=== PATIENT | female | born 1970 | race Caucasian/White ===

== ENCOUNTER 2016-08-04 07:29 | Inpatient (IN) | payer OTHER ==
[2016-08-04] MEDS ORDERED: IPRATROPIUM-ALBUTEROL 3 ML NEB INHALATION STA ×2 (08:02→10:04)
[2016-08-04] MEDS ORDERED: ONDANSETRON 4 MG/2 ML VIAL IVP STA (08:02)
--- NOTE | 2016-08-04 08:05 | ED ---
General Adult HPI - General Chief complaint: Upper Respiratory Infection Stated complaint: flu like symptoms, irregular heartrate Time Seen by Provider: 08/04/16 07:35 Source: patient, RN notes reviewed Mode of arrival: ambulatory Limitations: no limitations - History of Present Illness Initial comments: This is a 46-year-old female who presents emergency Department complaining of nausea vomiting and diarrhea for 6 days. Patient states her kids had the same thing but they have since gotten over it. Patient states she has no specific area of abdominal pain however it's just diffuse achiness because she still has a fever. Patient also states she's been wheezing and having some shortness of breath per patient states she is a smoker. Patient states she has a mild headache and somewhat lightheaded. Patient denies any dysuria hematuria urinary frequency. Patient denies any back pain. Patient denies any recent injury or trauma. Patient states she has a little bit lightheaded and generally weak all over. - Related Data Allergies Allergy/AdvReac Type Severity Reaction Status Date / Time latex Allergy Rash/Hives Verified 03/25/15 19:36 nifedipine [From Procardia] Allergy Unknown Verified 03/25/15 19:36 ofloxacin [From Floxin] Allergy Unknown Verified 03/25/15 19:37 olmesartan medoxomil Allergy Unknown Verified 03/25/15 19:36 [From Benicar] Review of Systems ROS Statement: Those systems with pertinent positive or pertinent negative responses have been documented in the HPI. ROS Other: All systems not noted in ROS Statement are negative. Past Medical History Past Medical History: Asthma, Hypertension Additional Past Medical History / Comment(s): migraines History of Any Multi-Drug Resistant Organisms: None Reported Past Surgical History: Cholecystectomy, Ear Surgery, Hysterectomy, Tubal Ligation Additional Past Surgical History / Comment(s): carpal tunnel, cone biopsy, core biopsy Past Psychological History: Anxiety Smoking Status: Current every day smoker Past Alcohol Use History: None Reported Past Drug Use History: None Reported General Exam - General Exam Comments Initial Comments: GENERAL: Patient is well-developed and well-nourished. Patient is nontoxic and well- hydrated and is in moderate distress. ENT: Neck is soft and supple. No significant lymphadenopathy is noted. Oropharynx is clear. Dry mucous membranes. Neck has full range of motion without eliciting any pain. EYES: The sclera were anicteric and conjunctiva were pink and moist. Extraocular movements were intact and pupils were equal round and reactive to light. Eyelids were unremarkable. PULMONARY: Unlabored respirations. Good breath sounds bilaterally. No audible rales rhonchi or wheezing was noted. CARDIOVASCULAR: There is a regular rate and rhythm without any murmurs gallops or rubs. ABDOMEN: Soft and nontender with normal bowel sounds. No palpable organomegaly was noted. There is no palpable pulsatile mass. SKIN: The upper chest just anything neck patient has erythematous rash is nontender and blanching. NEUROLOGIC: Patient is alert and oriented x3. Cranial nerves II through XII are grossly intact. Motor and sensory are also intact. Normal speech, volume and content. Symmetrical smile. MUSCULOSKELETAL: Normal extremities with adequate strength and full range of motion. No lower extremity swelling or edema. No calf tenderness. LYMPHATICS: No significant lymphadenopathy is noted PSYCHIATRIC: Normal psychiatric evaluation. Normal interpersonal interactions appears functionally intact in deals appropriately with others. No signs of depression. No signs of anxiety. Limitations: no limitations Course Vital Signs 08/04/16 08/04/16 08/04/16 07:31 09:02 09:20 Temperature 100.9 F H Pulse Rate 113 H 89 90 Respiratory 24 Rate Blood Pressure 188/96 O2 Sat by Pulse 95 Oximetry 08/04/16 08/04/16 08/04/16 09:37 09:46 10:25 Temperature 100.0 F H Pulse Rate 103 H 92 Respiratory 20 Rate Blood Pressure 136/77 O2 Sat by Pulse 95 Oximetry 08/04/16 10:54 Temperature Pulse Rate 117 H Respiratory 18 Rate Blood Pressure 145/61 O2 Sat by Pulse 92 L Oximetry Medical Decision Making - Medical Decision Making EKG shows sinus tachycardia at 107 bpm AL interval is on a 42 QRS 36 QT interval 374 QTC is 499. Patient's EKG shows a left bundle branch block. I went back into reevaluate the patient patient stated both of her ears hurt. I looked in both ears she had bulging tympanic membranes bilaterally with some erythema. I started the patient on some Rocephin. Chest x-ray shows no acute abnormality. I gave the patient 2 breathing treatments while in the emergency department continued to evaluate her throughout she continued to wheeze. He started patient on steroids. I spoke with sixto admitted I spoke with Dr. Ross she agreed to admit the patient admitted the patient I wrote orders I continued to appear on the floor antibiotics floor. Continued so from AL interval - Lab Data Result diagrams: 08/04/16 08:43 08/04/16 08:43 Lab Results 08/04/16 08/04/16 08/04/16 Range/Units 08:43 08:43 08:43 WBC 5.9 (3.8-10.6) k/uL RBC 5.23 (3.80-5.40) m/uL Hgb 16.3 H (11.4-16.0) gm/dL Hct 48.9 H (34.0-46.0) % MCV 93.5 (80.0-100.0) fL MCH 31.1 (25.0-35.0) pg MCHC 33.3 (31.0-37.0) g/dL RDW 13.2 (11.5-15.5) % Plt Count 106 L (150-450) k/uL Neutrophils % 79 % Lymphocytes % 12 % Monocytes % 5 % Eosinophils % 1 % Basophils % 1 % Neutrophils # 4.7 (1.3-7.7) k/uL Lymphocytes # 0.7 L (1.0-4.8) k/uL Monocytes # 0.3 (0-1.0) k/uL Eosinophils # 0.1 (0-0.7) k/uL Basophils # 0.1 (0-0.2) k/uL PT (9.0-12.0) sec INR (<1.1) APTT (22.0-30.0) sec Sodium 138 (137-145) mmol/L Potassium 3.6 (3.5-5.1) mmol/L Chloride 101 (98-107) mmol/L Carbon Dioxide 25 (22-30) mmol/L Anion Gap 12 mmol/L BUN 12 (7-17) mg/dL Creatinine 0.89 (0.52-1.04) mg/dL Est GFR (MDRD) Af Amer >60 (>60 ml/min/1.73 sqM) Est GFR (MDRD) Non-Af >60 (>60 ml/min/1.73 sqM) Glucose 97 (74-99) mg/dL Plasma Lactic Acid Larry (0.7-2.0) mmol/L Calcium 8.9 (8.4-10.2) mg/dL Total Bilirubin 0.6 (0.2-1.3) mg/dL AST 23 (14-36) U/L ALT 26 (9-52) U/L Alkaline Phosphatase 61 (38-126) U/L Total Creatine Kinase (30-135) U/L CK-MB (CK-2) (0.0-2.4) ng/mL CK-MB (CK-2) Rel Index Troponin I (0.000-0.034) ng/mL NT-Pro-B Natriuret Pep pg/mL Total Protein 7.2 (6.3-8.2) g/dL Albumin 4.0 (3.5-5.0) g/dL Urine Color Urine Appearance (Clear) Urine pH (5.0-8.0) Ur Specific [place] (1.001-1.035) Urine Protein (Negative) Urine Glucose (UA) (Negative) Urine Ketones (Negative) Urine Blood (Negative) Urine Nitrite (Negative) Urine Bilirubin (Negative) Urine Urobilinogen (<2.0) mg/dL Ur Leukocyte Esterase (Negative) Urine RBC (0-5) /hpf Urine WBC (0-5) /hpf Calcium Oxalate Crystal (None) /hpf Urine Bacteria (None) /hpf Urine Mucus (None) /hpf Influenza Type A RNA Not Detected (Not Detectd) Influenza Type B (PCR) Not Detected (Not Detectd) 08/04/16 08/04/16 08/04/16 Range/Units 08:43 08:43 08:43 WBC (3.8-10.6) k/uL RBC (3.80-5.40) m/uL Hgb (11.4-16.0) gm/dL Hct (34.0-46.0) % MCV (80.0-100.0) fL MCH (25.0-35.0) pg MCHC (31.0-37.0) g/dL RDW (11.5-15.5) % Plt Count (150-450) k/uL Neutrophils % % Lymphocytes % % Monocytes % % Eosinophils % % Basophils % % Neutrophils # (1.3-7.7) k/uL Lymphocytes # (1.0-4.8) k/uL Monocytes # (0-1.0) k/uL Eosinophils # (0-0.7) k/uL Basophils # (0-0.2) k/uL PT 10.9 (9.0-12.0) sec INR 1.1 (<1.1) APTT 35.2 H (22.0-30.0) sec Sodium (137-145) mmol/L Potassium (3.5-5.1) mmol/L Chloride (98-107) mmol/L Carbon Dioxide (22-30) mmol/L Anion Gap mmol/L BUN (7-17) mg/dL Creatinine (0.52-1.04) mg/dL Est GFR (MDRD) Af Amer (>60 ml/min/1.73 sqM) Est GFR (MDRD) Non-Af (>60 ml/min/1.73 sqM) Glucose (74-99) mg/dL Plasma Lactic Acid Larry 1.2 (0.7-2.0) mmol/L Calcium (8.4-10.2) mg/dL Total Bilirubin (0.2-1.3) mg/dL AST (14-36) U/L ALT (9-52) U/L Alkaline Phosphatase (38-126) U/L Total Creatine Kinase 107 (30-135) U/L CK-MB (CK-2) 0.3 (0.0-2.4) ng/mL CK-MB (CK-2) Rel Index 0.3 Troponin I <0.012 (0.000-0.034) ng/mL NT-Pro-B Natriuret Pep pg/mL Total Protein (6.3-8.2) g/dL Albumin (3.5-5.0) g/dL Urine Color Urine Appearance (Clear) Urine pH (5.0-8.0) Ur Specific [place] (1.001-1.035) Urine Protein (Negative) Urine Glucose (UA) (Negative) Urine Ketones (Negative) Urine Blood (Negative) Urine Nitrite (Negative) Urine Bilirubin (Negative) Urine Urobilinogen (<2.0) mg/dL Ur Leukocyte Esterase (Negative) Urine RBC (0-5) /hpf Urine WBC (0-5) /hpf Calcium Oxalate Crystal (None) /hpf Urine Bacteria (None) /hpf Urine Mucus (None) /hpf Influenza Type A RNA (Not Detectd) Influenza Type B (PCR) (Not Detectd) 08/04/16 08/04/16 Range/Units 08:53 10:54 WBC (3.8-10.6) k/uL RBC (3.80-5.40) m/uL Hgb (11.4-16.0) gm/dL Hct (34.0-46.0) % MCV (80.0-100.0) fL MCH (25.0-35.0) pg MCHC (31.0-37.0) g/dL RDW (11.5-15.5) % Plt Count (150-450) k/uL Neutrophils % % Lymphocytes % % Monocytes % % Eosinophils % % Basophils % % Neutrophils # (1.3-7.7) k/uL Lymphocytes # (1.0-4.8) k/uL Monocytes # (0-1.0) k/uL Eosinophils # (0-0.7) k/uL Basophils # (0-0.2) k/uL PT (9.0-12.0) sec INR (<1.1) APTT (22.0-30.0) sec Sodium (137-145) mmol/L Potassium (3.5-5.1) mmol/L Chloride (98-107) mmol/L Carbon Dioxide (22-30) mmol/L Anion Gap mmol/L BUN (7-17) mg/dL Creatinine (0.52-1.04) mg/dL Est GFR (MDRD) Af Amer (>60 ml/min/1.73 sqM) Est GFR (MDRD) Non-Af (>60 ml/min/1.73 sqM) Glucose (74-99) mg/dL Plasma Lactic Acid Larry (0.7-2.0) mmol/L Calcium (8.4-10.2) mg/dL Total Bilirubin (0.2-1.3) mg/dL AST (14-36) U/L ALT (9-52) U/L Alkaline Phosphatase (38-126) U/L Total Creatine Kinase (30-135) U/L CK-MB (CK-2) (0.0-2.4) ng/mL CK-MB (CK-2) Rel Index Troponin I (0.000-0.034) ng/mL NT-Pro-B Natriuret Pep 79 pg/mL Total Protein (6.3-8.2) g/dL Albumin (3.5-5.0) g/dL Urine Color Yellow Urine Appearance Clear (Clear) Urine pH 6.0 (5.0-8.0) Ur Specific [place] 1.024 (1.001-1.035) Urine Protein 1+ H (Negative) Urine Glucose (UA) Negative (Negative) Urine Ketones 4+ H (Negative) Urine Blood Negative (Negative) Urine Nitrite Negative (Negative) Urine Bilirubin Negative (Negative) Urine Urobilinogen <2.0 (<2.0) mg/dL Ur Leukocyte Esterase Negative (Negative) Urine RBC 9 H (0-5) /hpf Urine WBC 4 (0-5) /hpf Calcium Oxalate Crystal Rare H (None) /hpf Urine Bacteria Rare H (None) /hpf Urine Mucus Rare H (None) /hpf Influenza Type A RNA (Not Detectd) Influenza Type B (PCR) (Not Detectd) Critical Care Time Critical Care Time: Yes Total Critical Care Time: 35 Disposition Clinical Impression: Otitis media, Bronchitis with bronchospasm, Gastroenteritis Disposition: ADMITTED IP TO THIS HOSP Referrals: Anival Gann DO [Primary Care Provider] - 1-2 days Time of Disposition: 11:35
[2016-08-04] MEDS ORDERED: ACETAMINOPHEN IV (For NPO) 1,000 MG in EMPTY BAG 1 BAG IVPB STA (08:06)
[2016-08-04] MEDS ORDERED: IBUPROFEN IV 600 MG in SODIUM CHLORIDE 0.9% 250 ML IV STA (08:06)
[2016-08-04] MEDS: SODIUM CHLORIDE 0.9% 500 ML IV SCH ×2 (08:27→08:28)
[2016-08-04 08:58] LABS: Basophils # (A) 0.1 k/uL (0-0.2); Basophils % (A) 1 %; CH 31.8; CHCM 34.1; Eosinophils # (A) 0.1 k/uL (0-0.7); Eosinophils % (A) 1 %; HCT 48.9 % (34.0-46.0); HDW 2.26; HGB 16.3 gm/dL (11.4-16.0); Luc # (Auto) 0.15; Luc % (Auto) 3; Lymphocytes # (A) 0.7 k/uL (1.0-4.8); Lymphocytes % (A) 12 %; MCH 31.1 pg (25.0-35.0); MCHC 33.3 g/dL (31.0-37.0); MCV 93.5 fL (80.0-100.0); Mean Platelet Volume 8.8; Monocytes # (A) 0.3 k/uL (0-1.0); Monocytes % (A) 5 %; Neutrophils # (A) 4.7 k/uL (1.3-7.7); Neutrophils % (A) 79 %; RBC 5.23 m/uL (3.80-5.40); RDW 13.2 % (11.5-15.5); WBC 5.9 k/uL (3.8-10.6); WBC (Perox) 5.83
[2016-08-04 09:09] LABS: ALT 26 U/L (9-52); AST 23 U/L (14-36); Alkaline Phosphatase 61 U/L (38-126); Anion Gap 12 mmol/L; Blood Urea Nitrogen 12 mg/dL (7-17); Calcium 8.9 mg/dL (8.4-10.2); Carbon Dioxide 25 mmol/L (22-30); Chloride 101 mmol/L (98-107); Glucose 97 mg/dL (74-99); Non-African American GFR(MDRD) >60 (>60 ml/min/1.73 sqM); Potassium 3.6 mmol/L (3.5-5.1); Sodium 138 mmol/L (137-145); Total Bilirubin 0.6 mg/dL (0.2-1.3); Total Protein 7.2 g/dL (6.3-8.2)
[2016-08-04 09:10] LABS: INR 1.1 (<1.1); Partial Thromboplastin Time 35.2 sec (22.0-30.0); Prothrombin Time 10.9 sec (9.0-12.0)
[2016-08-04 09:21] LABS: Creatine Kinase 107 U/L (30-135)
[2016-08-04 09:33] LABS: Creatine Kinase MB 0.3 ng/mL (0.0-2.4); Troponin I <0.012 ng/mL (0.000-0.034)
--- NOTE | 2016-08-04 09:50 | XR ---
EXAMINATION TYPE: XR chest 2V DATE OF EXAM: 08/04/2016 8:56 AM COMPARISON: Prior chest x-ray January 29, 2012 HISTORY: Fever, cough, and congestion. TECHNIQUE: Frontal and lateral views of the chest are obtained. FINDINGS: Some mild central vascular congestion is felt present. There are tiny bilateral pleural eff usions with blunting of posterior costophrenic angles. There is no suspicious focal airspace opacity or pneumothorax The cardiac silhouette size is within normal limits. The osseous structures are int act. IMPRESSION: Suspect fluid overload state as there are new tiny bilateral pleural effusions and mild central vascular congestion present.
[2016-08-04] MEDS ORDERED: methylPREDNISolone SOD SUCCI 125 MG/2 ML VIAL IV STA (10:04)
[2016-08-04 11:14] LABS: Appearance,Urine Clear (Clear); Bacteria,Urine Rare /hpf; Bilirubin,Urine Negative (Negative); Calcium Oxalate Crystals,Urine Rare /hpf; Glucose,Urine (UA) Negative (Negative); Ketones,Urine 4+ (Negative); Leukocyte Esterase,Urine Negative (Negative); Mucus,Urine Rare /hpf; Nitrite,Urine Negative (Negative); Particle Count 8339; Protein,Urine 1+ (Negative); RBC,Urine 9 /hpf (0-5); Specific Gravity,Urine 1.024 (1.001-1.035); UA Billing (MACRO vs. MICRO) MICRO; Urobilinogen,Urine <2.0 mg/dL (<2.0); WBC,Urine 4 /hpf (0-5)
[2016-08-04] MEDS ORDERED: ONDANSETRON ODT 4 MG TAB PO PRN (11:40)
[2016-08-04] MEDS: SODIUM CHLORIDE 0.9% 1,000 ML IV SCH ×2 (11:55→20:57)
[2016-08-04] MEDS: AZITHROMYCIN 500 MG TAB PO SCH (14:29)
[2016-08-04] MEDS ORDERED: FUROSEMIDE 20 MG TAB PO PRN (14:55)
[2016-08-04] MEDS: IPRATROPIUM-ALBUTEROL 3 ML NEB INHALATION SCH ×3 (15:00→20:25)
[2016-08-04] MEDS ORDERED: BENZONATATE 100 MG CAP PO STA (16:35)
--- NOTE | 2016-08-04 16:41 | P.HPIM ---
History of Present Illness H&P Date: 08/04/16 Chief Complaint: wheezing diarrhea ThIs a pleasant 46-year-old lady patient of Dr. Gann. She has underlying history of asthma, hypertension migraines who presented to emergency room secondary to nausea vomiting and diarrhea for the past 6 days. It looks likefamily members also have the same problem, patient has diffuse muscle aches abdominal pain low-grade fever. She also has been wheezing with shortness of breath and is currently a smoker. Patient denies any urinary frequency no dysuria no hematuria, no recent falls no lightheadedness, patient has mild headache, she also has a generalized rash and weakness. she also uses her ventolin on a daily basis. she hasn,t seen her pcp in 1 year. no previous pulmonary doctor in past Emergency roomC was 5.9 creatinine 0.89 the rest of the liver function tests is normal platelet count is low at 106, urinalysis shows 4 WBC and 9 RBC castro tones 4+ gravity 1.024 and ntBNP of 81 ma influenza a and B PCR negative She was admitted secondary to dehydration and asthma COPD exacerbation has x- ray shows no suspicious focal airspace disease or pneumothorax, however there is tiny bilateral pleural effusion and mild central vascular congestion her nt BNP is normal Review of Systems Constitutional: Reports anorexia, Reports chills, Reports fatigue, Reports fever , Reports weakness, Denies as per HPI, Denies chronic headaches, Denies chronic pain, Denies daytime sleepiness, Denies lethargy, Denies malaise, Denies night sweats, Denies poor appetite, Denies sweats, Denies weight gain, Denies weight loss Ears, nose, mouth and throat: Reports as per HPI, Denies ant. neck pain, Denies bleeding gums, Denies dental pain, Denies dysphagia, Denies epistaxis, Denies headache, Denies hoarseness, Denies mouth pain, Denies nasal congestion, Denies nasal discharge, Denies neck fullness/pressure, Denies neck lump, Denies nose pain, Denies odynophagia, Denies post-nasal drip, Denies sinus pain, Denies sinus pressure, Denies swelling in mouth, Denies swelling in throat, Denies sore throat, Denies vertigo, Denies voice changes Cardiovascular: Reports as per HPI, Denies chest pain, Denies claudication, Denies decreased exercise tolerance, Denies dyspnea on exertion, Denies edema, Denies high blood pressure, Denies irregular heart beat, Denies leg edema, Denies lightheadedness, Denies orthopnea, Denies palpitations, Denies paroxysmal nocturnal dyspnea, Denies phlebitis, Denies rapid heart beat, Denies shortness of breath, Denies syncope Respiratory: Reports as per HPI, Reports cough, Reports cough with sputum, Reports wheezing, Denies congestion, Denies dyspnea, Denies excessive sputum, Denies hemoptysis, Denies home oxygen, Denies pain, Denies pain on inspiration, Denies pleurisy, Denies respiratory infections, Denies sleep apnea, Denies snoring Gastrointestinal: Reports as per HPI, Denies abdominal pain, Denies belching, Denies bloating, Denies BRBPR, Denies change in bowel habits, Denies coffee ground emesis, Denies constipation, Denies diarrhea, Denies dyspepsia, Denies early satiety, Denies excessive gas, Denies heartburn, Denies hematemesis, Denies hematochezia, Denies indigestion, Denies jaundice, Denies lactose intolerance, Denies loss of appetite, Denies melena, Denies nausea, Denies vomiting Genitourinary: Reports as per HPI Menstruation: Reports as per HPI, Denies amenorrhea, Denies amenorrhea on BC, Denies currently menstrual, Denies cycle < 21 days, Denies cycle > 35 days, Denies cycle variable, Denies menses 1-7 days, Denies menses 8 or > days, Denies menses variable, Denies period heavy, Denies period light, Denies period normal, Denies period spotting, Denies post hysterectomy, Denies postmenopausal , Denies premenarcheal Musculoskeletal: Reports as per HPI, Denies arm numbness/tingling, Denies atrophy, Denies fractures, Denies frequent falls, Denies gait dysfunction, Denies hot joints, Denies leg numbness/tingling, Denies limitation of motion, Denies loss of height, Denies low back pain, Denies morning stiffness, Denies muscle cramps, Denies muscle weakness, Denies myalgias, Denies neck pain, Denies neck stiffness, Denies prior amputations, Denies redness of joints, Denies shooting arm pain, Denies shooting leg pain Integumentary: Reports rash Neurological: Reports as per HPI, Denies aphasia, Denies ataxia, Denies balance difficulties, Denies burning pain, Denies change in mentation, Denies change in smell/taste, Denies change in speech, Denies confusion, Denies convulsions, Denies double vision, Denies gait dysfunction, Denies head injury, Denies headaches, Denies hearing difficulties, Denies lack of coordination, Denies loss of vision, Denies memory loss, Denies migraines, Denies motor disturbance, Denies numbness, Denies paralysis, Denies paresthesias, Denies seizures, Denies sensory deficit, Denies spasticity, Denies syncope, Denies tic, Denies tingling , Denies transient paralysis, Denies tremors, Denies vertigo, Denies weakness, Denies visual changes Psychiatric: Reports as per HPI Endocrine: Reports as per HPI, Denies cold intolerance, Denies deepening of the voice, Denies excessive sweating, Denies excessive thirst, Denies fatigue, Denies flushing, Denies heat intolerance, Denies high blood sugars, Denies increase in ring/shoe/hat size, Denies low blood sugars, Denies nocturia, Denies palpitations, Denies polydipsia, Denies polyphagia, Denies polyuria, Denies proptosis, Denies recent glucocorticoid use, Denies thyroid mass, Denies weight change Hematologic/Lymphatic: Reports as per HPI, Denies easy bleeding, Denies easy bruising, Denies lymphadenopathy, Denies lymphedema, Denies thrombophilia Allergic/Immunologic: Reports as per HPI, Denies allergic rhinitis, Denies anaphylaxis, Denies angioedema, Denies gluten intolerance, Denies persistent infections, Denies seasonal allergies, Denies urticaria, Denies wheezing Past Medical History Past Medical History: Asthma, Hypertension Additional Past Medical History / Comment(s): migraines History of Any Multi-Drug Resistant Organisms: None Reported Past Surgical History: Cholecystectomy, Ear Surgery, Hysterectomy, Tubal Ligation Additional Past Surgical History / Comment(s): carpal tunnel, cone biopsy, core biopsy Past Psychological History: Anxiety Smoking Status: Current some day smoker Past Alcohol Use History: None Reported Past Drug Use History: None Reported Medications and Allergies Home Medications Medication Instructions Recorded Confirmed Type Albuterol Inhaler [Ventolin Hfa 2 puff INHALATION RT-QID PRN 08/04/16 08/04/16 History Inhaler] Furosemide [Lasix] 20 mg PO DAILY PRN 08/04/16 08/04/16 History Losartan/Hydrochlorothiazide 1 tab PO DAILY 08/04/16 08/04/16 History [Losartan-Hctz 50-12.5 mg Tab] cloNIDine HCL [Catapres] 0.1 mg PO HS 08/04/16 08/04/16 History Allergies Allergy/AdvReac Type Severity Reaction Status Date / Time latex Allergy Dyspnea/Bret Verified 08/04/16 11:49 h/Hives ofloxacin [From Floxin] Allergy Swelling Verified 08/04/16 11:49 of Ear Drums nifedipine [From Procardia] AdvReac Increased Verified 08/04/16 11:49 Blood Pressure olmesartan medoxomil AdvReac Decreased Verified 08/04/16 11:49 [From Benicar] Heart Rate Physical Exam Vitals: Vital Signs Temp Pulse Pulse Resp BP BP Pulse Ox 08/04/16 15:45 97.8 F 106 H 16 178/84 93 L 08/04/16 15:13 92 08/04/16 15:03 88 93 L 08/04/16 14:42 97.9 F 106 H 16 156/79 93 L 08/04/16 12:07 98.8 F 109 H 18 131/64 94 L Intake and Output 08/04/16 08/04/16 08/04/16 06:59 14:59 22:59 Other: Voiding Method Toilet # Voids 1 - Constitutional General appearance: cooperative, no acute distress, obese - EENT Eyes: anicteric sclerae, EOMI, PERRLA, dentition normal, normal appearance ENT: hearing grossly normal, NA/AT, normal oropharynx - Neck Neck: no lymphadenopathy, normal ROM, no other, no rigidity, no stridor, no thyromegaly - Respiratory Respiratory: bilateral: CTA, negative: diminished, dullness, rales - Cardiovascular Rhythm: regular Heart sounds: normal: S1, S2 Abnormal Heart Sounds: no systolic murmur, no diastolic murmur, no rub, no S3 Gallop, no S4 Gallop, no click, no other - Gastrointestinal General gastrointestinal: soft - Integumentary Integumentary: normal - Neurologic Neurologic: CNII-XII intact - Musculoskeletal Musculoskeletal: gait normal, strength equal bilaterally - Psychiatric Psychiatric: A&O x's 3, intact judgment & insight Results CBC & Chem 7: 08/04/16 08:43 08/04/16 08:43 Labs: Laboratory Results WBC 5.9 k/uL (3.8-10.6) 08/04/16 08:43 RBC 5.23 m/uL (3.80-5.40) 08/04/16 08:43 Hgb 16.3 gm/dL (11.4-16.0) H 08/04/16 08:43 Hct 48.9 % (34.0-46.0) H 08/04/16 08:43 MCV 93.5 fL (80.0-100.0) 08/04/16 08:43 MCH 31.1 pg (25.0-35.0) 08/04/16 08:43 MCHC 33.3 g/dL (31.0-37.0) 08/04/16 08:43 RDW 13.2 % (11.5-15.5) 08/04/16 08:43 Plt Count 106 k/uL (150-450) L 08/04/16 08:43 Neutrophils % 79 % 08/04/16 08:43 Lymphocytes % 12 % 08/04/16 08:43 Monocytes % 5 % 08/04/16 08:43 Eosinophils % 1 % 08/04/16 08:43 Basophils % 1 % 08/04/16 08:43 Neutrophils # 4.7 k/uL (1.3-7.7) 08/04/16 08:43 Lymphocytes # 0.7 k/uL (1.0-4.8) L 08/04/16 08:43 Monocytes # 0.3 k/uL (0-1.0) 08/04/16 08:43 Eosinophils # 0.1 k/uL (0-0.7) 08/04/16 08:43 Basophils # 0.1 k/uL (0-0.2) 08/04/16 08:43 PT 10.9 sec (9.0-12.0) 08/04/16 08:43 INR 1.1 (<1.1) 08/04/16 08:43 APTT 35.2 sec (22.0-30.0) H 08/04/16 08:43 Sodium 138 mmol/L (137-145) 08/04/16 08:43 Potassium 3.6 mmol/L (3.5-5.1) 08/04/16 08:43 Chloride 101 mmol/L (98-107) 08/04/16 08:43 Carbon Dioxide 25 mmol/L (22-30) 08/04/16 08:43 Anion Gap 12 mmol/L 08/04/16 08:43 BUN 12 mg/dL (7-17) 08/04/16 08:43 Creatinine 0.89 mg/dL (0.52-1.04) 08/04/16 08:43 Est GFR (MDRD) Af Amer >60 (>60 ml/min/1.73 sqM) 08/04/16 08:43 Est GFR (MDRD) Non-Af >60 (>60 ml/min/1.73 sqM) 08/04/16 08:43 Glucose 97 mg/dL (74-99) 08/04/16 08:43 Plasma Lactic Acid Larry 1.2 mmol/L (0.7-2.0) 08/04/16 08:43 Calcium 8.9 mg/dL (8.4-10.2) 08/04/16 08:43 Total Bilirubin 0.6 mg/dL (0.2-1.3) 08/04/16 08:43 AST 23 U/L (14-36) 08/04/16 08:43 ALT 26 U/L (9-52) 08/04/16 08:43 Alkaline Phosphatase 61 U/L (38-126) 08/04/16 08:43 Total Creatine Kinase 107 U/L (30-135) 08/04/16 08:43 CK-MB (CK-2) 0.3 ng/mL (0.0-2.4) 08/04/16 08:43 CK-MB (CK-2) Rel Index 0.3 08/04/16 08:43 Troponin I <0.012 ng/mL (0.000-0.034) 08/04/16 08:43 NT-Pro-B Natriuret Pep 79 pg/mL 08/04/16 08:53 Total Protein 7.2 g/dL (6.3-8.2) 08/04/16 08:43 Albumin 4.0 g/dL (3.5-5.0) 08/04/16 08:43 Urine Color Yellow 08/04/16 10:54 Urine Appearance Clear (Clear) 08/04/16 10:54 Urine pH 6.0 (5.0-8.0) 08/04/16 10:54 Ur Specific [place] 1.024 (1.001-1.035) 08/04/16 10:54 Urine Protein 1+ (Negative) H 08/04/16 10:54 Urine Glucose (UA) Negative (Negative) 08/04/16 10:54 Urine Ketones 4+ (Negative) H 08/04/16 10:54 Urine Blood Negative (Negative) 08/04/16 10:54 Urine Nitrite Negative (Negative) 08/04/16 10:54 Urine Bilirubin Negative (Negative) 08/04/16 10:54 Urine Urobilinogen <2.0 mg/dL (<2.0) 08/04/16 10:54 Ur Leukocyte Esterase Negative (Negative) 08/04/16 10:54 Urine RBC 9 /hpf (0-5) H 08/04/16 10:54 Urine WBC 4 /hpf (0-5) 08/04/16 10:54 Calcium Oxalate Crystal Rare /hpf (None) H 08/04/16 10:54 Urine Bacteria Rare /hpf (None) H 08/04/16 10:54 Urine Mucus Rare /hpf (None) H 08/04/16 10:54 Influenza Type A RNA Not Detected (Not Detectd) 08/04/16 08:43 Influenza Type B (PCR) Not Detected (Not Detectd) 08/04/16 08:43 Thrombosis Risk Factor Assmnt - DVT/VTE Prophylaxis DVT/VTE Prophylaxis: Low risk, early ambulation encouraged - Choose All That Apply Any of the Below Risk Factors Present?: Yes Each Factor Represents 1 point: Age 41-60 years, Obesity (BMI >25) Other Risk Factors: No Thrombosis Risk Factor Assessment Total Risk Factor Score: 2 Thrombosis Risk Factor Assessment Level: Low Risk Assessment and Plan Plan: 1. Acute moderate persistent asthma/COPD exacerbation currently a smoker, patient will be given Solu-Medrol X milligrams every 6 hours with nebulized albuterol and Atrovent, Zithromax for bronchitis patient was recommended to quit smoking altogether, monitor x-rays and pulmonary compensation. tessalon and vistartil. patient needs steorid inhalers on discharge along with tapering prednisone 2. Hypertension on Hyzaar 50/12.5 at the press and Lasix when necessary 3. Ketonuria with acute dehydration secondary to viral syndrome presenting with diarrhea, stool studies will be obtained as symptoms are still persistentent, lasix on hold, IV hydrations provided 4. viral exanthem, doubt measles, or fifth disease or scarlatina. Cannot rule out rubeola or [place] measles. contact precautions. 5. mild thrombocytopenia. monitor cbc 4. Tobacco dependency patient will be offered nicotine patches, which cant take secondary to adhesive irritation, declined chantix. X 5. GI prophylaxis and DVT prophylaxis 6. lack of insurance coverage, delinquency prevention social worker on consult
[2016-08-04] MEDS: hydrOXYzine PAMOATE 25 MG CAP PO PRN (17:45)
[2016-08-04] MEDS: methylPREDNISolone SOD SUCCI 125 MG/2 ML VIAL IV SCH ×2 (17:45→23:50)
[2016-08-04] MEDS: cloNIDine HCL 0.1 MG TAB PO SCH (17:46)
[2016-08-04] MEDS ORDERED: ONDANSETRON 4 MG/2 ML VIAL IVP PRN (17:52)
[2016-08-04] MEDS: MELOXICAM 7.5 MG TAB PO PRN (18:47)
[2016-08-04] MEDS: FAMOTIDINE 20 MG TAB PO SCH (20:57)
[2016-08-04] MEDS: BENZONATATE 100 MG CAP PO SCH (20:57)
[2016-08-05] MEDS: IPRATROPIUM-ALBUTEROL 3 ML NEB INHALATION PRN (02:11)
[2016-08-05] MEDS: methylPREDNISolone SOD SUCCI 125 MG/2 ML VIAL IV SCH ×2 (05:53→12:22)
[2016-08-05] MEDS: SODIUM CHLORIDE 0.9% 1,000 ML IV SCH ×4 (05:53→20:50)
[2016-08-05] MEDS: hydrOXYzine PAMOATE 25 MG CAP PO PRN (06:05)
[2016-08-05] MEDS: MELOXICAM 7.5 MG TAB PO PRN (06:55)
[2016-08-05] MEDS: IPRATROPIUM-ALBUTEROL 3 ML NEB INHALATION SCH ×4 (07:49→20:29)
[2016-08-05 07:55] LABS: Basophils % (A) 0 %; CHCM 34.6; Eosinophils % (A) 0 %; HCT 45.8 % (34.0-46.0); HDW 2.42; HGB 15.5 gm/dL (11.4-16.0); Luc # (Auto) 0.11; Luc % (Auto) 1; Lymphocytes # (A) 0.9 k/uL (1.0-4.8); Lymphocytes % (A) 10 %; MCH 31.4 pg (25.0-35.0); MCHC 33.8 g/dL (31.0-37.0); MCV 92.9 fL (80.0-100.0); Mean Platelet Volume 9.4; Monocytes # (A) 0.2 k/uL (0-1.0); Monocytes % (A) 3 %; Neutrophils # (A) 7.7 k/uL (1.3-7.7); Neutrophils % (A) 86 %; RBC 4.93 m/uL (3.80-5.40); WBC 8.9 k/uL (3.8-10.6); WBC (Perox) 8.82
[2016-08-05 08:14] LABS: ALT 23 U/L (9-52); AST 36 U/L (14-36); Alkaline Phosphatase 41 U/L (38-126); Anion Gap 10 mmol/L; Blood Urea Nitrogen 8 mg/dL (7-17); Carbon Dioxide 24 mmol/L (22-30); Chloride 108 mmol/L (98-107); Glucose 144 mg/dL (74-99); Non-African American GFR(MDRD) >60 (>60 ml/min/1.73 sqM); Sodium 142 mmol/L (137-145); Total Bilirubin 0.6 mg/dL (0.2-1.3); Total Protein 6.9 g/dL (6.3-8.2)
[2016-08-05 08:27] LABS: Potassium 4.4 mmol/L (3.5-5.1)
[2016-08-05] MEDS: LOSARTAN-HCTZ 50-12.5 MG 1 EACH TAB PO SCH (08:45)
[2016-08-05] MEDS: FAMOTIDINE 20 MG TAB PO SCH ×2 (08:45→20:25)
[2016-08-05] MEDS: BENZONATATE 100 MG CAP PO SCH ×4 (08:46→20:27)
[2016-08-05] MEDS: CHLORPHEN-HYDROcod 8-10mg/5ml 5 ML ORAL.SYRG PO PRN (11:30)
[2016-08-05] MEDS: AZITHROMYCIN 500 MG TAB PO SCH (16:01)
[2016-08-05] MEDS ORDERED: hydrOXYzine PAMOATE 25 MG CAP PO PRN (17:27)
--- NOTE | 2016-08-05 18:29 | P.PN ---
Subjective ThIs a pleasant 46-year-old lady patient of Dr. Gann. She has underlying history of asthma, hypertension migraines who presented to emergency room secondary to nausea vomiting and diarrhea for the past 6 days. It looks likefamily members also have the same problem, patient has diffuse muscle aches abdominal pain low-grade fever. She also has been wheezing with shortness of breath and is currently a smoker. Patient denies any urinary frequency no dysuria no hematuria, no recent falls no lightheadedness, patient has mild headache, she also has a generalized rash and weakness Emergency roomC was 5.9 creatinine 0.89 the rest of the liver function tests is normal platelet count is low at 106, urinalysis shows 4 WBC and 9 RBC castro tones 4+ gravity 1.024 and ntBNP of 81 ma influenza a and B PCR negative She was admitted secondary to dehydration and asthma COPD exacerbation 08/05: Patient is extremely anxious currently she is mentally distress, hasn't slept since yesterday, she has incessant cough no hemoptysis, torso rash is getting better however more rash showed up in the neck and anterior chest. She tussionex started Vistaril increased decrease Solu-Medrol, maintained nebulized treatments and Tessalon Perles Objective - Vital Signs Vital signs: Vital Signs Temp 98 F 08/05/16 16:00 Pulse 100 08/05/16 16:12 Resp 16 08/05/16 16:00 BP 165/94 08/05/16 16:00 Pulse Ox 96 08/05/16 16:00 Intake & Output 08/04/16 08/05/16 08/05/16 18:59 06:59 18:59 Other: Voiding Method Toilet Toilet # Voids 1 - Constitutional General appearance: Present: cooperative, no acute distress. Absent: average body habitus, disheveled, mild distress, morbidly obese, obese, severe distress , thin - EENT Eyes: Present: anicteric sclerae, EOMI, PERRLA, dentition normal, normal appearance ENT: Present: hearing grossly normal, NA/AT, normal oropharynx - Neck Neck: Present: normal ROM. Absent: lymphadenopathy, other, rigidity, stridor, thyromegaly - Respiratory Respiratory: bilateral: diminished, wheezing, negative: rales, rhonchi, prolonged expiration, prolonged inspiration - Cardiovascular Rhythm: regular Heart sounds: normal: S1, S2 Abnormal Heart Sounds: Absent: systolic murmur, diastolic murmur, rub, S3 Gallop , S4 Gallop, click, other - Gastrointestinal General gastrointestinal: Present: normal bowel sounds, soft - Integumentary Integumentary: Present: normal, normal turgor, rash (Improving fine non- petechial rash) - Neurologic Neurologic: Present: CNII-XII intact - Musculoskeletal Musculoskeletal: Present: gait normal, strength equal bilaterally - Psychiatric Psychiatric: Present: A&O x's 3, appropriate affect, intact judgment & insight - Labs CBC & Chem 7: 08/05/16 06:36 08/05/16 06:36 Labs: Abnormal Lab Results - Last 24 Hours (Table) 08/05/16 08/05/16 Range/Units 06:36 06:36 Plt Count 104 L (150-450) k/uL Lymphocytes # 0.9 L (1.0-4.8) k/uL Chloride 108 H (98-107) mmol/L Glucose 144 H (74-99) mg/dL Assessment and Plan Plan: 1. Acute moderate persistent asthma/COPD exacerbation currently a smoker, patient will be given Solu-Medrol X milligrams every 6 hours with nebulized albuterol and Atrovent, Zithromax and Rocephin for bronchitis patient was recommended to quit smoking altogether, monitor x-rays and pulmonary compensation. tessalon and vistartil. patient needs steorid inhalers on discharge along with tapering prednisone 2. Hypertension on Hyzaar 50/12.5 at the press and Lasix when necessary 3. Ketonuria with acute dehydration secondary to viral syndrome presenting with diarrhea, stool studies will be obtained as symptoms are still persistentent, lasix on hold, IV hydrations provided 4. viral exanthem, doubt measles, or fifth disease or scarlatina. She also was exposed to moldy body of water prior to the rash breakout and the diarrhea Cannot rule out rubeola or [place] measles. Cannot rule out meningitis. Patient refuses any spinal tap, contact precautions. Patients rash is improving significantly with steroids 5. mild thrombocytopenia. monitor cbc 4. Tobacco dependency patient will be offered nicotine patches, which cant take secondary to adhesive irritation, declined chantix. 5. Chronic neck pain secondary to prior head concussion, no meningeal symptoms 5. GI prophylaxis and DVT prophylaxis 6. lack of insurance coverage, social media strategist on consult 10. Insomnia and anxiety, underlying history of anxiety depression possibly bipolar, sleep hygiene increase Vistaril to 50 mg when necessary, melatonin started Time with Patient: Greater than 30
[2016-08-05] MEDS: methylPREDNISolone SOD SUCCI 40 MG/ML 1 ML VIAL IV SCH (18:42)
[2016-08-05] MEDS ORDERED: LORazepam 2 MG/ML SYRINGE IV PRN (18:43)
[2016-08-05] MEDS ORDERED: LORazepam 2 MG/ML SYRINGE IV STA (18:45)
[2016-08-05 20:11] LABS: Glucose,Whole Blood 110 mg/dL (75-99)
[2016-08-05] MEDS: cloNIDine HCL 0.1 MG TAB PO SCH (20:25)
[2016-08-05] MEDS ORDERED: hydrOXYzine PAMOATE 25 MG CAP PO SCH (21:00)
[2016-08-06] MEDS: SODIUM CHLORIDE 0.9% 1,000 ML IV SCH (00:17)
[2016-08-06] MEDS: CHLORPHEN-HYDROcod 8-10mg/5ml 5 ML ORAL.SYRG PO PRN ×2 (00:17→12:21)
[2016-08-06] MEDS: methylPREDNISolone SOD SUCCI 40 MG/ML 1 ML VIAL IV SCH ×2 (00:19→08:37)
[2016-08-06] MEDS: IPRATROPIUM-ALBUTEROL 3 ML NEB INHALATION PRN (00:26)
[2016-08-06 07:30] LABS: Basophils # (A) 0.1 k/uL (0-0.2); Basophils % (A) 1 %; CH 31.2; Eosinophils % (A) 0 %; HCT 46.3 % (34.0-46.0); HDW 2.38; HGB 15.2 gm/dL (11.4-16.0); Luc # (Auto) 0.19; Luc % (Auto) 2; Lymphocytes # (A) 1.1 k/uL (1.0-4.8); Lymphocytes % (A) 9 %; MCH 31.2 pg (25.0-35.0); MCHC 32.7 g/dL (31.0-37.0); MCV 95.3 fL (80.0-100.0); Mean Platelet Volume 8.8; Monocytes # (A) 0.4 k/uL (0-1.0); Monocytes % (A) 3 %; Neutrophils # (A) 10.5 k/uL (1.3-7.7); Neutrophils % (A) 86 %; RBC 4.86 m/uL (3.80-5.40); RDW 13.2 % (11.5-15.5); WBC 12.3 k/uL (3.8-10.6); WBC (Perox) 12.31
[2016-08-06 07:53] LABS: ALT 22 U/L (9-52); AST 42 U/L (14-36); Alkaline Phosphatase 52 U/L (38-126); Anion Gap 12 mmol/L; Blood Urea Nitrogen 9 mg/dL (7-17); Calcium 9.6 mg/dL (8.4-10.2); Carbon Dioxide 28 mmol/L (22-30); Chloride 104 mmol/L (98-107); Glucose 97 mg/dL (74-99); Non-African American GFR(MDRD) >60 (>60 ml/min/1.73 sqM); Potassium 3.9 mmol/L (3.5-5.1); Sodium 144 mmol/L (137-145); Total Bilirubin 0.5 mg/dL (0.2-1.3); Total Protein 7.2 g/dL (6.3-8.2)
[2016-08-06] MEDS: FAMOTIDINE 20 MG TAB PO SCH (08:44)
[2016-08-06] MEDS: LOSARTAN-HCTZ 50-12.5 MG 1 EACH TAB PO SCH (08:44)
[2016-08-06] MEDS: BENZONATATE 100 MG CAP PO SCH ×2 (08:44→15:59)
[2016-08-06] MEDS: IPRATROPIUM-ALBUTEROL 3 ML NEB INHALATION SCH ×3 (09:21→16:35)
[2016-08-06] MEDS ORDERED: LORazepam 1 MG TAB PO PRN (11:35)
[2016-08-06] MEDS ORDERED: VENLAFAXINE HCL ER 75 MG CAP PO SCH (11:45)
[2016-08-06] MEDS: AZITHROMYCIN 500 MG TAB PO SCH (12:10)
--- NOTE | 2016-08-06 14:13 | P.DS ---
Providers Date of admission: 08/04/16 16:42 Expected date of discharge: 08/06/16 Attending physician: Yaritza Bronson Primary care physician: Anival Gann [facility] Course: ThIs a pleasant 46-year-old lady patient of Dr. Gann. She has underlying history of asthma, hypertension migraines who presented to emergency room secondary to nausea vomiting and diarrhea for the past 6 days. It looks likefamily members also have the same problem, patient has diffuse muscle aches abdominal pain low-grade fever. She also has been wheezing with shortness of breath and is currently a smoker. Patient denies any urinary frequency no dysuria no hematuria, no recent falls no lightheadedness, patient has mild headache, she also has a generalized rash and weakness Emergency roomC was 5.9 creatinine 0.89 the rest of the liver function tests is normal platelet count is low at 106, urinalysis shows 4 WBC and 9 RBC castro tones 4+ gravity 1.024 and ntBNP of 81 ma influenza a and B PCR negative She was admitted secondary to dehydration and asthma COPD exacerbation 08/05: Patient is extremely anxious currently she is mentally distress, hasn't slept since yesterday, she has incessant cough no hemoptysis, torso rash is getting better however more rash showed up in the neck and anterior chest. She tussionex started Vistaril increased decrease Solu-Medrol, maintained nebulized treatments and Tessalon Perles 08/06: Blood culture showing no growth at 24 hours. Urine culture is showing contamination. Sputum culture is in process. Plan was to decrease Solu-Medrol today and start prednisone in the morning the patient has a need to leave today. She has had no further diarrhea. Measles and [place] measles also ruled out. Rash is improved. Patient will be discharged home today in stable condition. Discharge diagnoses: 1. Acute moderate persistent asthma and COPD exacerbation 2. Hypertension 3. Ketonuria with acute dehydration secondary to viral syndrome presenting with diarrhea 4. viral exanthem 5. mild thrombocytopenia. 4. Tobacco dependency 5. Chronic neck pain secondary to prior head concussion, no meningeal symptoms 6. Insomnia and anxiety, underlying history of generalized anxiety disorder, bipolar depression Discharge plan: Return home Impression and plan of care have been directed as dictated by the signing physician. Mitra Shay nurse practitioner acting as scribe for signing physician. Cc: Dr. Anival Gann. Patient Condition at Discharge: Good Plan - Discharge Summary New Discharge Prescriptions: Benzonatate [Tessalon Perles] 200 mg PO TID #30 cap Cephalexin [Keflex] 500 mg PO Q8HR #21 cap Ipratropium-Albuterol Nebulize [Duoneb 0.5 mg-3 mg/3 ml Soln] 3 ml INHALATION RT -QID #120 ampul.neb LORazepam [Ativan] 0.5 mg PO Q8HR PRN #20 tab PRN Reason: Anxiety Melatonin 10 mg PO HS #30 tab.rapdis Mometasone Inhalr 220 Mcg/Puff [Asmanex] 2 puff INHALATION BID #1 inhaler Venlafaxine HCl ER [Effexor XR] 75 mg PO DAILY #30 cap.er.24h predniSONE 0 mg PO DIRECTED #30 tab Discharge Medication List Albuterol Inhaler [Ventolin Hfa Inhaler] 2 puff INHALATION RT-QID PRN 08/04/16 [ History] Furosemide [Lasix] 20 mg PO DAILY PRN 08/04/16 [History] Losartan/Hydrochlorothiazide [Losartan-Hctz 50-12.5 mg Tab] 1 tab PO DAILY 08/04 [History] cloNIDine HCL [Catapres] 0.1 mg PO HS 08/04/16 [History] Benzonatate [Tessalon Perles] 200 mg PO TID #30 cap 08/06/16 [Rx] Cephalexin [Keflex] 500 mg PO Q8HR #21 cap 08/06/16 [Rx] Ipratropium-Albuterol Nebulize [Duoneb 0.5 mg-3 mg/3 ml Soln] 3 ml INHALATION RT -QID #120 ampul.neb 08/06/16 [Rx] LORazepam [Ativan] 0.5 mg PO Q8HR PRN #20 tab 08/06/16 [Rx] Melatonin 10 mg PO HS #30 tab.rapdis 08/06/16 [Rx] Mometasone Inhalr 220 Mcg/Puff [Asmanex] 2 puff INHALATION BID #1 inhaler [Rx] Venlafaxine HCl ER [Effexor XR] 75 mg PO DAILY #30 cap.er.24h 08/06/16 [Rx] predniSONE 0 mg PO DIRECTED #30 tab 08/06/16 [Rx] Follow up Appointment(s)/Referral(s): Anival Gann DO [Primary Care Provider] - 3 Days
[2016-08-06 16:20] VITALS: BP 157/92; RESP 20; TEMP 98.3
[2016-08-06 16:50] VITALS: PULSE 96
[2016-08-06] MEDS ORDERED: MONTELUKAST 10 MG TAB PO SCH (21:00)
[2016-08-06] MEDS ORDERED: methylPREDNISolone SOD SUCCI 40 MG/ML 1 ML VIAL IV SCH (21:00)
[2016-08-07] MEDS ORDERED: predniSONE 20 MG TAB PO SCH (09:00)
== END 2016-08-06 17:22 | disposition home or self-care (01) | DRG 191 ==
LOC: EC 07:29 → 3SUR 11:37 → OBSVTOIN 16:42 → 6PED 08-05 21:08
PROVIDERS: ADMIT Family Medicine; ATTEND Family Medicine
DX: J44.1 Chronic obstructive pulmonary disease with (acute) exacerbation (principal); J45.41 Moderate persistent asthma with (acute) exacerbation; D69.6 Thrombocytopenia, unspecified; E86.0 Dehydration; F17.200 Nicotine dependence, unspecified, uncomplicated; F41.1 Generalized anxiety disorder; G47.00 Insomnia, unspecified; G89.29 Other chronic pain; F32.9 Major depressive disorder, single episode, unspecified; M54.2 Cervicalgia; I10 Essential (primary) hypertension; G43.909 Migraine, unspecified, not intractable, without status migrainosus; B09 Unspecified viral infection characterized by skin and mucous membrane lesions; B34.9 Viral infection, unspecified; Z88.8 Allergy status to other drugs, medicaments and biological substances; Z88.1 Allergy status to other antibiotic agents; Z91.040 Latex allergy status
CPT/HCPCS: 36415; 71020; 80053; 81001; 82550; 82553; 83605; 83880; 84484; 85025; 85610; 85730; 87040; 87070; 87086; 87205; 87502; 93005; 94640; 96361; 96365; 96367; 96375; 99285

== ENCOUNTER 2017-10-25 08:05 | Inpatient (IN) | payer OTHER ==
[2017-10-25] MEDS ORDERED: LORazepam 2 MG/ML INJ IV STA ×2 (08:27→12:19)
[2017-10-25] MEDS ORDERED: DILTIAZEM DRIP BOLUS FROM BAG 1 MG SOLN IV ONE ×2 (08:27→12:16)
--- NOTE | 2017-10-25 08:33 | ED ---
General Adult HPI - General Chief complaint: Chest Pain Stated complaint: Chest Pain Time Seen by Provider: 10/25/17 08:20 Source: patient, RN notes reviewed Mode of arrival: wheelchair Limitations: no limitations - History of Present Illness Initial comments: Patient is a pleasant 47-year-old female presenting to the emergency department with complaints of chest discomfort. Patient has a known history of atrial fibrillation and left bundle branch block. Patient states she chronically is in atrial fibrillation. Patient states she cannot be on anticoagulation secondary to having been blood normally. Patient states she has PVC spoken with her doctor regarding this. Patient states her heart rate was 144 when she left home today. Patient states chest discomfort has been intermittent and feels tight. Patient also has associated dyspnea. Patient does admit to feeling lightheaded and anxious. - Related Data Home Medications Medication Instructions Recorded Confirmed cloNIDine HCL [Catapres] 0.1 mg PO HS 08/04/16 10/25/17 Furosemide [Lasix] 40 mg PO DAILY 10/25/17 10/25/17 Allergies Allergy/AdvReac Type Severity Reaction Status Date / Time latex Allergy Dyspnea/Rbet Verified 10/25/17 08:48 h/Hives morphine Allergy Unknown Verified 10/25/17 08:48 ofloxacin [From Floxin] Allergy Swelling Verified 10/25/17 08:48 of Ear Drums Sulfa (Sulfonamide Allergy Swelling Verified 10/25/17 08:48 Antibiotics) sulfamethoxazole Allergy Swelling Verified 10/25/17 08:48 [From Bactrim] trimethoprim [From Bactrim] Allergy Swelling Verified 10/25/17 08:48 nifedipine [From Procardia] AdvReac Increased Verified 10/25/17 08:48 Blood Pressure olmesartan medoxomil AdvReac Decreased Verified 10/25/17 08:48 [From Benicar] Heart Rate berries Allergy Rash/Hives Uncoded 10/25/17 08:09 nuts Allergy Rash/Hives Uncoded 10/25/17 08:09 Review of Systems ROS Statement: Those systems with pertinent positive or pertinent negative responses have been documented in the HPI. ROS Other: All systems not noted in ROS Statement are negative. Constitutional: Denies: fever Eyes: Denies: eye pain ENT: Denies: ear pain Respiratory: Reports: dyspnea. Denies: cough Cardiovascular: Reports: chest pain, palpitations Endocrine: Denies: fatigue Gastrointestinal: Denies: vomiting Genitourinary: Denies: dysuria Musculoskeletal: Denies: back pain Skin: Denies: rash Neurological: Denies: headache Psychiatric: Reports: anxiety Past Medical History Past Medical History: Asthma, Hypertension Additional Past Medical History / Comment(s): migraines History of Any Multi-Drug Resistant Organisms: None Reported Past Surgical History: Cholecystectomy, Ear Surgery, Hysterectomy, Tubal Ligation Additional Past Surgical History / Comment(s): carpal tunnel, cone biopsy, core biopsy Past Psychological History: Anxiety Smoking Status: Current every day smoker Past Alcohol Use History: None Reported Past Drug Use History: None Reported - Past Family History Father Family Medical History: No Reported History General Exam Limitations: no limitations General appearance: alert, in no apparent distress, anxious Head exam: Present: atraumatic Eye exam: Present: normal appearance, PERRL ENT exam: Present: normal oropharynx Neck exam: Present: normal inspection Respiratory exam: Present: normal lung sounds bilaterally Cardiovascular Exam: Present: irregular rhythm Expanded Peripheral pulses: 2+: Radial (R), Radial (L), Dorsalis Pedis (R), Dorsalis Pedis (L) GI/Abdominal exam: Present: soft. Absent: tenderness Extremities exam: Present: normal inspection. Absent: pedal edema, calf tenderness Neurological exam: Present: alert Psychiatric exam: Present: anxious Skin exam: Present: normal color Course Vital Signs 10/25/17 10/25/17 10/25/17 08:07 09:29 10:00 Temperature 97.7 F Pulse Rate 79 148 H 138 H Respiratory 20 18 16 Rate Blood Pressure 133/103 131/67 132/74 O2 Sat by Pulse 99 94 L 97 Oximetry EKG Findings - EKG Comments: EKG Findings:: A. fib with RVR, rate 162. QRS 132. QT 320. QTc 525. Right axis. Left bundle branch block. Nonspecific ST-T. Medical Decision Making - Medical Decision Making Patient reevaluated and somewhat improved. Heart rate between 1:30 and 140. Patient does feel better. Patient and family updated on results and plan. Case was discussed in detail with Dr. Coulter, who will admit for Dr. Gann. He does request CTA and heparin. - Lab Data Result diagrams: 10/25/17 08:33 10/25/17 08:33 Lab Results 10/25/17 10/25/1710/25/18 Range/Units 08:33 08:33 08:33 WBC (3.8-10.6) k/uL RBC (3.80-5.40) m/uL Hgb (11.4-16.0) gm/dL Hct (34.0-46.0) % MCV (80.0-100.0) fL MCH (25.0-35.0) pg MCHC (31.0-37.0) g/dL RDW (11.5-15.5) % Plt Count (150-450) k/uL Neutrophils % % Lymphocytes % % Monocytes % % Eosinophils % % Basophils % % Neutrophils # (1.3-7.7) k/uL Lymphocytes # (1.0-4.8) k/uL Monocytes # (0-1.0) k/uL Eosinophils # (0-0.7) k/uL Basophils # (0-0.2) k/uL PT (9.0-12.0) sec INR (<1.2) APTT (22.0-30.0) sec Sodium 139 (137-145) mmol/L Potassium 4.8 (3.5-5.1) mmol/L Chloride 105 (98-107) mmol/L Carbon Dioxide 25 (22-30) mmol/L Anion Gap 9 mmol/L BUN 7 (7-17) mg/dL Creatinine 0.80 (0.52-1.04) mg/dL Est GFR (CKD-EPI)AfAm >90 (>60 ml/min/1.73 sqM) Est GFR (CKD-EPI)NonAf 90 (>60 ml/min/1.73 sqM) Glucose 125 H (74-99) mg/dL Calcium 10.4 H (8.4-10.2) mg/dL Magnesium 1.9 (1.6-2.3) mg/dL Total Bilirubin 0.8 (0.2-1.3) mg/dL AST 24 (14-36) U/L ALT 30 (9-52) U/L Alkaline Phosphatase 93 (38-126) U/L Total Creatine Kinase 101 (30-135) U/L CK-MB (CK-2) 0.6 (0.0-2.4) ng/mL CK-MB (CK-2) Rel Index 0.6 Troponin I <0.012 (0.000-0.034) ng/mL NT-Pro-B Natriuret Pep 92 pg/mL Total Protein 8.0 (6.3-8.2) g/dL Albumin 4.7 (3.5-5.0) g/dL TSH 2.840 (0.465-4.680) mIU/L Free T4 1.09 (0.78-2.19) ng/dL Free T3 pg/mL 3.3 (2.8-5.3) pg/ml Urine Color Urine Appearance (Clear) Urine pH (5.0-8.0) Ur Specific Anderson (1.001-1.035) Urine Protein (Negative) Urine Glucose (UA) (Negative) Urine Ketones (Negative) Urine Blood (Negative) Urine Nitrite (Negative) Urine Bilirubin (Negative) Urine Urobilinogen (<2.0) mg/dL Ur Leukocyte Esterase (Negative) Urine Opiates Screen (NotDetected) Ur Oxycodone Screen (NotDetected) Urine Methadone Screen (NotDetected) Ur Propoxyphene Screen (NotDetected) Ur Barbiturates Screen (NotDetected) U Tricyclic Antidepress (NotDetected) Ur Phencyclidine Scrn (NotDetected) Ur Amphetamines Screen (NotDetected) U Methamphetamines Scrn (NotDetected) U Benzodiazepines Scrn (NotDetected) Urine Cocaine Screen (NotDetected) U Marijuana (THC) Screen (NotDetected) 10/25/17 10/25/17 10/25/17 Range/Units 08:33 08:33 09:15 WBC 15.7 H (3.8-10.6) k/uL RBC 5.29 (3.80-5.40) m/uL Hgb 16.1 H (11.4-16.0) gm/dL Hct 48.2 H (34.0-46.0) % MCV 91.0 (80.0-100.0) fL MCH 30.4 (25.0-35.0) pg MCHC 33.4 (31.0-37.0) g/dL RDW 13.0 (11.5-15.5) % Plt Count 253 (150-450) k/uL Neutrophils % 69 % Lymphocytes % 25 % Monocytes % 3 % Eosinophils % 2 % Basophils % 0 % Neutrophils # 10.9 H (1.3-7.7) k/uL Lymphocytes # 3.9 (1.0-4.8) k/uL Monocytes # 0.5 (0-1.0) k/uL Eosinophils # 0.2 (0-0.7) k/uL Basophils # 0.0 (0-0.2) k/uL PT 9.9 (9.0-12.0) sec INR 1.0 (<1.2) APTT 27.9 (22.0-30.0) sec Sodium (137-145) mmol/L Potassium (3.5-5.1) mmol/L Chloride (98-107) mmol/L Carbon Dioxide (22-30) mmol/L Anion Gap mmol/L BUN (7-17) mg/dL Creatinine (0.52-1.04) mg/dL Est GFR (CKD-EPI)AfAm (>60 ml/min/1.73 sqM) Est GFR (CKD-EPI)NonAf (>60 ml/min/1.73 sqM) Glucose (74-99) mg/dL Calcium (8.4-10.2) mg/dL Magnesium (1.6-2.3) mg/dL Total Bilirubin (0.2-1.3) mg/dL AST (14-36) U/L ALT (9-52) U/L Alkaline Phosphatase (38-126) U/L Total Creatine Kinase (30-135) U/L CK-MB (CK-2) (0.0-2.4) ng/mL CK-MB (CK-2) Rel Index Troponin I (0.000-0.034) ng/mL NT-Pro-B Natriuret Pep pg/mL Total Protein (6.3-8.2) g/dL Albumin (3.5-5.0) g/dL TSH (0.465-4.680) mIU/L Free T4 (0.78-2.19) ng/dL Free T3 pg/mL (2.8-5.3) pg/ml Urine Color Colorless Urine Appearance Clear (Clear) Urine pH 7.5 (5.0-8.0) Ur Specific Anderson 1.002 (1.001-1.035) Urine Protein Negative (Negative) Urine Glucose (UA) Negative (Negative) Urine Ketones Negative (Negative) Urine Blood Negative (Negative) Urine Nitrite Negative (Negative) Urine Bilirubin Negative (Negative) Urine Urobilinogen <2.0 (<2.0) mg/dL Ur Leukocyte Esterase Negative (Negative) Urine Opiates Screen Not Detected (NotDetected) Ur Oxycodone Screen Not Detected (NotDetected) Urine Methadone Screen Not Detected (NotDetected) Ur Propoxyphene Screen Not Detected (NotDetected) Ur Barbiturates Screen Not Detected (NotDetected) U Tricyclic Antidepress Not Detected (NotDetected) Ur Phencyclidine Scrn Not Detected (NotDetected) Ur Amphetamines Screen Not Detected (NotDetected) U Methamphetamines Scrn Not Detected (NotDetected) U Benzodiazepines Scrn Not Detected (NotDetected) Urine Cocaine Screen Not Detected (NotDetected) U Marijuana (THC) Screen Detected H (NotDetected) Critical Care Time Critical Care Time: Yes Total Critical Care Time: 32 Disposition Clinical Impression: Atrial fibrillation with RVR Disposition: ADMITTED IP TO THIS HOSP Is patient prescribed a controlled substance at d/c from ED?: No Referrals: Anival Gann DO [Primary Care Provider] - 1-2 days Decision Time: 10:41
[2017-10-25 08:48] LABS: Basophils % (A) 0 %; Eosinophils # (A) 0.2 k/uL (0-0.7); Eosinophils % (A) 2 %; HCT 48.2 % (34.0-46.0); HGB 16.1 gm/dL (11.4-16.0); Lymphocytes # (A) 3.9 k/uL (1.0-4.8); Lymphocytes % (A) 25 %; MCH 30.4 pg (25.0-35.0); MCHC 33.4 g/dL (31.0-37.0); Mean Platelet Volume 8.1; Monocytes # (A) 0.5 k/uL (0-1.0); Monocytes % (A) 3 %; Neutrophils # (A) 10.9 k/uL (1.3-7.7); Neutrophils % (A) 69 %; Platelet Count 253 k/uL (150-450); RBC 5.29 m/uL (3.80-5.40); WBC 15.7 k/uL (3.8-10.6)
[2017-10-25] MEDS: DILTIAZEM 50 MG in SODIUM CHLORIDE 0.9% 40 ML IV SCH ×3 (08:53→21:21)
[2017-10-25 08:57] LABS: ALT 30 U/L (9-52); AST 24 U/L (14-36); Albumin 4.7 g/dL (3.5-5.0); Alkaline Phosphatase 93 U/L (38-126); Anion Gap 9 mmol/L; Blood Urea Nitrogen 7 mg/dL (7-17); Calcium 10.4 mg/dL (8.4-10.2); Carbon Dioxide 25 mmol/L (22-30); Chloride 105 mmol/L (98-107); Glucose 125 mg/dL (74-99); Magnesium 1.9 mg/dL (1.6-2.3); Potassium 4.8 mmol/L (3.5-5.1); Sodium 139 mmol/L (137-145); Total Bilirubin 0.8 mg/dL (0.2-1.3)
[2017-10-25 09:13] LABS: Creatine Kinase 101 U/L (30-135)
[2017-10-25 09:16] LABS: T4, Free (Free Thyroxine) 1.09 ng/dL (0.78-2.19)
[2017-10-25 09:25] LABS: Creatine Kinase MB 0.6 ng/mL (0.0-2.4); Troponin I <0.012 ng/mL (0.000-0.034)
--- NOTE | 2017-10-25 09:26 | XR ---
EXAMINATION TYPE: XR chest 2V DATE OF EXAM: 10/25/2017 COMPARISON: Chest x-ray August 04, 2016 HISTORY: Dysrhythmia per order. Dizziness and hypertension. TECHNIQUE: Frontal and lateral views of the chest are obtained. FINDINGS: There is no focal air space opacity, pleural effusion, or pneumothorax seen. The cardiac silhouette size is within normal limits. The osseous structures are intact. IMPRESSION: No acute cardiopulmonary process. No significant change from prior.
[2017-10-25 09:35] LABS: Appearance,Urine Clear (Clear); Bilirubin,Urine Negative (Negative); Blood,Urine Negative (Negative); Color,Urine Colorless; Glucose,Urine (UA) Negative (Negative); Ketones,Urine Negative (Negative); Leukocyte Esterase,Urine Negative (Negative); Nitrite,Urine Negative (Negative); PH, Urine 7.5 (5.0-8.0); Protein,Urine Negative (Negative); Specific Gravity,Urine 1.002 (1.001-1.035); Urobilinogen,Urine <2.0 mg/dL (<2.0)
[2017-10-25 09:45] LABS: Partial Thromboplastin Time 27.9 sec (22.0-30.0); Prothrombin Time 9.9 sec (9.0-12.0)
[2017-10-25 09:58] LABS: Amphetamine Screen,Urine Not Detected (NotDetected); Barbiturate Screen,Urine Not Detected (NotDetected); Benzodiazepines Screen,Urine Not Detected (NotDetected); Cocaine Screen,Urine Not Detected (NotDetected); Methadone Screen, Urine Not Detected (NotDetected); Opiate Screen,Urine Not Detected (NotDetected); Oxycodone Screen, Urine Not Detected (NotDetected); Phencyclidine Screen,Urine Not Detected (NotDetected); Tricyclic Antidepressant,Urine Not Detected (NotDetected); Urn Cannabinoid Scrn Detected (NotDetected)
[2017-10-25] MEDS ORDERED: HEPARIN SODIUM,PORCINE 5,000 UNIT/ML 1 ML VIAL IV PRN (10:41)
[2017-10-25] MEDS ORDERED: HEPARIN SODIUM,PORCINE 5,000 UNIT/ML 1 ML VIAL IV ONE (10:41)
[2017-10-25] MEDS ORDERED: ASPIRIN 81 MG PO STA (10:41)
[2017-10-25] MEDS ORDERED: NITROGLYCERIN SL TABS 0.4 MG TAB SUBLINGUAL PRN (10:41)
--- NOTE | 2017-10-25 11:30 | CT ---
EXAMINATION TYPE: CT angio chest DATE OF EXAM: 10/25/2017 COMPARISON: NONE HISTORY: Shortness of breath and chest pain CT DLP: 494.5 mGycm. Automated Exposure Control for Dose Reduction was Utilized. CONTRAST: CTA scan of the thorax is performed with IV Contrast, patient injected with 100 mL of Isovue 370, pul monary embolism protocol. MIP Images are created on CT scanner and reviewed. FINDINGS: LUNGS: There are very vague geographic scattered groundglass opacities predominating within the poste rior superior segment of the left lower lobe. Small paraseptal bleb is seen at the interlobar fissure on series 5 image 85. Additional bleb is seen within the right upper lobe on series 5 image 66. The lungs are grossly clear, there is no concerning parenchymal mass or nodule identified. There is no pleural effusion or pneumothorax seen. The tracheobronchial tree is patent. There is reflux of contr ast into the hepatic veins and inferior vena cava. MEDIASTINUM: There is satisfactory enhancement of the pulmonary artery and its branches, there is no CT evidence for pulmonary embolism. There are no greater than 1 cm hilar or mediastinal lymph nodes. No cardiomegaly or pericardial effusion is seen. OTHER: Left adrenal gland nodule contains macroscopic fat and may relate to benign lipid rich adenoma or myelolipoma measuring approximately 1.3 cm. Gallbladder surgically absent. Mild multilevel degene rative changes of the thoracic spine are noted. IMPRESSION: 1. No evidence of pulmonary embolism. 2. Scattered geographic groundglass opacities in combination with reflux of contrast into the hepatic veins may suggest a degree of cardiogenic fluid overload. Correlation with echocardiogram could be p erformed. Alternatively the nonspecific groundglass opacities that predominate within the superior se gment of the left upper lobe could relate to pneumonitis given the lack of interseptal lobular thicke suleman to suggest further interstitial edema, lack of pleural effusions, and absence of cardiomegaly.
[2017-10-25] MEDS: HEPARIN SOD,PORK IN 0.45% NACL 25,000 UNIT in 0.45% NACL 1 500ML.BAG IV SCH (11:56)
[2017-10-25] MEDS ORDERED: SODIUM CHLORIDE 0.9% 1,000 ML IV STA (12:23)
--- NOTE | 2017-10-25 14:36 | P.HPIM ---
History of Present Illness H&P Date: 10/25/17 Chief Complaint: Dizziness This is a 47-year-old female patient of Dr. Gann with past medical history of mild intermittent asthma, hypertension, migraines. She states that she has not seen Dr. Gann for the past year and a half. She has history of sudden onset at 3 AM yesterday morning of dizziness. She felt her heart skipping but she states this happens all the time and she's been diagnosed with a left bundle branch block. She states she has not been taking any of her home medications that she cannot afford her medications. She states she has been very stressed out because she is moving, she has a new grandchild and her is looking at changing jobs. She also states that she had a TIA in November 2007 has not been able to work since that time. She states she has had multiple TIAs. She denies previous diagnosis of atrial fibrillation. She has been a smoker since 11 years of age and also is using marijuana 3 times daily. Patient came into [facility] emergency center for evaluation and was found to be in atrial fibrillation running in the 140s to 160s. White count was 15.7, hemoglobin 16.1. Troponin was negative on one drop. TSH 2.840, electrolytes were within normal limits. Renal function and liver function within normal limits. Blood sugar was 125. ProBNP 92. Urine drug screen was positive for marijuana. Urinalysis was clear nitrate and leukoesterase negative. chest x-ray shows no acute cardiopulmonary process. CTA of the chest showed no pulmonary edema. Scattered 2 graft that ground glass opacities and reflux of contrast in the hepatic veins to suggest cardiogenic fluid overload. Correlate for echocardiogram. Groundglass opacities within the superior segment of the left upper lobe related to pneumonitis given lack of interseptal thickening to suggest further interstitial edema, lack of pleural effusions and absence of cardiomegaly. Patient was started on Cardizem drip and heparin drip and admitted to the selective care unit with cardiology consult. During evaluation, patient is very angry and somewhat aggressive and then burst into tears stating I don't want to . Patient has been reassured that she is not going to and that what she has is treatable. When discussing blood thinners with her, patient states that she has been told that she has been blood and when she cuts herself she bleeds for hours. Review of Systems All systems: negative Constitutional: Reports fatigue, Denies chills, Denies fever Eyes: denies blurred vision, denies pain Ears, nose, mouth and throat: Reports vertigo, Denies headache, Denies sore throat Cardiovascular: Reports chest pain, Reports lightheadedness, Reports palpitations, Reports rapid heart beat, Denies decreased exercise tolerance, Denies dyspnea on exertion, Denies leg edema, Denies shortness of breath, Denies syncope Respiratory: Denies cough, Denies cough with sputum, Denies dyspnea, Denies excessive sputum, Denies hemoptysis, Denies home oxygen, Denies wheezing Gastrointestinal: Denies abdominal pain, Denies diarrhea, Denies nausea, Denies vomiting Genitourinary: Denies dysuria, Denies hematuria Musculoskeletal: Denies myalgias Integumentary: Denies pruritus, Denies rash Neurological: Denies numbness, Denies weakness Psychiatric: Reports anxiety, Denies depression Endocrine: Denies fatigue, Denies weight change Past Medical History Past Medical History: Asthma, Hypertension Additional Past Medical History / Comment(s): migraines History of Any Multi-Drug Resistant Organisms: None Reported Past Surgical History: Cholecystectomy, Ear Surgery, Hysterectomy, Tubal Ligation Additional Past Surgical History / Comment(s): carpal tunnel, cone biopsy, core biopsy Past Psychological History: Anxiety Smoking Status: Current every day smoker Past Alcohol Use History: None Reported Additional Past Alcohol Use History / Comment(s): Patient is a smoker of less than a pack per day since she was 11 years of age. She also smokes marijuana 3 times per day. She denies any alcohol use or any other street drug use. Past Drug Use History: None Reported - Past Family History Father Family Medical History: No Reported History Additional Family Medical History / Comment(s): Father is alive at age 69 with history of hypertension. Mother Additional Family Medical History / Comment(s): Mother is alive at age 65 with history of rheumatoid arthritis. Sister(s) Additional Family Medical History / Comment(s): Patient has one sister that was "born crippled.". Patient has 3 children ages 28, 23 and 20 with no major medical problems. Medications and Allergies Home Medications Medication Instructions Recorded Confirmed Type cloNIDine HCL [Catapres] 0.1 mg PO HS 08/04/16 10/25/17 History Furosemide [Lasix] 40 mg PO DAILY 10/25/17 10/25/17 History Allergies Allergy/AdvReac Type Severity Reaction Status Date / Time latex Allergy Dyspnea/Bret Verified 10/25/17 08:48 h/Hives morphine Allergy Unknown Verified 10/25/17 08:48 ofloxacin [From Floxin] Allergy Swelling Verified 10/25/17 08:48 of Ear Drums Sulfa (Sulfonamide Allergy Swelling Verified 10/25/17 08:48 Antibiotics) sulfamethoxazole Allergy Swelling Verified 10/25/17 08:48 [From Bactrim] trimethoprim [From Bactrim] Allergy Swelling Verified 10/25/17 08:48 nifedipine [From Procardia] AdvReac Increased Verified 10/25/17 08:48 Blood Pressure olmesartan medoxomil AdvReac Decreased Verified 10/25/17 08:48 [From Benicar] Heart Rate berries Allergy Rash/Hives Uncoded 10/25/17 08:09 nuts Allergy Rash/Hives Uncoded 10/25/17 08:09 Physical Exam Vitals: Vital Signs Temp Pulse Resp BP Pulse Ox 10/25/17 11:00 132 H 18 126/92 97 10/25/17 10:00 138 H 16 132/74 97 10/25/17 09:29 148 H 18 131/67 94 L 10/25/17 08:07 97.7 F 79 20 133/103 99 Intake and Output 10/24/17 10/25/17 10/25/17 22:59 06:59 14:59 Intake Total 32.583 Balance 32.583 Intake: Intake, IV Titration 32.583 Amount Diltiazem 50 mg In Sodium 32.583 Chloride 0.9% 40 ml @ 15 MG/HR 15 mls/hr IV . Q3H20M [facility] Rx#:[id number] Other: Weight 106.594 kg Gen: This is an obese 47-year-old female. She is resting on the stretcher and appears to be in no respiratory distress. No acute distress is noted. HEENT: Head is atraumatic, normocephalic. Pupils equal, round. Sclerae is anicteric. NECK: Supple. No JVD. No lymphadenopathy. No thyromegaly. LUNGS: Clear to auscultation. No wheezes or rhonchi. No intercostal retractions. HEART: Regular rate and rhythm. No murmur. ABDOMEN: Soft. Bowel sounds are present. No masses. No tenderness. EXTREMITIES: No pedal edema. No calf tenderness. NEUROLOGICAL: Patient is awake, alert and oriented x3. Cranial nerves 2 through 12 are grossly intact. Results CBC & Chem 7: 10/25/17 08:33 10/25/17 08:33 Labs: Abnormal Lab Results - Last 24 Hours (Table) 10/25/17 10/25/17 10/25/17 Range/Units 08:33 08:33 09:15 WBC 15.7 H (3.8-10.6) k/uL Hgb 16.1 H (11.4-16.0) gm/dL Hct 48.2 H (34.0-46.0) % Neutrophils # 10.9 H (1.3-7.7) k/uL Glucose 125 H (74-99) mg/dL Calcium 10.4 H (8.4-10.2) mg/dL U Marijuana (THC) Screen Detected H (NotDetected) Thrombosis Risk Factor Assmnt - DVT/VTE Prophylaxis DVT/VTE Prophylaxis: Pharmacologic Prophylaxis ordered Assessment and Plan Plan: 1. New onset atrial fibrillation with rapid ventricular response, paroxysmal atrial fibrillation. Patient started on Cardizem drip and heparin drip. Cardiology consult requested. 2. Chest pain most likely secondary to atrial fibrillation. Patient was started on aspirin 325 mg, Nitrostat, heparin drip. Serial cardiac enzymes ordered. 3. Mild intermittent asthma, stable patient has not been on medication. 4. Hypertension, patient has not been on medication. 5. History of migraine headaches, stable. 6. Tobacco use and dependence. Nicotine patch. 7. Regular marijuana use, stable. 8. DVT prophylaxis, heparin. 9. GI prophylaxis. Pepcid. Patient will be admitted to the hospital for a minimum of 2 night stay. Discharge plan: return home Impression and plan of care have been directed as dictated by the signing physician. Mitra Shay nurse practitioner acting as scribe for signing physician.
[2017-10-25] MEDS: NICOTINE 14MG/24HR PATCH TRANSDERM SCH (15:51)
[2017-10-25 16:10] LABS: Creatine Kinase 98 U/L (30-135)
[2017-10-25 16:22] LABS: Creatine Kinase MB 0.9 ng/mL (0.0-2.4); Troponin I <0.012 ng/mL (0.000-0.034)
[2017-10-25 17:00] VITALS: BMI 34.7
--- NOTE | 2017-10-25 18:43 | P.CRDCN ---
History of Present Illness Consult date: 10/25/17 Chief complaint: Heart racing and fluttering History of present illness: This is a 47-year-old female patient with a past medical history significant for atrial fibrillation (likely paroxysmal), hypertension, and history of asthma, presented to the emergency room complaining of heart racing and fluttering. The patient was seen in our office last time about 3 years ago according to her. Since then she had no follow-up and she has not been taking any of her medication because she could not afford them and because of insurance issues. Currently she is under a lot of stress related to her family. She was in her usual state of health until yesterday when she started experiencing a sudden onset of heart racing and fluttering in the chest associated with dizziness and lightheadedness and without syncope but she felt very weak. No chest pain and no chest discomfort. The patient decided to come to the emergency room where she was found to be in atrial fibrillation/atrial flutter with a heart rate around 160 beats per minutes. She was given Cardizem IV 10 mg and subsequently 5 mg bolus and then she was started on Cardizem and drip. She has been maintaining a heart rate around 130 bpm when she was seen and examined at the emergency room. She stated that she was taking oral anticoagulation as well and she stopped taking the medication because she couldn 't afford this. The EKG showed atrial flutter with RVR. The TSH 2.840, electrolytes were within normal limits. Renal function and liver function within normal limits. Urine drug screen was positive for marijuana. The chest x-ray shows no acute cardiopulmonary process. CTA of the chest showed no pulmonary edema. Beside the Cardizem IV the patient was also started on heparin IV. Past Medical History Past Medical History: Asthma, Hypertension Additional Past Medical History / Comment(s): migraines History of Any Multi-Drug Resistant Organisms: None Reported Past Surgical History: Cholecystectomy, Ear Surgery, Hysterectomy, Tubal Ligation Additional Past Surgical History / Comment(s): carpal tunnel, cone biopsy, core biopsy Past Anesthesia/Blood Transfusion Reactions: No Reported Reaction Past Psychological History: Anxiety Smoking Status: Current every day smoker Past Alcohol Use History: None Reported Additional Past Alcohol Use History / Comment(s): Patient is a smoker of less than a pack per day since she was 11 years of age. She also smokes marijuana 3 times per day. She denies any alcohol use or any other street drug use. Past Drug Use History: None Reported - Past Family History Father Family Medical History: No Reported History Additional Family Medical History / Comment(s): Father is alive at age 69 with history of hypertension. Mother Additional Family Medical History / Comment(s): Mother is alive at age 65 with history of rheumatoid arthritis. Sister(s) Additional Family Medical History / Comment(s): Patient has one sister that was "born crippled.". Patient has 3 children ages 28, 23 and 20 with no major medical problems. Medications and Allergies Home Medications Medication Instructions Recorded Confirmed Type cloNIDine HCL [Catapres] 0.1 mg PO HS 08/04/16 10/25/17 History Furosemide [Lasix] 40 mg PO DAILY 10/25/17 10/25/17 History Allergies Allergy/AdvReac Type Severity Reaction Status Date / Time latex Allergy Dyspnea/Bret Verified 10/25/17 08:48 h/Hives morphine Allergy Unknown Verified 10/25/17 08:48 ofloxacin [From Floxin] Allergy Swelling Verified 10/25/17 08:48 of Ear Drums Sulfa (Sulfonamide Allergy Swelling Verified 10/25/17 08:48 Antibiotics) sulfamethoxazole Allergy Swelling Verified 10/25/17 08:48 [From Bactrim] trimethoprim [From Bactrim] Allergy Swelling Verified 10/25/17 08:48 nifedipine [From Procardia] AdvReac Increased Verified 10/25/17 08:48 Blood Pressure olmesartan medoxomil AdvReac Decreased Verified 10/25/17 08:48 [From Benicar] Heart Rate berries Allergy Rash/Hives Uncoded 10/25/17 08:09 nuts Allergy Rash/Hives Uncoded 10/25/17 08:09 Physical Exam Vitals: Vital Signs Temp Pulse Pulse Resp BP BP Pulse Ox 10/25/17 16:00 97.0 F L 108 H 14 136/92 97 10/25/17 14:19 98.6 F 119 H 16 150/99 98 10/25/17 13:00 118 H 20 174/82 97 10/25/17 11:00 132 H 18 126/92 97 10/25/17 10:00 138 H 16 132/74 97 10/25/17 09:29 148 H 18 131/67 94 L 10/25/17 08:07 97.7 F 79 20 133/103 99 Intake and Output 10/25/17 10/25/17 10/25/17 06:59 14:59 22:59 Intake Total 50.000 Balance 50.000 Intake: Intake, IV Titration 50.000 Amount Diltiazem 50 mg In Sodium 50.000 Chloride 0.9% 40 ml @ 15 MG/HR 15 mls/hr IV . Q3H20M [facility] Rx#:[id number] Other: Weight 106.594 kg - Constitutional General appearance: no acute distress - Respiratory Respiratory: bilateral: CTA - Cardiovascular Rhythm: regular Heart sounds: normal: S1, S2 Results 10/25/17 08:33 10/25/17 08:33 Cardiac Enzymes 10/25/17 10/25/17 10/25/17 Range/Units 08:33 08:33 14:53 AST 24 (14-36) U/L CK-MB (CK-2) 0.6 0.9 (0.0-2.4) ng/mL Troponin I <0.012 <0.012 (0.000-0.034) ng/mL Coagulation 10/25/17 Range/Units 08:33 PT 9.9 (9.0-12.0) sec APTT 27.9 (22.0-30.0) sec CBC 10/25/17 Range/Units 08:33 WBC 15.7 H (3.8-10.6) k/uL RBC 5.29 (3.80-5.40) m/uL Hgb 16.1 H (11.4-16.0) gm/dL Hct 48.2 H (34.0-46.0) % Plt Count 253 (150-450) k/uL Comprehensive Metabolic Panel 10/25/17 Range/Units 08:33 Sodium 139 (137-145) mmol/L Potassium 4.8 (3.5-5.1) mmol/L Chloride 105 (98-107) mmol/L Carbon Dioxide 25 (22-30) mmol/L BUN 7 (7-17) mg/dL Creatinine 0.80 (0.52-1.04) mg/dL Glucose 125 H (74-99) mg/dL Calcium 10.4 H (8.4-10.2) mg/dL AST 24 (14-36) U/L ALT 30 (9-52) U/L Alkaline Phosphatase 93 (38-126) U/L Total Protein 8.0 (6.3-8.2) g/dL Albumin 4.7 (3.5-5.0) g/dL Current Medications Generic Name Dose Route Start Last Admin Trade Name Freq PRN Reason Stop Dose Admin Aspirin 325 mg 10/26/17 09:00 Aspirin PO DAILY [facility] Famotidine 20 mg 10/26/17 09:00 Pepcid PO DAILY [facility] Heparin Sodium (Porcine) 0 unit 10/25/17 10:41 Heparin IV Q6HR PRN Low PTT Protocol Diltiazem HCl 50 mg/ Sodium 50 mls @ 15 mls/hr 10/25/17 08:30 10/25/17 15:48 Chloride IV 15 mg/hr .Q3H20M [facility] 15 mls/hr Administration Protocol 15 MG/HR Heparin Sodium/Sodium Chloride 500 mls @ 19.99 mls/hr 10/25/17 10:45 11:56 25,000 unit/ Sodium Chloride IV Not Given .Q24H [facility] Protocol 9.38 UNITS/KG/HR Sodium Chloride 1,000 mls @ 100 mls/hr 10/25/17 12:23 10/25/17 12:25 Saline 0.9% IV 10/25/17 22:22 100 mls/hr .Q10H [facility] Administration Metoprolol Tartrate 25 mg 10/25/17 21:00 Lopressor PO BID [facility] Nicotine 1 patch 10/25/17 14:45 10/25/17 15:51 Habitrol 14mg/24hr Patch TRANSDERM Not Given DAILY [facility] Nitroglycerin 0.4 mg 10/25/17 10:41 Nitrostat SUBLINGUAL Q5M PRN Chest Pain Intake and Output 10/25/17 10/25/17 10/25/17 06:59 14:59 22:59 Intake Total 50.000 Balance 50.000 Intake: Intake, IV Titration 50.000 Amount Diltiazem 50 mg In Sodium 50.000 Chloride 0.9% 40 ml @ 15 MG/HR 15 mls/hr IV . Q3H20M [facility] Rx#:[id number] Other: Weight 106.594 kg Patient Weight 10/26/17 06:59 Weight 106.594 kg 10/25/17 08:33 10/25/17 08:33 Assessment and Plan Assessment: Assessment #1 atrial fibrillation/atrial flutter with RVR #2 known paroxysmal atrial fibrillation #3 hypertension #4 smoking #5 noncompliance with medication Plan #1 continue the current dose of Cardizem IV and titrate that for the heart rate #2 I am going to start the patient on oral beta benny with metoprolol and try to wean her from the Cardizem IV #3 continue IV heparin and consider oral anticoagulation in the next 24-48 hours #4 obtain an echocardiogram was Doppler #5 the TSH was checked and came in to be within normal limits #6 probably sleep study as an outpatient #7 follow-up with the patient. Thank you for allowing us participate in her care I will continue following up with the patient
[2017-10-25] MEDS: METOPROLOL TARTRATE 25 MG TAB PO SCH (20:05)
[2017-10-25] MEDS ORDERED: ALPRAZolam 0.25 MG TAB PO STA (20:29)
[2017-10-25] MEDS ORDERED: ONDANSETRON 4 MG/2 ML VIAL IVP PRN (20:30)
[2017-10-25 21:02] LABS: Troponin I 0.02 ng/mL (0.000-0.034)
[2017-10-25] MEDS: cloNIDine HCL 0.1 MG TAB PO SCH (21:59)
[2017-10-26] MEDS: DILTIAZEM 50 MG in SODIUM CHLORIDE 0.9% 40 ML IV SCH ×7 (02:15→22:08)
[2017-10-26 06:23] LABS: Mean Platelet Volume 8.1; Platelet Count 220 k/uL (150-450)
[2017-10-26 06:33] LABS: Cholesterol 197 mg/dL (<200); HDL Cholesterol 42 mg/dL (40-60); LDL Cholesterol,Calculated 120 mg/dL (0-99); Triglycerides 174 mg/dL (<150)
[2017-10-26] MEDS ORDERED: POTASSIUM CHLORIDE ER 20 MEQ TAB.ER PO STA (08:33)
[2017-10-26 08:37] LABS: HCT 42.6 % (34.0-46.0); MCH 30.9 pg (25.0-35.0); MCV 93.6 fL (80.0-100.0); Mean Platelet Volume 8.6; Platelet Count 217 k/uL (150-450); RBC 4.55 m/uL (3.80-5.40); RDW 13.1 % (11.5-15.5)
[2017-10-26 08:58] LABS: ALT 25 U/L (9-52); AST 15 U/L (14-36); Albumin 3.6 g/dL (3.5-5.0); Alkaline Phosphatase 57 U/L (38-126); Anion Gap 7 mmol/L; Blood Urea Nitrogen 9 mg/dL (7-17); Calcium 9.3 mg/dL (8.4-10.2); Carbon Dioxide 28 mmol/L (22-30); Chloride 105 mmol/L (98-107); Glucose 89 mg/dL (74-99); Potassium 3.9 mmol/L (3.5-5.1); Sodium 140 mmol/L (137-145); Total Bilirubin 0.4 mg/dL (0.2-1.3); Total Protein 6.2 g/dL (6.3-8.2)
[2017-10-26] MEDS: METOPROLOL TARTRATE 25 MG TAB PO SCH ×2 (08:59→21:07)
[2017-10-26] MEDS: FUROSEMIDE 40 MG TAB PO SCH (08:59)
[2017-10-26] MEDS: NICOTINE 14MG/24HR PATCH TRANSDERM SCH (08:59)
[2017-10-26] MEDS: FAMOTIDINE 20 MG TAB PO SCH (08:59)
[2017-10-26] MEDS: ASPIRIN 325 MG TAB PO SCH (08:59)
[2017-10-26] MEDS: HEPARIN SOD,PORK IN 0.45% NACL 25,000 UNIT in 0.45% NACL 1 500ML.BAG IV SCH (09:44)
[2017-10-26] MEDS: CITALOPRAM HYDROBROMIDE 10 MG TAB PO SCH (09:49)
--- NOTE | 2017-10-26 15:05 | P.PN ---
Subjective Progress Note Date: 10/26/17 This is a 47-year-old female patient with a past medical history significant for atrial fibrillation (likely paroxysmal), hypertension, and history of asthma, presented to the emergency room complaining of heart racing and fluttering. The patient was seen in our office last time about 3 years ago according to her. Since then she had no follow-up and she has not been taking any of her medication because she could not afford them and because of insurance issues. Currently she is under a lot of stress related to her family. She was in her usual state of health until yesterday when she started experiencing a sudden onset of heart racing and fluttering in the chest associated with dizziness and lightheadedness and without syncope but she felt very weak. No chest pain and no chest discomfort. The patient decided to come to the emergency room where she was found to be in atrial fibrillation/atrial flutter with a heart rate around 160 beats per minutes. She was given Cardizem IV 10 mg and subsequently 5 mg bolus and then she was started on Cardizem drip. Patient was seen and examined today, is currently in a normal sinus rhythm. Blood pressure 135/70 with a heart rate in the 50s to 70s, 96% on room air. White blood cell count 12.0, hemoglobin 14, platelet count 217. Sodium 140, potassium 3.9, BUN 9, creatinine 0.8. Objective - Vital Signs Vital signs: Vital Signs Temp 97.4 F L 10/26/17 08:00 Pulse 63 10/26/17 12:00 Resp 16 10/26/17 12:00 BP 178/85 10/26/17 12:00 Pulse Ox 96 10/26/17 12:00 Intake & Output 10/25/17 10/26/17 10/26/17 18:59 06:59 18:59 Intake Total 50.000 637.25 360 Output Total 300 Balance 50.000 337.25 360 Weight 106.594 kg 111.7 kg Intake: Intake, IV Titration 50.000 397.25 Amount Diltiazem 50 mg In Sodium 50.000 97.25 Chloride 0.9% 40 ml @ 15 MG/HR 15 mls/hr IV . Q3H20M [facility] Rx#:[id number] Sodium Chloride 0.9% 1, 300 000 ml @ 100 mls/hr IV . Q10H [facility] Rx#:[id number] Oral 240 360 Output: Other 300 Other: Voiding Method Toilet # Voids 2 - Exam PHYSICAL EXAMINATION: GENERAL: HEENT: Head is atraumatic, normocephalic. Pupils equal, round. Sclera anicteric. Conjunctiva are clear. Mucous membranes of the mouth are moist. Neck is supple. There is no elevated jugular venous pressure.] bruit is heard. HEART EXAMINATION: Heart S1, S2 normal. No murmur or gallop heard. CHEST EXAMINATION: Lungs are clear to auscultation and precussion. No chest wall tenderness is noted on palpation or with deep breathing. ABDOMEN: Soft, nontender. Bowel sounds are heard. No organomegaly noted. EXTREMITIES: 2+ peripheral pulses with no evidence of peripheral edema and no calf tenderness noted. NEUROLOGIC patient is awake, alert and oriented ?-3. . - Labs CBC & Chem 7: 10/26/17 06:05 10/26/17 06:05 Labs: Abnormal Lab Results - Last 24 Hours (Table) 10/26/17 10/26/17 10/26/17 Range/Units 06:05 06:05 06:05 WBC 12.0 H (3.8-10.6) k/uL Total Protein 6.2 L (6.3-8.2) g/dL Triglycerides 174 H (<150) mg/dL LDL Cholesterol, Calc 120 H (0-99) mg/dL Assessment and Plan Plan: Assessment #1 atrial fibrillation paroxysmal/atrial flutter with RVR typical #2 known paroxysmal atrial fibrillation #3 hypertension #4 smoking #5 noncompliance with medication Plan Cardiology's perspective, we'll recommend to continue patient on current dose of beta benny. She's also been recommended to continue baby aspirin daily. DNP note has been reviewed, I agree with a documented findings and plan of care. Patient was seen and examined.
--- NOTE | 2017-10-26 16:35 | ECHOF ---
Referral Reason:a.fib MEASUREMENTS -------- HEIGHT: 175.3 cm WEIGHT: 111.6 kg BP: IVSd: 1.0 cm (0.6 - 1.1) LVIDd: 5.4 cm (3.9 - 5.3) LVPWd: 1.2 cm (0.6 - 1.1) IVSs: 1.6 cm LVIDs: 4.1 cm LVPWs: 1.7 cm LAESV Index (A-L): 21.17 ml/m Ao Diam: 2.9 cm (2.0 - 3.7) LA Diam: 3.9 cm (2.7 - 3.8) MV EXCURSION: 17.180 mm (> 18.000) MV EF SLOPE: 121 mm/s (70 - 150) EPSS: 1.5 cm MV E Heraclio: 0.63 m/s MV A Heraclio: 0.69 m/s MV E/A Ratio: 0.92 RAP: 5.00 mmHg RVSP: 13.69 mmHg FINDINGS -------- Sinus rhythm. BBB This was a techncally difficult study with suboptimal views, , Lumason utilized for enhancement of im ages. The left ventricular size is normal. Left ventricular wall thickness is normal. Overall left vent ricular systolic function is mildly impaired with, an EF between 45 - 50 %. Apical anterior LV wall motion is hypokinetic. Apical septum LV wall motion is hypokinetic. The right ventricle is normal in size. The left atrial size is normal. The right atrial size is normal. 5.0mg OF Lumason UTLIZED: 2 OR MORE WALL SEGMENTS NOT VISUALIZED. The aortic valve is trileaflet and appears structurally normal. The mitral valve is normal. Mild mitral regurgitation is present. Mild tricuspid regurgitation present. There is no evidence of pulmonary hypertension. The right v entricular systolic pressure, as measured by Doppler, is 13.69mmHg. The pulmonic valve was not well visualized. There is no pulmonic regurgitation present. The aortic root size is normal. There is no pericardial effusion. CONCLUSIONS -------- 1. Sinus rhythm. 2. This was a techncally difficult study with suboptimal views, , Lumason utilized for enhancement of images. 3. The left ventricular size is normal. 4. Left ventricular wall thickness is normal. 5. Overall left ventricular systolic function is mildly impaired with, an EF between 45 - 50 %. 6. Apical anterior LV wall motion is hypokinetic. 7. Apical septum LV wall motion is hypokinetic. 8. The left atrial size is normal. 9. 5.0mg OF Lumason UTLIZED: 2 OR MORE WALL SEGMENTS NOT VISUALIZED. 10. The aortic valve is trileaflet and appears structurally normal. 11. Mild mitral regurgitation is present. 12. Mild tricuspid regurgitation present. 13. There is no evidence of pulmonary hypertension. 14. There is no pulmonic regurgitation present. 15. The aortic root size is normal. 16. There is no pericardial effusion. ASSISTANT CASINO SHIFT MANAGER: Dina Greenwood RDCS
[2017-10-26] MEDS ORDERED: ACETAMINOPHEN TAB 325 MG TAB PO PRN (18:53)
[2017-10-26] MEDS: cloNIDine HCL 0.1 MG TAB PO SCH (19:14)
[2017-10-26 22:08] VITALS: RESP 16
[2017-10-27] MEDS: DILTIAZEM 50 MG in SODIUM CHLORIDE 0.9% 40 ML IV SCH ×3 (00:35→07:10)
[2017-10-27 06:47] LABS: HCT 45.6 % (34.0-46.0); MCH 30.4 pg (25.0-35.0); MCHC 32.9 g/dL (31.0-37.0); MCV 92.5 fL (80.0-100.0); Platelet Count 216 k/uL (150-450); RBC 4.93 m/uL (3.80-5.40); WBC 10.8 k/uL (3.8-10.6)
[2017-10-27 07:00] LABS: ALT 27 U/L (9-52); AST 17 U/L (14-36); Alkaline Phosphatase 62 U/L (38-126); Anion Gap 7 mmol/L; Blood Urea Nitrogen 11 mg/dL (7-17); Calcium 9.4 mg/dL (8.4-10.2); Carbon Dioxide 30 mmol/L (22-30); Chloride 102 mmol/L (98-107); Glucose 88 mg/dL (74-99); Sodium 139 mmol/L (137-145); Total Bilirubin 0.7 mg/dL (0.2-1.3); Total Protein 6.7 g/dL (6.3-8.2)
--- NOTE | 2017-10-27 07:53 | P.PN ---
Subjective Progress Note Date: 10/26/17 This is a 47-year-old female patient of Dr. Gann with past medical history of mild intermittent asthma, hypertension, migraines. She states that she has not seen Dr. Gann for the past year and a half. She has history of sudden onset at 3 AM yesterday morning of dizziness. She felt her heart skipping but she states this happens all the time and she's been diagnosed with a left bundle branch block. She states she has not been taking any of her home medications that she cannot afford her medications. She states she has been very stressed out because she is moving, she has a new grandchild and her is looking at changing jobs. She also states that she had a TIA in November 2007 has not been able to work since that time. She states she has had multiple TIAs. She denies previous diagnosis of atrial fibrillation. She has been a smoker since 11 years of age and also is using marijuana 3 times daily. Patient came into [facility] emergency center for evaluation and was found to be in atrial fibrillation running in the 140s to 160s. White count was 15.7, hemoglobin 16.1. Troponin was negative on one drop. TSH 2.840, electrolytes were within normal limits. Renal function and liver function within normal limits. Blood sugar was 125. ProBNP 92. Urine drug screen was positive for marijuana. Urinalysis was clear nitrate and leukoesterase negative. chest x-ray shows no acute cardiopulmonary process. CTA of the chest showed no pulmonary embolism. Scattered ground glass opacities and reflux of contrast in the hepatic veins to suggest cardiogenic fluid overload. Correlate for echocardiogram. Groundglass opacities within the superior segment of the left upper lobe related to pneumonitis given lack of interseptal thickening to suggest further interstitial edema, lack of pleural effusions and absence of cardiomegaly. Patient was started on Cardizem drip and heparin drip and admitted to the selective care unit with cardiology consult. During evaluation, patient is very angry and somewhat aggressive and then burst into tears stating I don't want to . Patient has been reassured that she is not going to and that what she has is treatable. When discussing blood thinners with her, patient states that she has been told that she has thin blood and when she cuts herself she bleeds for hours. 7/21: Patient has been seen by Dr. Albarran and he has started her on Lopressor 25 mg twice daily. Triglycerides 174, cholesterol 197, LDL 120 and HDL 42. Repeat troponins were 0.012 and 0.020. Echocardiogram reveals EF 45-50%, technically difficult study, hypokinetic apical anterior and septal LV wall motion, mild mitral regurgitation, mild tricuspid regurgitation, no pulmonary hypertension. Cardiology has recommended at current dose of beta benny and a baby aspirin daily. Heart rate running in the 60s and 70s in a sinus bradycardia. Objective - Vital Signs Vital signs: Vital Signs Temp 96.9 F L 10/26/17 04:00 Pulse 58 L 10/26/17 04:00 Resp 16 10/26/17 04:00 BP 135/72 10/26/17 04:00 Pulse Ox 96 10/26/17 04:00 Intake & Output 10/25/17 10/26/17 10/26/17 18:59 06:59 18:59 Intake Total 50.000 637.25 120 Output Total 300 Balance 50.000 337.25 120 Weight 106.594 kg 111.7 kg Intake: Intake, IV Titration 50.000 397.25 Amount Diltiazem 50 mg In Sodium 50.000 97.25 Chloride 0.9% 40 ml @ 15 MG/HR 15 mls/hr IV . Q3H20M [facility] Rx#:[id number] Sodium Chloride 0.9% 1, 300 000 ml @ 100 mls/hr IV . Q10H [facility] Rx#:[id number] Oral 240 120 Output: Other 300 Other: Voiding Method Toilet # Voids 2 - Exam Gen: This is an obese 47-year-old female. She is resting on the stretcher and appears to be in no respiratory distress. No acute distress is noted. HEENT: Head is atraumatic, normocephalic. Pupils equal, round. Sclerae is anicteric. NECK: Supple. No JVD. No lymphadenopathy. No thyromegaly. LUNGS: Clear to auscultation. No wheezes or rhonchi. No intercostal retractions. HEART: Regular rate and rhythm. No murmur. ABDOMEN: Soft. Bowel sounds are present. No masses. No tenderness. EXTREMITIES: No pedal edema. No calf tenderness. NEUROLOGICAL: Patient is awake, alert and oriented x3. Cranial nerves 2 through 12 are grossly intact. - Labs CBC & Chem 7: 10/27/17 06:02 10/27/17 06:02 Labs: Abnormal Lab Results - Last 24 Hours (Table) 10/25/17 10/25/17 10/25/17 Range/Units 08:33 08:33 09:15 WBC 15.7 H (3.8-10.6) k/uL Hgb 16.1 H (11.4-16.0) gm/dL Hct 48.2 H (34.0-46.0) % Neutrophils # 10.9 H (1.3-7.7) k/uL Glucose 125 H (74-99) mg/dL Calcium 10.4 H (8.4-10.2) mg/dL Triglycerides (<150) mg/dL LDL Cholesterol, Calc (0-99) mg/dL U Marijuana (THC) Screen Detected H (NotDetected) 10/26/17 Range/Units 06:05 WBC (3.8-10.6) k/uL Hgb (11.4-16.0) gm/dL Hct (34.0-46.0) % Neutrophils # (1.3-7.7) k/uL Glucose (74-99) mg/dL Calcium (8.4-10.2) mg/dL Triglycerides 174 H (<150) mg/dL LDL Cholesterol, Calc 120 H (0-99) mg/dL U Marijuana (THC) Screen (NotDetected) Assessment and Plan Plan: 1. New onset atrial fibrillation (typical) with rapid ventricular response, paroxysmal atrial fibrillation. Patient started on Cardizem drip and heparin drip. Cardiology consult appreciated. Patient started on Lopressor and plan for anticoagulation. 2. Chest pain most likely secondary to atrial fibrillation. Patient was started on aspirin 325 mg, Nitrostat, heparin drip. Serial cardiac enzymes ordered. 3. Mild intermittent asthma, stable patient has not been on medication. 4. Hypertension, patient has not been on medication. 5. History of migraine headaches, stable. 6. Tobacco use and dependence. Nicotine patch. 7. Regular marijuana use, stable. 8. DVT prophylaxis, heparin. 9. GI prophylaxis. Pepcid. Discharge plan: return home Impression and plan of care have been directed as dictated by the signing physician. Mitra Shay nurse practitioner acting as scribe for signing physician.
[2017-10-27] MEDS: NICOTINE 14MG/24HR PATCH TRANSDERM SCH (08:02)
[2017-10-27] MEDS: ASPIRIN 325 MG TAB PO SCH (08:13)
[2017-10-27] MEDS: FAMOTIDINE 20 MG TAB PO SCH (08:13)
[2017-10-27] MEDS: METOPROLOL TARTRATE 25 MG TAB PO SCH (08:13)
[2017-10-27] MEDS: CITALOPRAM HYDROBROMIDE 10 MG TAB PO SCH (08:13)
[2017-10-27] MEDS: FUROSEMIDE 40 MG TAB PO SCH (08:13)
[2017-10-27] MEDS ORDERED: LOSARTAN 50 MG TAB PO SCH (09:00)
[2017-10-27 10:28] VITALS: BP 166/111; PULSE 69; TEMP 97.7
--- NOTE | 2017-10-27 10:40 | P.DS ---
Providers Date of admission: 10/25/17 10:42 Expected date of discharge: 10/27/17 Attending physician: Neymar Coulter Consults: 10/25/17 10:42 Consult Physician Urgent Consulting Provider: Gregorio Beltran Consult Reason/Comments: a fib Do you want consulting provider notified?: Yes Primary care physician: Anival VincentA[facility]em [facility] Course: This is a 47-year-old female patient of Dr. Gann with past medical history of mild intermittent asthma, hypertension, migraines. She states that she has not seen Dr. Gann for the past year and a half. She has history of sudden onset at 3 AM yesterday morning of dizziness. She felt her heart skipping but she states this happens all the time and she's been diagnosed with a left bundle branch block. She states she has not been taking any of her home medications that she cannot afford her medications. She states she has been very stressed out because she is moving, she has a new grandchild and her is looking at changing jobs. She also states that she had a TIA in November 2007 has not been able to work since that time. She states she has had multiple TIAs. She denies previous diagnosis of atrial fibrillation. She has been a smoker since 11 years of age and also is using marijuana 3 times daily. Patient came into [facility] for evaluation and was found to be in atrial fibrillation running in the 140s to 160s. White count was 15.7, hemoglobin 16.1. Troponin was negative on one drop. TSH 2.840, electrolytes were within normal limits. Renal function and liver function within normal limits. Blood sugar was 125. ProBNP 92. Urine drug screen was positive for marijuana. Urinalysis was clear nitrate and leukoesterase negative. chest x-ray shows no acute cardiopulmonary process. CTA of the chest showed no pulmonary embolism. Scattered ground glass opacities and reflux of contrast in the hepatic veins to suggest cardiogenic fluid overload. Correlate for echocardiogram. Groundglass opacities within the superior segment of the left upper lobe related to pneumonitis given lack of interseptal thickening to suggest further interstitial edema, lack of pleural effusions and absence of cardiomegaly. Patient was started on Cardizem drip and heparin drip and admitted to the selective care unit with cardiology consult. During evaluation, patient is very angry and somewhat aggressive and then burst into tears stating I don't want to . Patient has been reassured that she is not going to and that what she has is treatable. When discussing blood thinners with her, patient states that she has been told that she has thin blood and when she cuts herself she bleeds for hours. 10/26: Patient has been seen by Dr. Albarran and he has started her on Lopressor 25 mg twice daily. Triglycerides 174, cholesterol 197, LDL 120 and HDL 42. Repeat troponins were 0.012 and 0.020. Echocardiogram reveals EF 45-50%, technically difficult study, hypokinetic apical anterior and septal LV wall motion, mild mitral regurgitation, mild tricuspid regurgitation, no pulmonary hypertension. Cardiology has recommended at current dose of beta benny and a baby aspirin daily. Heart rate running in the 60s and 70s in a sinus bradycardia. 10/27: Heart rate is running in the 50s in a sinus bradycardia. Patient was complaining of some dizziness type symptoms yesterday when she started out. Orthostatics were negative. Patient's blood pressure has been still on the high side and due to the bradycardia, clonidine will be discontinued and patient started on losartan. Patient states she is able to afford the losartan and Lopressor as well as Lasix and potassium. These have been sent to her pharmacy. Patient will be discharged home today in stable condition. Noted the patient also states she has obstructive sleep apnea which will need further workup as an outpatient. Discharge diagnoses: 1. New onset atrial fibrillation (typical) with rapid ventricular response, paroxysmal atrial fibrillation. 2. Chest pain most likely secondary to atrial fibrillation. 3. Mild intermittent asthma, stable patient has not been on medication. 4. Hypertension 5. History of migraine headaches, stable. 6. Tobacco use and dependence. 7. Regular marijuana use, stable. Discharge plan: return home Impression and plan of care have been directed as dictated by the signing physician. Mitra Shay nurse practitioner acting as scribe for signing physician. Patient Condition at Discharge: Good Plan - Discharge Summary Discharge Rx Participant: No New Discharge Prescriptions: New Aspirin 325 mg PO DAILY tab Citalopram Hydrobromide [CeleXA] 10 mg PO DAILY #30 tablet Furosemide [Lasix] 40 mg PO DAILY #30 tablet Losartan [Cozaar] 50 mg PO DAILY #30 tab Metoprolol Tartrate [Lopressor] 25 mg PO BID #60 tablet Potassium Chloride ER [K-Dur 20] 20 meq PO DAILY #30 tab Discontinued cloNIDine HCL [Catapres] 0.1 mg PO HS Furosemide [Lasix] 40 mg PO DAILY Discharge Medication List Aspirin 325 mg PO DAILY tab 10/27/17 [Rx] Citalopram Hydrobromide [CeleXA] 10 mg PO DAILY #30 tablet 10/27/17 [Rx] Furosemide [Lasix] 40 mg PO DAILY #30 tablet 10/27/17 [Rx] Losartan [Cozaar] 50 mg PO DAILY #30 tab 10/27/17 [Rx] Metoprolol Tartrate [Lopressor] 25 mg PO BID #60 tablet 10/27/17 [Rx] Potassium Chloride ER [K-Dur 20] 20 meq PO DAILY #30 tab 10/27/17 [Rx] Follow up Appointment(s)/Referral(s): Richard Albarran MD [STAFF PHYSICIAN] - 1 Week Anival Gann DO [Primary Care Provider] - 1 Week Discharge Disposition: HOME SELF-CARE
--- NOTE | 2017-10-27 11:07 | PN ---
PROGRESS NOTE Ms. Humphrey 47-year-old female with history of hypertension, paroxysmal atrial fibrillation. She is back in sinus mechanism. She is feeling better today. Her breathing is stable. She is denying any dizziness. No palpitation. She had an echocardiogram that revealed a mildly impaired left ventricular systolic function with questionable segmental wall motion abnormality. She is ambulating without difficulty. She denies any nausea and vomiting. She continues to be on aspirin once a day, citalopram, furosemide 40 mg daily, losartan 50 mg daily, metoprolol tartrate 25 mg twice a day in addition to nicotine patch. PHYSICAL EXAMINATION: Blood pressure 140/80 with a heart in the 60s. LUNGS: Clear. Heart regular rate and rhythm S1, S2. No S3. No rub. ABDOMEN: Soft nontender. EXTREMITIES: No edema. LAB DATA: Revealed BUN and creatinine of 11 and 0.84, potassium 4.0. Hemoglobin 15. Her cholesterol is 197 with an LDL of 120. IMPRESSION: 1. Paroxysmal fibrillation back in sinus mechanism. 2. History of chronic tobacco use. 3. Hypertension. 4. Cardiomyopathy. 5. Hyperlipidemia. RECOMMENDATION: From the cardiac standpoint, the patient should be able to be discharged home today and followed as an outpatient. MMODL / IJN: [id number] /
== END 2017-10-27 11:29 | disposition home or self-care (01) | DRG 310 ==
LOC: EC 08:05 → 6SEL 10:42
PROVIDERS: ADMIT Internal Medicine Geriatric Medicine; ATTEND Internal Medicine Geriatric Medicine
DX: I48.0 Paroxysmal atrial fibrillation (principal); I48.3 Typical atrial flutter; I42.9 Cardiomyopathy, unspecified; I08.1 Rheumatic disorders of both mitral and tricuspid valves; J45.20 Mild intermittent asthma, uncomplicated; E78.5 Hyperlipidemia, unspecified; G47.33 Obstructive sleep apnea (adult) (pediatric); F41.9 Anxiety disorder, unspecified; I10 Essential (primary) hypertension; G43.909 Migraine, unspecified, not intractable, without status migrainosus; I44.7 Left bundle-branch block, unspecified; Z91.14 Patient's other noncompliance with medication regimen; F17.210 Nicotine dependence, cigarettes, uncomplicated; Z71.6 Tobacco abuse counseling; Z79.899 Other long term (current) drug therapy; Z90.710 Acquired absence of both cervix and uterus; Z98.51 Tubal ligation status; Z90.49 Acquired absence of other specified parts of digestive tract; Z86.73 Personal history of transient ischemic attack (TIA), and cerebral infarction without residual deficits; Z88.1 Allergy status to other antibiotic agents; Z91.040 Latex allergy status; Z88.5 Allergy status to narcotic agent; Z91.018 Allergy to other foods; Z88.2 Allergy status to sulfonamides; Z88.8 Allergy status to other drugs, medicaments and biological substances; Z82.49 Family history of ischemic heart disease and other diseases of the circulatory system; Z82.61 Family history of arthritis; Z82.79 Family history of other congenital malformations, deformations and chromosomal abnormalities
CPT/HCPCS: 36415; 71046; 71275; 80053; 80061; 80306; 81003; 82550; 82553; 83735; 83880; 84439; 84443; 84481; 84484; 85025; 85027; 85049; 85610; 85730; 93005; 93306; 96365; 96366; 96375; 96376; 99291

== ENCOUNTER 2021-07-29 19:22 | Inpatient (IN) | payer OTHER ==
[2021-07-29] MEDS ORDERED: SODIUM CHLORIDE 0.9% 500 ML 500 ML IV STA (19:27)
[2021-07-29] MEDS ORDERED: DILTIAZEM 125 MG in SODIUM CHLORIDE 0.9% 100 ML IV SCH (19:30)
[2021-07-29 19:48] LABS: Basophils # (A) 0.2 k/uL (0-0.2); Basophils % (A) 1 %; Eosinophils # (A) 0.4 k/uL (0-0.7); Eosinophils % (A) 2 %; HCT 47.4 % (34.0-46.0); HGB 15.7 gm/dL (11.4-16.0); Lymphocytes % (A) 31 %; MCH 31.1 pg (25.0-35.0); MCV 94.2 fL (80.0-100.0); Mean Platelet Volume 9.3; Monocytes # (A) 0.7 k/uL (0-1.0); Monocytes % (A) 3 %; Neutrophils # (A) 11.6 k/uL (1.3-7.7); Neutrophils % (A) 61 %; Platelet Count 274 k/uL (150-450); RBC 5.04 m/uL (3.80-5.40); RDW 12.8 % (11.5-15.5); WBC 19.1 k/uL (3.8-10.6)
[2021-07-29 19:56] LABS: INR 0.9 (<1.2); Partial Thromboplastin Time 28.4 sec (22.0-30.0); Prothrombin Time 10.3 sec (9.0-12.0)
--- NOTE | 2021-07-29 19:59 | ED ---
General Adult HPI - General Chief complaint: Arrhythmia/Palpitations Stated complaint: Afib Time Seen by Provider: 07/29/21 19:27 Source: patient, EMS, RN notes reviewed, old records reviewed Mode of arrival: EMS Limitations: no limitations - History of Present Illness Initial comments: 51-year-old female history of atrial fibrillation presenting for some onset of palpitations. No central chest pain. She has a mild chest discomfort associated with these symptoms. She also has some nausea. No diaphoresis. Patient admits to marijuana use today. No alcohol. - Related Data Previous Rx's Medication Instructions Recorded Metoprolol Tartrate [Lopressor] 25 mg PO BID #60 tablet 10/27/17 Allergies Allergy/AdvReac Type Severity Reaction Status Date / Time latex Allergy Dyspnea/Bret Verified 07/29/21 21:24 h/Hives morphine Allergy Unknown Verified 07/29/21 21:24 ofloxacin [From Floxin] Allergy Swelling Verified 07/29/21 21:24 of Ear Drums Sulfa (Sulfonamide Allergy Swelling Verified 07/29/21 21:24 Antibiotics) sulfamethoxazole Allergy Swelling Verified 07/29/21 21:24 [From Bactrim] trimethoprim [From Bactrim] Allergy Swelling Verified 07/29/21 21:24 nifedipine [From Procardia] AdvReac Increased Verified 07/29/21 21:24 Blood Pressure olmesartan medoxomil AdvReac Decreased Verified 07/29/21 21:24 [From Benicar] Heart Rate berries Allergy Rash/Hives Uncoded 07/29/21 21:24 nuts Allergy Rash/Hives Uncoded 07/29/21 21:24 Review of Systems ROS Statement: Those systems with pertinent positive or pertinent negative responses have been documented in the HPI. ROS Other: All systems not noted in ROS Statement are negative. Past Medical History Past Medical History: Atrial Fibrillation, Asthma, Hypertension, Myocardial Infarction ([place]) Additional Past Medical History / Comment(s): migraines, History of Any Multi-Drug Resistant Organisms: None Reported Past Surgical History: Cholecystectomy, Ear Surgery, Hysterectomy, Tubal Ligation Additional Past Surgical History / Comment(s): carpal tunnel, cone biopsy, core biopsy Past Anesthesia/Blood Transfusion Reactions: No Reported Reaction Past Psychological History: Anxiety Smoking Status: Current every day smoker Past Alcohol Use History: None Reported Past Drug Use History: Marijuana - Past Family History Father Family Medical History: No Reported History Additional Family Medical History / Comment(s): Father is alive at age 69 with history of hypertension. Mother Additional Family Medical History / Comment(s): Mother is alive at age 65 with history of rheumatoid arthritis. Sister(s) Additional Family Medical History / Comment(s): Patient has one sister that was "born crippled.". Patient has 3 children ages 28, 23 and 20 with no major medical problems. General Exam Limitations: no limitations General appearance: alert, in no apparent distress Head exam: Present: atraumatic, normocephalic Eye exam: Present: normal appearance, PERRL ENT exam: Present: normal exam Neck exam: Present: normal inspection. Absent: tenderness, meningismus Respiratory exam: Present: normal lung sounds bilaterally. Absent: respiratory distress, wheezes Cardiovascular Exam: Present: tachycardia, irregular rhythm GI/Abdominal exam: Present: soft. Absent: distended, tenderness, guarding Extremities exam: Present: normal inspection, normal capillary refill. Absent: pedal edema, calf tenderness Neurological exam: Present: alert, oriented X3, CN II-XII intact. Absent: motor sensory deficit Psychiatric exam: Present: normal mood, flat affect Skin exam: Present: warm, dry, intact. Absent: cyanosis, diaphoretic Course Vital Signs 07/29/21 07/29/21 19:24 20:39 Temperature 97.6 F Pulse Rate 170 H 176 H Respiratory 16 24 Rate Blood Pressure 103/86 154/115 O2 Sat by Pulse 99 98 Oximetry EKG Findings - EKG Comments: EKG Findings:: EKG: H fibrillation with RVR, wide complex rhythm, rate of 163, QRS duration 139, QTC 401. Similar appearance compared to prior EKG Medical Decision Making - Medical Decision Making 51-year-old female presenting with palpitations, nausea, found to be in A. fib with a rapid ventricular response. Her morphology of the QRS is similar compared to prior EKGs. Her she started on Cardizem. As well as IV fluid. Chest x-ray is clear. She has a leukocytosis which is likely secondary to vomiting. There is no infectious symptoms otherwise. She has normal electrolytes, stable hemoglobin, negative troponin. She's admitted to [facility] with cardiology on consult. - Lab Data Result diagrams: 07/29/21 19:37 07/29/21 19:37 Lab Results 07/29/21 07/29/21 07/29/21 Range/Units 19:37 19:37 19:37 WBC 19.1 H (3.8-10.6) k/uL RBC 5.04 (3.80-5.40) m/uL Hgb 15.7 (11.4-16.0) gm/dL Hct 47.4 H (34.0-46.0) % MCV 94.2 (80.0-100.0) fL MCH 31.1 (25.0-35.0) pg MCHC 33.0 (31.0-37.0) g/dL RDW 12.8 (11.5-15.5) % Plt Count 274 (150-450) k/uL MPV 9.3 Neutrophils % 61 % Lymphocytes % 31 % Monocytes % 3 % Eosinophils % 2 % Basophils % 1 % Neutrophils # 11.6 H (1.3-7.7) k/uL Lymphocytes # 6.0 H (1.0-4.8) k/uL Monocytes # 0.7 (0-1.0) k/uL Eosinophils # 0.4 (0-0.7) k/uL Basophils # 0.2 (0-0.2) k/uL PT 10.3 (9.0-12.0) sec INR 0.9 (<1.2) APTT 28.4 (22.0-30.0) sec Sodium 136 L (137-145) mmol/L Potassium 3.7 (3.5-5.1) mmol/L Chloride 102 (98-107) mmol/L Carbon Dioxide 26 (22-30) mmol/L Anion Gap 8 mmol/L BUN 12 (7-17) mg/dL Creatinine 0.95 (0.52-1.04) mg/dL Est GFR (CKD-EPI)AfAm 82 (>60 ml/min/1.73 sqM) Est GFR (CKD-EPI)NonAf 71 (>60 ml/min/1.73 sqM) Glucose 157 H (74-99) mg/dL Calcium 9.5 (8.4-10.2) mg/dL Magnesium 1.7 (1.6-2.3) mg/dL Total Bilirubin 0.7 (0.2-1.3) mg/dL AST 21 (14-36) U/L ALT 15 (4-34) U/L Alkaline Phosphatase 79 (38-126) U/L Troponin I (0.000-0.034) ng/mL Total Protein 7.3 (6.3-8.2) g/dL Albumin 4.3 (3.5-5.0) g/dL 07/29/21 Range/Units 19:37 WBC (3.8-10.6) k/uL RBC (3.80-5.40) m/uL Hgb (11.4-16.0) gm/dL Hct (34.0-46.0) % MCV (80.0-100.0) fL MCH (25.0-35.0) pg MCHC (31.0-37.0) g/dL RDW (11.5-15.5) % Plt Count (150-450) k/uL MPV Neutrophils % % Lymphocytes % % Monocytes % % Eosinophils % % Basophils % % Neutrophils # (1.3-7.7) k/uL Lymphocytes # (1.0-4.8) k/uL Monocytes # (0-1.0) k/uL Eosinophils # (0-0.7) k/uL Basophils # (0-0.2) k/uL PT (9.0-12.0) sec INR (<1.2) APTT (22.0-30.0) sec Sodium (137-145) mmol/L Potassium (3.5-5.1) mmol/L Chloride (98-107) mmol/L Carbon Dioxide (22-30) mmol/L Anion Gap mmol/L BUN (7-17) mg/dL Creatinine (0.52-1.04) mg/dL Est GFR (CKD-EPI)AfAm (>60 ml/min/1.73 sqM) Est GFR (CKD-EPI)NonAf (>60 ml/min/1.73 sqM) Glucose (74-99) mg/dL Calcium (8.4-10.2) mg/dL Magnesium (1.6-2.3) mg/dL Total Bilirubin (0.2-1.3) mg/dL AST (14-36) U/L ALT (4-34) U/L Alkaline Phosphatase (38-126) U/L Troponin I <0.012 (0.000-0.034) ng/mL Total Protein (6.3-8.2) g/dL Albumin (3.5-5.0) g/dL Critical Care Time Critical Care Time: Yes Total Critical Care Time: 35 Disposition Clinical Impression: Atrial fibrillation with RVR Disposition: ADMITTED IP TO THIS HOSP Condition: Stable Is patient prescribed a controlled substance at d/c from ED?: No Referrals: Anival Gann DO [Primary Care Provider] - 1-2 days Time of Disposition: 21:29
[2021-07-29] MEDS: DILTIAZEM DRIP BOLUS FROM BAG 1 MG SOLN IV ONE ×2 (20:04→21:21)
--- NOTE | 2021-07-29 20:07 | XR ---
EXAMINATION TYPE: XR chest 2V DATE OF EXAM: 07/29/2021 COMPARISON: 10/25/2017 HISTORY: Weakness TECHNIQUE: 2 views FINDINGS: Heart and mediastinum are normal. Lungs are clear. Diaphragm is normal. Bony thorax appears normal. There are chest leads. IMPRESSION: Normal chest. No change.
[2021-07-29 20:21] LABS: Albumin 4.3 g/dL (3.5-5.0); Calcium 9.5 mg/dL (8.4-10.2); Magnesium 1.7 mg/dL (1.6-2.3); Potassium 3.7 mmol/L (3.5-5.1); Total Bilirubin 0.7 mg/dL (0.2-1.3); Total Protein 7.3 g/dL (6.3-8.2)
[2021-07-29] MEDS ORDERED: NALOXONE 0.4 MG/ML 1 ML VIAL IV PRN (21:28)
--- NOTE | 2021-07-29 22:53 | P.HPIM ---
History of Present Illness H&P Date: 07/29/21 The patient is a 51-year-old female with a PMH of paroxysmal A. fib (on low-dose aspirin only), mild systolic CHF EF 45-50% on Echo in 2018, who presents to the emergency room with complaints of fatigue and palpitations. The patient reports that despite being compliant with her daily Lopressor use, she continues to have intermittent palpitations over the past several months. She reports occasion ally feeling fatigued, but reports that she felt worse than usual earlier today she reports that at 6 PM, she felt quite fatigued, at which time she attempted to take a nap, and was subsequently woken up with palpitations, nausea, and an episode of vomiting. She reports feeling somewhat better at the time of interview. Denied experiencing chest discomfort. Reports some lightheadedness with standing. Denied fever, chills, cough, abdominal pain, diarrhea. EKG in the emergency room revealed A. fib with RVR at 1 62 bpm. The patient's only complaint at the time of interview was fatigue. She denied shortness of breath or chest discomfort. Laboratory evaluation was remarkable for WBC count 19.1, troponin less than 0.012, and glucose 157. Review of systems: Pertinent positives and negatives as discussed in HPI, a complete review of systems was performed and all other systems are negative. Physical examination: General: non toxic, no distress, appears at stated age, morbidly obese Derm: no unusual rashes/lesions no unusual ecchymoses, warm, dry Head: atraumatic, normocephalic, symmetric Eyes: EOMI, no lid lag, anicteric sclera, pupils equal round reactive to light ENT: Nose and ears atraumatic, no thrush, no pharyngeal erythema Neck: No thyromegaly, no cervical lymphadenopathy, trachea midline, supple Mouth: no lip lesion, mucus membranes moist Cardiovascular: Irregularly irregular, no murmur, positive posterior tibial pulse bilateral, no edema, capillary refill less than 2 seconds Lungs: CTA bilateral, no rhonchi, no rales , no accessory muscle use Abdominal: soft, nontender to palpation, no guarding, no appreciable organomegaly, normal bowel sounds Ext: no gross muscle atrophy, muscle strength 5 out of 5 in all 4 extremities grossly, no contractures, Neuro: CN II-XI grossly intact, light touch intact all 4 extremities, finger to nose within normal limits, Psych: Alert, oriented, appropriate affect Assessment/plan A. fib with RVR -Continue with Cardizem infusion -The patient reports a prior history of bleeding easily with minimal trauma -Continue with aspirin for now -Cardiology consulted -Cardiac monitoring Hyperglycemia -Check A1c -Insulin sliding scale and blood glucose monitoring Leukocytosis -No signs of active infection at this time -Likely secondary to acute stressor -Monitor for now DVT prophylaxis -Heparin subcu The patient is admitted with an anticipated greater than 2 midnight stay for evaluation of afib with rvr CODE STATUS: Full Code Discussed with: Patient Anticipated discharge date: 2-[address]: Home Past Medical History Past Medical History: Atrial Fibrillation, Asthma, Hypertension, Myocardial Infarction ([place]) Additional Past Medical History / Comment(s): migraines, History of Any Multi-Drug Resistant Organisms: None Reported Past Surgical History: Cholecystectomy, Ear Surgery, Hysterectomy, Tubal Ligation Additional Past Surgical History / Comment(s): carpal tunnel, cone biopsy, core biopsy Past Anesthesia/Blood Transfusion Reactions: No Reported Reaction Past Psychological History: Anxiety Smoking Status: Current every day smoker Past Alcohol Use History: None Reported Past Drug Use History: Marijuana - Past Family History Father Family Medical History: No Reported History Additional Family Medical History / Comment(s): Father is alive at age 69 with history of hypertension. Mother Additional Family Medical History / Comment(s): Mother is alive at age 65 with history of rheumatoid arthritis. Sister(s) Additional Family Medical History / Comment(s): Patient has one sister that was "born crippled.". Patient has 3 children ages 28, 23 and 20 with no major medical problems. Medications and Allergies Home Medications Medication Instructions Recorded Confirmed Type Metoprolol Tartrate [Lopressor] 25 mg PO BID #60 tablet 10/27/17 07/29/21 Rx Allergies Allergy/AdvReac Type Severity Reaction Status Date / Time latex Allergy Dyspnea/Bret Verified 07/29/21 21:24 h/Hives morphine Allergy Unknown Verified 07/29/21 21:24 ofloxacin [From Floxin] Allergy Swelling Verified 07/29/21 21:24 of Ear Drums Sulfa (Sulfonamide Allergy Swelling Verified 07/29/21 21:24 Antibiotics) sulfamethoxazole Allergy Swelling Verified 07/29/21 21:24 [From Bactrim] trimethoprim [From Bactrim] Allergy Swelling Verified 07/29/21 21:24 nifedipine [From Procardia] AdvReac Increased Verified 07/29/21 21:24 Blood Pressure olmesartan medoxomil AdvReac Decreased Verified 07/29/21 21:24 [From Benicar] Heart Rate berries Allergy Rash/Hives Uncoded 07/29/21 21:24 nuts Allergy Rash/Hives Uncoded 07/29/21 21:24 Physical Exam Vitals: Vital Signs Temp Pulse Resp BP Pulse Ox 07/29/21 22:38 127 H 16 101/83 98 07/29/21 22:00 123 H 18 117/73 07/29/21 21:30 144 H 18 137/86 07/29/21 20:39 176 H 24 154/115 98 07/29/21 20:30 152 H 20 94/67 07/29/21 19:33 163 H 22 103/86 99 07/29/21 19:24 97.6 F 170 H 16 103/86 99 Intake and Output 07/29/21 07/29/21 07/29/21 06:59 14:59 22:59 Intake Total 13.333 Balance 13.333 Intake: Intake, IV Titration 13.333 Amount Diltiazem 125 mg In 13.333 Sodium Chloride 0.9% 100 ml @ 5 MG/HR 5 mls/hr IV .Q24H [facility] Rx#:[id number] Other: Weight 113.398 kg Results CBC & Chem 7: 07/29/21 19:37 07/29/21 19:37 Labs: Abnormal Lab Results - Last 24 Hours (Table) 07/29/21 07/29/21 Range/Units 19:37 19:37 WBC 19.1 H (3.8-10.6) k/uL Hct 47.4 H (34.0-46.0) % Neutrophils # 11.6 H (1.3-7.7) k/uL Lymphocytes # 6.0 H (1.0-4.8) k/uL Sodium 136 L (137-145) mmol/L Glucose 157 H (74-99) mg/dL
[2021-07-30] MEDS ORDERED: ACETAMINOPHEN TAB 325 MG TAB PO PRN (01:04)
[2021-07-30] MEDS: SODIUM CHLORIDE 0.9% 1,000 ML IV SCH ×2 (01:24→16:59)
[2021-07-30] MEDS ORDERED: HEPARIN SODIUM 1,000 UN/ML (10ML VL) IV ONE (08:59)
[2021-07-30 09:13] LABS: Basophils # (A) 0.1 k/uL (0-0.2); Basophils % (A) 1 %; Eosinophils # (A) 0.2 k/uL (0-0.7); Eosinophils % (A) 2 %; HCT 48.6 % (34.0-46.0); HGB 15.6 gm/dL (11.4-16.0); Lymphocytes % (A) 30 %; MCH 30.9 pg (25.0-35.0); MCHC 32.1 g/dL (31.0-37.0); MCV 96.1 fL (80.0-100.0); Mean Platelet Volume 8.7; Monocytes # (A) 0.6 k/uL (0-1.0); Monocytes % (A) 4 %; Neutrophils # (A) 8.2 k/uL (1.3-7.7); Neutrophils % (A) 62 %; Platelet Count 259 k/uL (150-450); RBC 5.05 m/uL (3.80-5.40); RDW 12.9 % (11.5-15.5); WBC 13.2 k/uL (3.8-10.6)
[2021-07-30 09:23] LABS: Partial Thromboplastin Time 27.3 sec (22.0-30.0); Prothrombin Time 10.5 sec (9.0-12.0)
[2021-07-30] MEDS: HEPARIN SOD,PORK IN 0.45% NACL 25,000 UNIT in 0.45% NACL 1 250ML.BAG IV SCH (10:19)
[2021-07-30] MEDS: METOPROLOL SUCCINATE (ER) 50 MG TAB.ER.24H PO SCH (10:19)
--- NOTE | 2021-07-30 12:42 | P.PN ---
Subjective Progress Note Date: 07/30/21 Principal diagnosis: palpitations Patient's rhythm converted to NSR this am. She is currently not having any palpitations. She was anxious when reminded that she needed to follow up with cardiology in the office due to lack of insurance and the fact that she can't afford it Objective - Vital Signs Vital signs: Vital Signs Temp 97.9 F 07/30/21 12:00 Pulse 81 07/30/21 12:00 Resp 18 07/30/21 12:00 BP 139/60 07/30/21 12:00 Pulse Ox 95 07/30/21 12:00 Intake & Output 07/29/21 07/30/21 07/30/21 18:59 06:59 18:59 Intake Total 69.333 Balance 69.333 Weight 113.398 kg Intake: Intake, IV Titration 69.333 Amount Diltiazem 125 mg In 69.333 Sodium Chloride 0.9% 100 ml @ 5 MG/HR 5 mls/hr IV .Q24H [facility] Rx#:[id number] - Exam Constitutional: No acute distress, conversant, pleasant Eyes:Anicteric sclerae, moist conjunctiva, no lid-lag, PERRLA, ENMT: Oropharynx clear, no erythema, exudates Neck: Supple, FROM, no masses, or JVD, No carotid bruits, No thyromegaly Lungs: Clear to auscultation, Clear to percussion, Normal respiratory effort, no accessory muscle use Cardiovascular: Heart regular in rate and rhythm, No murmurs, gallops, or rubs, No peripheral edema Abdominal: Soft, Nontender, no guarding, rebound or rigidity, Normoactive bowel sounds, No hepatomegaly, No splenomegaly, No palpable mass Skin: Normal temperature, tone, texture, turgor, no induration, No subcutaneous nodules, No rash, lesions, No ulcers Extremities: No digital cyanosis, No clubbing, Pedal pulses intact and symmetrical, Radial pulses intact and symmetrical, No calf tenderness Psychiatric: Alert and oriented to person, place and time, appropriate affect, intact judgement Neuro: Muscles Strength 5/5 in all 4 extremities, Sensation to light touch grossly present throughout, Cranial nerves II-XII grossly intact, no focal sensory deficits - Labs CBC & Chem 7: 07/30/21 09:03 07/29/21 19:37 Labs: Abnormal Lab Results - Last 24 Hours (Table) 07/29/21 07/29/21 07/30/21 Range/Units 19:37 19:37 09:03 WBC 19.1 H 13.2 H (3.8-10.6) k/uL Hct 47.4 H 48.6 H (34.0-46.0) % Neutrophils # 11.6 H 8.2 H (1.3-7.7) k/uL Lymphocytes # 6.0 H (1.0-4.8) k/uL Sodium 136 L (137-145) mmol/L Glucose 157 H (74-99) mg/dL Assessment and Plan Plan: A. fib with RVR -S/p Cardizem, now held, continue toprol xl 50mg daily. -The patient reports a prior history of bleeding easily with minimal trauma, continue on heparin for now according to cardio -Continue with aspirin -Cardiac monitoring -Echo Hyperglycemia -Check A1c -Insulin sliding scale and blood glucose monitoring Leukocytosis -No signs of active infection at this time -Likely secondary to acute stressor -Monitor for now DVT prophylaxis -Heparin subcu CODE STATUS: Full Code Discussed with: Patient Anticipated discharge date: 1-[address]: Home
--- NOTE | 2021-07-30 13:57 | P.CRDCN ---
History of Present Illness Consult date: 07/30/21 Consult reason: atrial fibrillation History of present illness: This is Zac Vicente NP, I'm dictating on behalf of Dr. Miller's H&P and A&P The patient was interviewed and examined. HPI: Patient is a pleasant 51-year-old female who initially presented to the hospital with complaints of skipping beats, nausea, vomiting, dizziness. Patient reports she's had atrial fibrillation since 19 years old, and stated that yesterday she started having sensations in her chest that were similar to prior episodes of atrial fibrillation. She states that she's been in and out of atrial fibrillation for quite some time. After the episode continued, with her having nausea, vomiting, and dizziness, she presented to the emergency department for evaluation. Patient was found on telemetry to be in atrial fibrillation with rapid ventricular response. She was started on Cardizem, and spontaneously converted back to normal sinus rhythm about 1:30 in the morning. Patient is unable to definitively report how long she was in A. fib before she presented to the hospital. We were subsequent consult for evaluation of her atrial fibrillation. Patient has a past medical history that includes atrial fibrillation, asthma, hypertension, and MA. She has a past surgical history that includes cholecystectomy, ear surgery, hysterectomy, and tubal ligation. Patient reports she's occurring every day smoker, and denies current alcohol use. She does report marijuana use regularly. Patient was interviewed and examined lying in the bed. Patient reports that she feels better since she's had conversion. Asians EKG does demonstrate cardiomyopathy, with left bundle branch block. Patient normally only takes metoprolol 25 mg twice a day. During the interview, patient became very tearful, stating that she is unable to afford most of the medications that she needs to stay alive, as she is unable to work due to her multiple medical issues. Upon entry the physician to the room, we decided that the patient would benefit from IV heparin, increase her metoprolol to 50 daily, and obtaining a 2-D echo Doppler tomorrow morning. Patient became quite agitated asking why we will place her on IV heparin, not giving the physician a chance to explain. After she calmed down, we did explain that IV heparin would be used for anticoagulation secondary to unknown amount of time that she was in atrial fibrillation, and how it can cause clots. After this the patient comes him and understood. Patient will likely need further workup after her echo, including a possible cath. ROS: [No fever, chills, or rigors] [no cough, phlegm, or expectoration] [no nausea, vomiting, or diarrhea] [no hematuria, dysuria] [no musculoskelatal complaints] [no strokes or seizures] [no skin lesions] EXAMINATION: GENERAL: Well-appearing, well-nourished and in no acute distress. NECK: Supple without JVD or thyromegaly. LUNGS: Breath sounds clear to auscultation bilaterally. Respiration equal and unlabored. No wheezes, rales or rhonchi. HEART: Regular rate and rhythm without murmurs, rubs or gallops. S1 and S2 heard. EXTREMITIES: Normal range of motion, no edema. No clubbing or cyanosis. Peripheral pulses intact and strong. REVIEW OF LABS, ECG & MEDICAL DATA: LABS: White count 13.2, hemoglobin 15.6, platelets 259, sodium 136, potassium 3.7, B1 12, creatinine 0.95, calcium 9.5, magnesium 1.7, troponin less than 0.012, TSH 3.950 EKG: Initial demonstrates atrial fibrillation with rapid ventricular response, secondary after spontaneous conversion shows normal sinus rhythm IMAGING: Chest x-ray dated 07/29/2021 demonstrates a normal chest with no das es. VITALS: Temp 97.1, pulse 75, respirations 22, blood pressure 134/78, O2 saturation 98% on room air IMPRESSION/PLAN: 1. Atrial fibrillation with rapid ventricular response. Recommend starting IV heparin. Metoprolol increased to 50 mg daily long acting. Obtain a 2-D echocardiogram tomorrow morning. Patient will likely need heart catheterization diagnostically. 2. Hypertension-we'll watch blood pressure closely. May start antihypertensives if warranted. 3. History MA-recommendations as above. Patient should remain on telemetry. Further recommendations pending patient's clinical course. Thank you for the consult and allowing us to participate in the care of this patient. Past Medical History Past Medical History: Atrial Fibrillation, Asthma, Hypertension, Myocardial Infarction (MA) Additional Past Medical History / Comment(s): migraines, History of Any Multi-Drug Resistant Organisms: None Reported Past Surgical History: Cholecystectomy, Ear Surgery, Hysterectomy, Tubal Ligation Additional Past Surgical History / Comment(s): carpal tunnel, cone biopsy, core biopsy Past Anesthesia/Blood Transfusion Reactions: No Reported Reaction Past Psychological History: Anxiety Smoking Status: Current every day smoker Past Alcohol Use History: None Reported Past Drug Use History: Marijuana - Past Family History Father Family Medical History: No Reported History Additional Family Medical History / Comment(s): Father is alive at age 69 with history of hypertension. Mother Additional Family Medical History / Comment(s): Mother is alive at age 65 with history of rheumatoid arthritis. Sister(s) Additional Family Medical History / Comment(s): Patient has one sister that was "born crippled.". Patient has 3 children ages 28, 23 and 20 with no major medical problems. Medications and Allergies Home Medications Medication Instructions Recorded Confirmed Type Metoprolol Tartrate [Lopressor] 25 mg PO BID #60 tablet 10/27/17 07/29/21 Rx Allergies Allergy/AdvReac Type Severity Reaction Status Date / Time latex Allergy Dyspnea/Bret Verified 07/29/21 21:24 h/Hives morphine Allergy Unknown Verified 07/29/21 21:24 ofloxacin [From Floxin] Allergy Swelling Verified 07/29/21 21:24 of Ear Drums Sulfa (Sulfonamide Allergy Swelling Verified 07/29/21 21:24 Antibiotics) sulfamethoxazole Allergy Swelling Verified 07/29/21 21:24 [From Bactrim] trimethoprim [From Bactrim] Allergy Swelling Verified 07/29/21 21:24 nifedipine [From Procardia] AdvReac Increased Verified 07/29/21 21:24 Blood Pressure olmesartan medoxomil AdvReac Decreased Verified 07/29/21 21:24 [From Benicar] Heart Rate berries Allergy Rash/Hives Uncoded 07/29/21 21:24 nuts Allergy Rash/Hives Uncoded 07/29/21 21:24 Physical Exam Vitals: Vital Signs Temp Pulse Pulse Resp BP BP Pulse Ox 07/30/21 12:00 97.9 F 81 18 139/60 95 07/30/21 08:00 97.1 F L 75 22 134/78 98 07/30/21 06:25 74 16 124/69 98 07/30/21 01:30 72 16 147/88 07/30/21 00:00 122 H 18 107/86 98 07/29/21 22:38 127 H 16 101/83 98 07/29/21 22:00 123 H 18 117/73 07/29/21 21:30 144 H 18 137/86 07/29/21 20:39 176 H 24 154/115 98 07/29/21 20:30 152 H 20 94/67 07/29/21 19:33 163 H 22 103/86 99 07/29/21 19:24 97.6 F 170 H 16 103/86 99 Intake and Output 07/29/21 07/30/21 07/30/21 22:59 06:59 14:59 Intake Total 13.333 56 Balance 13.333 56 Intake: Intake, IV Titration 333 56 Amount Diltiazem 125 mg In 333 56 Sodium Chloride 0.9% 100 ml @ 5 MG/HR 5 mls/hr IV .Q24H [facility] Rx#:[id number] Other: Weight 113.398 kg Results 07/30/21 09:03 07/29/21 19:37 Cardiac Enzymes 07/29/21 07/29/21 Range/Units 19:37 19:37 AST 21 (14-36) U/L Troponin I <0.012 (0.000-0.034) ng/mL Coagulation 07/29/21 07/30/21 Range/Units 19:37 09:03 PT 10.3 10.5 (9.0-12.0) sec APTT 28.4 27.3 (22.0-30.0) sec CBC 07/29/21 07/30/21 Range/Units 19:37 09:03 WBC 19.1 H 13.2 H (3.8-10.6) k/uL RBC 5.04 5.05 (3.80-5.40) m/uL Hgb 15.7 15.6 (11.4-16.0) gm/dL Hct 47.4 H 48.6 H (34.0-46.0) % Plt Count 274 259 (150-450) k/uL Comprehensive Metabolic Panel 07/29/21 Range/Units 19:37 Sodium 136 L (137-145) mmol/L Potassium 3.7 (3.5-5.1) mmol/L Chloride 102 (98-107) mmol/L Carbon Dioxide 26 (22-30) mmol/L BUN 12 (7-17) mg/dL Creatinine 0.95 (0.52-1.04) mg/dL Glucose 157 H (74-99) mg/dL Calcium 9.5 (8.4-10.2) mg/dL AST 21 (14-36) U/L ALT 15 (4-34) U/L Alkaline Phosphatase 79 (38-126) U/L Total Protein 7.3 (6.3-8.2) g/dL Albumin 4.3 (3.5-5.0) g/dL Current Medications Generic Name Dose Route Start Last Admin Trade Name Latoya PRN Reason Stop Dose Admin Acetaminophen 650 mg 07/30/21 01:04 07/30/21 01:08 Acetaminophen Tab 325 Mg Tab PO 650 mg Q6HR PRN Administration Fever and/ or Pain Heparin Sodium (Porcine) 0 unit 07/30/21 08:59 Heparin Sodium 1,000 Un/Ml (10ml Vl) IV PER PROTOCOL PRN Low PTT Protocol Sodium Chloride 1,000 mls @ 75 mls/hr 07/29/21 21:30 07/30/21 01:24 Saline 0.9% IV 75 mls/hr .[id number] [facility] Administration Heparin Sodium/Sodium Chloride 250 mls @ 10.001 mls/hr 07/30/21 09:00 07/30/21 10:19 25,000 unit/ Sodium Chloride IV 8.819 units/kg/hr .Q24H [facility] 10.001 mls/hr Administration Protocol 8.819 UNITS/KG/HR Metoprolol Succinate 50 mg 07/30/21 09:00 07/30/21 10:19 Metoprolol Succinate (Er) 50 Mg Tab.Er.24h PO 50 mg DAILY [facility] Administration Naloxone HCl 0.2 mg 07/29/21 21:28 Naloxone 0.4 Mg/Ml 1 Ml Vial IV Q2M PRN Opioid Reversal Intake and Output 07/29/21 07/30/21 07/30/21 22:59 06:59 14:59 Intake Total 13.333 56 Balance 13.333 56 Intake: Intake, IV Titration 13.333 56 Amount Diltiazem 125 mg In 333 56 Sodium Chloride 0.9% 100 ml @ 5 MG/HR 5 mls/hr IV .Q24H [facility] Rx#:[id number] Other: Weight 113.398 kg 07/30/21 09:03 07/29/21 19:37
[2021-07-30] MEDS: HEPARIN SODIUM 1,000 UN/ML (10ML VL) IV PRN ×2 (16:20→23:31)
[2021-07-30] MEDS ORDERED: ONDANSETRON 4 MG/2 ML VIAL IVP PRN (16:35)
[2021-07-31 10:22] LABS: Basophils # (A) 0.1 k/uL (0-0.2); Basophils % (A) 1 %; Eosinophils # (A) 0.1 k/uL (0-0.7); Eosinophils % (A) 1 %; HCT 43.4 % (34.0-46.0); Lymphocytes % (A) 31 %; MCH 31.4 pg (25.0-35.0); MCHC 32.2 g/dL (31.0-37.0); MCV 97.4 fL (80.0-100.0); Mean Platelet Volume 9.3; Monocytes # (A) 0.3 k/uL (0-1.0); Monocytes % (A) 3 %; Neutrophils # (A) 5.9 k/uL (1.3-7.7); Neutrophils % (A) 62 %; Platelet Count 224 k/uL (150-450); RBC 4.46 m/uL (3.80-5.40); RDW 13.3 % (11.5-15.5); WBC 9.6 k/uL (3.8-10.6)
[2021-07-31 10:44] LABS: Prothrombin Time 10.9 sec (9.0-12.0)
[2021-07-31] MEDS: METOPROLOL SUCCINATE (ER) 50 MG TAB.ER.24H PO SCH (11:39)
[2021-07-31] MEDS: SODIUM CHLORIDE 0.9% 1,000 ML IV SCH ×3 (11:39→14:41)
[2021-07-31] MEDS: HEPARIN SOD,PORK IN 0.45% NACL 25,000 UNIT in 0.45% NACL 1 250ML.BAG IV SCH (11:39)
--- NOTE | 2021-07-31 11:52 | PN ---
PROGRESS NOTE FOLLOW-UP NOTE: The patient is a 51-year-old lady with history of hypertension and paroxysmal atrial fibrillation who is admitted to hospital with an episode of atrial fibrillation with rapid ventricular rate and was evaluated by Dr. Miller. Patient is currently on aspirin, metoprolol and IV heparin. We are waiting on echo results this morning before we discontinue the heparin. Patient had a Marky Vasc score of 1. There is no strong indication for starting her on anticoagulant at this time, and for insurance reasons she is not able to afford most of the medications. On exam this morning she is comfortable at rest. Vital signs are stable. Chest exam reveals good air entry bilaterally. Heart exam reveals first and second heart sounds. No gallop. No murmur. Abdomen is soft. Examination of extremities did not reveal any edema. Peripheral pulses are felt. ASSESSMENT: Paroxysmal atrial fibrillation. PLAN: Will review the echo. If it shows normal LV function, stop the heparin, treat the patient with aspirin and metoprolol and arrange followup with Cardiology. MMODL / IJN: [id number] /
--- NOTE | 2021-07-31 13:57 | P.PN ---
Subjective Progress Note Date: 07/31/21 Hospital course: Patient is a very pleasant 51-year-old female with a past medical history of paroxysmal atrial fibrillation (not on anticoagulation and using daily low-dose aspirin), mild systolic congestive heart failure with previously known EF of 45- 50%, PTSD, hypertension, PTSD, nicotine dependence, and marijuana use. She presented to the emergency department on 07/29/21 with a chief complaint of palpitations accompanied by chest discomfort and a single episode of nausea and vomiting. She underwent full evaluation in the emergency department and EKG revealed A. fib RVR at 163 bpm. Laboratory findings revealed significant leukocytosis with WBC count of 19.1 and otherwise unremarkable. TSH normal findings at 3.950. Troponin negative at less than 0.012. Patient was given Cardizem bolus followed by infusion and started on heparin infusion. Patient was admitted under our services with consultation to cardiology. Physical exam: Patient seen and fully evaluated at bedside. Patient ambulating in halls and appears to be doing well. Patient has converted back to normal sinus rhythm at this time. Patient remains on IV heparin infusion pending completion of echoc ardiogram. Patient currently denies having any chest pain, palpitations, shortness of breath, or dyspnea with exertion. Morning labs reviewed and stable. Leukocytosis has resolved with WBC count of 9.6 this morning. Vital signs reviewed and stable. General: Nontoxic, no distress and appears stated age. Derm: Skin warm and dry, normal coloration for ethnicity. Head: Atraumatic, normocephalic and symmetric. Eyes: EOMs intact, no lid lag, and anicteric sclera Mouth: no lip lesions, mucus membranes moist Cardiovascular: regular rate and rhythm with normal S1S2, no murmur, positive posterior tibial pulses bilaterally, and cap refill < 2 seconds. Lungs: Respirations even, regular, and unlabored on room air. Lungs CTA bilaterally, no rhonchi, no rales, no wheezing, and no accessory muscle usage. Abdominal: soft, nontender to palpation, no guarding, no appreciable organomegaly Ext: ROM intact. No gross muscle atrophy, no edema, no contractures Neuro: Speech clear, face symmetrical and CN II-XII grossly intact with no noted focal neuro deficits Psych: Alert and oriented to person, place, time, and situation. Appropriate and pleasant affect. Assessment and Plan of Care: Atrial fibrillation with RVR Hypertension Chronic systolic congestive heart failure with previously known EF of 45-50% Nicotine dependence Marijuana use/abuse PTSD -Continue anticoagulation with IV heparin infusion. -Echocardiogram to be completed -Continue metoprolol succinate 50 mg daily. -Continue telemetry monitoring. -Cardiology following, appreciate further recommendations. -Recommend cessation of tobacco products. CODE STATUS: Full code DVT prophylaxis: Heparin infusion Discussed with: Patient and RN Anticipated discharge date: Clinical course to determine Anticipated discharge place: Home A total of 35 minutes was spent on the care of this complex patient more than 50% of the time was spent in counseling and care coordination. I reviewed the documentation as provided by the TASHIA above, who is the original author of this note. I agree with the documented assessment and plan, with the following changes: None Objective - Vital Signs Vital signs: Vital Signs Temp 97.7 F 07/31/21 08:00 Pulse 77 07/31/21 08:00 Resp 18 07/31/21 13:41 BP 176/91 07/31/21 08:00 Pulse Ox 96 07/31/21 08:00 Intake & Output 07/30/21 07/31/21 07/31/21 18:59 06:59 18:59 Intake Total 1550.173 88.562 Balance 1550.173 88.562 Weight 113.398 kg Intake: Intake, IV Titration 810.173 88.562 Amount Heparin Sod,Pork in 0.45% 60.173 88.562 NaCl 25,000 unit In 0.45 % NaCl 1 250ml.bag @ 8. 819 UNITS/KG/HR 10.001 mls/hr IV .Q24H [facility] Rx#: [id number] Sodium Chloride 0.9% 1, 750 000 ml @ 75 mls/hr IV . [id number] [facility] Rx#:[id number] Oral 740 Other: # Voids 4 2 - Labs CBC & Chem 7: 07/31/21 07:50 07/29/21 19:37 Labs: Abnormal Lab Results - Last 24 Hours (Table) 07/30/21 07/30/21 07/31/21 Range/Units 15:14 22:27 07:50 APTT 39.6 H 30.5 H 39.6 H (22.0-30.0) sec
[2021-07-31] MEDS ORDERED: ASPIRIN 81 MG ONE (13:58)
[2021-07-31] MEDS ORDERED: ASPIRIN 325 MG TAB ONE (14:00)
[2021-07-31] MEDS: ASPIRIN 325 MG TAB PO SCH (14:00)
[2021-07-31] MEDS ORDERED: hydrALAZINE HCL 25 MG TAB PO STA (21:46)
[2021-08-01] MEDS: ASPIRIN 325 MG TAB PO SCH (08:35)
[2021-08-01] MEDS: METOPROLOL SUCCINATE (ER) 50 MG TAB.ER.24H PO SCH (08:35)
--- NOTE | 2021-08-01 09:14 | P.DS ---
Providers Date of admission: 07/29/21 21:29 Expected date of discharge: 08/01/21 Attending physician: Neymar Coulter Consults: 07/29/21 21:29 Consult Physician Routine Consulting Provider: Trevon Miller Consult Reason/Comments: A-fib Do you want consulting provider notified?: Yes Primary care physician: [facility] Course: Hospital course: Patient is a very pleasant 51-year-old female with a past medical history of paroxysmal atrial fibrillation (not on anticoagulation and using daily low-dose aspirin), mild systolic congestive heart failure with previously known EF of 45- 50%, PTSD, hypertension, PTSD, nicotine dependence, and marijuana use. She presented to the emergency department on 07/29/21 with a chief complaint of palpitations accompanied by chest discomfort and a single episode of nausea and vomiting. She underwent full evaluation in the emergency department and EKG revealed A. fib RVR at 163 bpm. Laboratory findings revealed significant leukocytosis with WBC count of 19.1 and otherwise unremarkable. TSH normal findings at 3.950. Troponin negative at less than 0.012. Patient was given Cardizem bolus followed by infusion and started on heparin infusion. Patient was admitted under our services with consultation to cardiology. 08/01: Patient has converted to sinus rhythm running in the 60s. She denies having any chest pain. Discussed sleep apnea with the patient and she states she had a CPAP machine but be cause of sinus infections she is no longer using it. Encouraged patient to follow-up with her PCP and undergo further testing and evaluation to address sleep study. Cardiology increased metipranolol to Toprol-XL at 50 mg daily and recommended aspirin. Will also start the patient on losartan which she has been on in the past. Patient will be discharged today in stable condition. Formal echocardiogram report is not available but reported by cardiology is normal EF. DISCHARGE DIAGNOSES Atrial fibrillation with RVR Paroxysmal atrial fibrillation Hypertension Chronic systolic congestive heart failure with previously known EF of 45-50% Nicotine dependence Marijuana use/abuse PTSD DISCHARGE PLAN Home Greater than 35 minutes was utilized and coordinating patient's discharge. Impression and plan of care have been directed as dictated by the signing physician. Mitra Shay nurse practitioner acting as scribe for signing physician. Patient Condition at Discharge: Stable Plan - Discharge Summary Discharge Rx Participant: No New Discharge Prescriptions: New Aspirin 325 mg PO DAILY tab Losartan [Cozaar] 50 mg PO DAILY #30 tab Metoprolol Succinate (ER) [Toprol Xl] 50 mg PO DAILY #30 tab Discontinued Metoprolol Tartrate [Lopressor] 25 mg PO BID #60 tablet Discharge Medication List Aspirin 325 mg PO DAILY tab 08/01/21 [Rx] Losartan [Cozaar] 50 mg PO DAILY #30 tab 08/01/21 [Rx] Metoprolol Succinate (ER) [Toprol Xl] 50 mg PO DAILY #30 tab 08/01/21 [Rx] Follow up Appointment(s)/Referral(s): Richard Albarran MD [STAFF PHYSICIAN] - 1 Week (Office will call you to set up a follow-up appointment. ) Anival Gann DO [Primary Care Provider] - 1 Week (office will call you with a date and time) Patient Instructions/Handouts: A-fib (Atrial Fibrillation) (DC) Discharge Disposition: HOME SELF-CARE
[2021-08-01 10:01] VITALS: BP 184/100; PULSE 89; RESP 18; TEMP 98.2
--- NOTE | 2021-08-01 11:56 | P.PN ---
Subjective Progress Note Date: 08/01/21 HISTORY OF PRESENT ILLNESS: Patient examined this morning at the bedside. Patient denies chest pain or pressure. She denies shortness of breath. Patient is refusing to wear telemet ry monitoring. Patient is also apparently refusing her IV heparin. Vital signs are stable. 2D echo is pending. PHYSICAL EXAM: VITAL SIGNS: Reviewed. GENERAL: Well-developed in no acute distress. NECK: Supple. No JVD or thyromegaly LUNGS: Respirations even and unlabored. Lungs essentially clear to auscultation bilaterally. HEART: Regular rate and rhythm. S1 and S2 heard. EXTREMITIES: Normal range of motion. No clubbing or cyanosis. Peripheral pulses intact. No lower extremity edema ASSESSMENT: Paroxysmal atrial fibrillation PLAN: 2D echo ordered. Await results Continue with metoprolol and aspirin. Patient refusing heparin Further recommendations pending patient course Nurse practitioner note has been reviewed by physician. Signing provider agrees with the documented findings, assessment, and plan of care. Objective - Vital Signs Vital signs: Vital Signs Temp 98.2 F 08/01/21 08:00 Pulse 89 08/01/21 08:00 Resp 18 08/01/21 08:00 BP 184/100 08/01/21 08:00 Pulse Ox 95 08/01/21 08:00 Intake & Output 07/31/21 08/01/21 08/01/21 18:59 06:59 18:59 Intake Total 101.265 240 Balance 101.265 240 Intake: Intake, IV Titration 101.265 Amount Heparin Sod,Pork in 0.45% 101.265 NaCl 25,000 unit In 0.45 % NaCl 1 250ml.bag @ 8. 819 UNITS/KG/HR 10.001 mls/hr IV .Q24H [facility] Rx#: [id number] Oral 240 Other: Voiding Method Toilet # Voids 2 - Labs CBC & Chem 7: 07/31/21 07:50 07/29/21 19:37
--- NOTE | 2021-08-01 17:34 | CA ---
Transthoracic Echo Report Name: Cathi Humphrey Age: 51 Gender: F : 1970 Exam Date: 07/31/2021 13:43 Exam Location: [facility] Ht (in): 68 Wt (lb): 250 Ordering Physician: Zac Vicente Attending/Referring Phys: Counter Caser Dina Greenwood RDCS Procedure CPT: Indications: afib Cardiac Hx: AFIB,SMOKER,COPD Technical Quality: Contrast 1: Lumason Total Dose (mL): 5 Contrast 2: Total Dose (mL): MEASUREMENTS (Male / Female) Normal Values 2D ECHO LV Diastolic Diameter PLAX 5.8 cm 4.2 - 5.9 / 3.9 - 5.3 cm LV Systolic Diameter PLAX 4.5 cm IVS Diastolic Thickness 0.8 cm 0.6 - 1.0 / 0.6 - 0.9 cm LVPW Diastolic Thickness 1.1 cm 0.6 - 1.0 / 0.6 - 0.9 cm LV Relative Wall Thickness 0.3 RV Internal Dim ED PLAX 2.8 cm LA Volume 72.3 cm 18 - 58 / 22 - 52 cm M-MODE Aortic Root Diameter MM 2.6 cm LA Systolic Diameter MM 3.1 cm LA Ao Ratio MM 1.2 AV Cusp Separation MM 1.9 cm FINDINGS Left Ventricle Left ventricle is mildly enlarged. There is anteroseptal akinesia and also mild anterior wall hypokinesia. Ejection fraction is about 35%. Right Ventricle Normal right ventricular size and function. Right Atrium Normal right atrial size. Left Atrium Moderately increased left atrial volume. Mitral Valve Mild mitral regurgitation. Aortic Valve Trileaflet aortic valve. Tricuspid Valve Mild tricuspid regurgitation. Pulmonic Valve Pulmonic valve not well visualized. Pericardium Echo free space anterior to the right ventricle likely represents a fat pad. Aorta Aortic root and proximal ascending aorta not well visualized. CONCLUSIONS The left ventricle is enlarged with wall motion abnormality involving the anterolateral wall and anteroseptal. With severe hypokinesia. There is mild mitral and tricuspid insufficiency. Left atrium is enlarged. There is no pericardial effusion. A small fat pad cannot be excluded. Previewed by: Dr. Marco Ruiz MD (Electronically Signed) Final Date: 01 August 2021 17:33
== END 2021-08-01 13:47 | disposition home or self-care (01) | DRG 309 ==
LOC: EC 19:22 → 3SCARD 21:29
PROVIDERS: ADMIT Internal Medicine Geriatric Medicine; ATTEND Internal Medicine Geriatric Medicine
DX: I48.0 Paroxysmal atrial fibrillation (principal); I50.22 Chronic systolic (congestive) heart failure; I42.9 Cardiomyopathy, unspecified; D72.829 Elevated white blood cell count, unspecified; F17.210 Nicotine dependence, cigarettes, uncomplicated; R73.9 Hyperglycemia, unspecified; F43.10 Post-traumatic stress disorder, unspecified; F12.10 Cannabis abuse, uncomplicated; I11.0 Hypertensive heart disease with heart failure; I25.2 Old myocardial infarction; I44.7 Left bundle-branch block, unspecified; J45.909 Unspecified asthma, uncomplicated; Z79.82 Long term (current) use of aspirin; Z79.899 Other long term (current) drug therapy; Z82.49 Family history of ischemic heart disease and other diseases of the circulatory system; Z90.49 Acquired absence of other specified parts of digestive tract; Z90.710 Acquired absence of both cervix and uterus; Z88.8 Allergy status to other drugs, medicaments and biological substances; Z88.2 Allergy status to sulfonamides; Z88.1 Allergy status to other antibiotic agents; Z91.040 Latex allergy status; Z88.5 Allergy status to narcotic agent; Z71.6 Tobacco abuse counseling; Z98.51 Tubal ligation status
CPT/HCPCS: 36415; 71046; 80053; 83735; 84443; 84484; 85025; 85610; 85730; 93005; 93306; 96361; 96365; 96366; 96374; 96375; 96376; 99291

== ENCOUNTER 2021-12-31 03:47 | Observation (INO) | payer OTHER ==
[2021-12-31] MEDS ORDERED: DILTIAZEM DRIP BOLUS FROM BAG 1 MG SOLN IV ONE ×2 (04:07→06:31)
--- NOTE | 2021-12-31 04:12 | ED ---
Arrhythmia/Palpitations HPI - General Stated Complaint: chest pain Time Seen by Provider: 12/31/21 03:52 Limitations: no limitations - History of Present Illness Initial Comments: This patient is a 51-year-old woman with history of atrial fibrillation who presents with complaint that she believes she has gone into A. fib with RVR. Patient states she thinks that she "overdid it" yesterday. She states that symptoms came on tonight at rest. She started having palpitations, and then later than evening chest pressure. She has not had other anginal type symptoms. MD Complaint: rapid heart beat Context: occurred during rest Arrhythmia History: atrial fibrillation Associated Symptoms: chest pain Treatments Prior to Arrival: beta-benny - Related Data Previous Rx's Medication Instructions Recorded Losartan [Cozaar] 50 mg PO DAILY #30 tab 08/01/21 Metoprolol Succinate (ER) [Toprol 50 mg PO DAILY #30 tab 08/01/21 XL] Rivaroxaban [Xarelto] 20 mg PO W/SUPPER #30 tab 01/01/22 Spironolactone [Aldactone] 25 mg PO DAILY #30 tab 01/01/22 Allergies Allergy/AdvReac Type Severity Reaction Status Date / Time latex Allergy Dyspnea/Bret Verified 12/31/21 12:13 h/Hives morphine Allergy Unknown Verified 12/31/21 12:13 ofloxacin [From Floxin] Allergy Swelling Verified 12/31/21 12:13 of Ear Drums Sulfa (Sulfonamide Allergy Swelling Verified 12/31/21 12:13 Antibiotics) sulfamethoxazole Allergy Swelling Verified 12/31/21 12:13 [From Bactrim] trimethoprim [From Bactrim] Allergy Swelling Verified 12/31/21 12:13 nifedipine [From Procardia] AdvReac Increased Verified 12/31/21 12:13 Blood Pressure olmesartan medoxomil AdvReac Decreased Verified 12/31/21 12:13 [From Benicar] Heart Rate berries Allergy Rash/Hives Uncoded 12/31/21 12:13 nuts Allergy Rash/Hives Uncoded 12/31/21 12:13 Review of Systems ROS Statement: Those systems with pertinent positive or pertinent negative responses have been documented in the HPI. ROS Other: All systems not noted in ROS Statement are negative. Constitutional: Denies: fever, chills Respiratory: Reports: dyspnea. Denies: cough Cardiovascular: Reports: chest pain, palpitations. Denies: edema, syncope Gastrointestinal: Denies: abdominal pain, nausea, vomiting Genitourinary: Denies: dysuria, hematuria Musculoskeletal: Denies: back pain Skin: Denies: rash Neurological: Denies: headache, weakness Past Medical History Past Medical History: Atrial Fibrillation, Asthma, Hypertension, Myocardial Infarction ([place]) Additional Past Medical History / Comment(s): migraines, Last Myocardial Infarction Date:: 2017 History of Any Multi-Drug Resistant Organisms: None Reported Past Surgical History: Cholecystectomy, Ear Surgery, Hysterectomy, Tubal Ligation Additional Past Surgical History / Comment(s): carpal tunnel, cone biopsy, core biopsy Past Anesthesia/Blood Transfusion Reactions: No Reported Reaction Past Psychological History: Anxiety Smoking Status: Current every day smoker Past Alcohol Use History: None Reported Additional Past Alcohol Use History / Comment(s): Patient is a smoker of less than a pack per day since she was 11 years of age. She also smokes marijuana 3 times per day. She denies any alcohol use or any other street drug use. Past Drug Use History: Marijuana - Past Family History Father Family Medical History: No Reported History Additional Family Medical History / Comment(s): Father is alive at age 69 with h istory of hypertension. Mother Additional Family Medical History / Comment(s): Mother is alive at age 65 with history of rheumatoid arthritis. Sister(s) Additional Family Medical History / Comment(s): Patient has one sister that was "born crippled.". Patient has 3 children ages 28, 23 and 20 with no major medical problems. General Exam General appearance: alert, in no apparent distress Head exam: Present: atraumatic, normocephalic Eye exam: Present: normal appearance. Absent: scleral icterus, conjunctival injection Neck exam: Present: normal inspection Respiratory exam: Present: normal lung sounds bilaterally. Absent: respiratory distress, wheezes, rales, rhonchi, stridor, chest wall tenderness, accessory muscle use Cardiovascular Exam: Present: tachycardia, irregular rhythm, normal heart sounds. Absent: systolic murmur, diastolic murmur, rubs, gallop GI/Abdominal exam: Present: soft. Absent: distended, tenderness, guarding, rebo und, rigid, mass Extremities exam: Present: normal inspection, normal capillary refill. Absent: pedal edema, calf tenderness Back exam: Present: normal inspection. Absent: CVA tenderness (R), CVA tenderness (L) Neurological exam: Present: alert Skin exam: Present: warm, dry, intact, normal color. Absent: rash Course Vital Signs 12/31/21 12/31/21 12/31/21 04:05 05:30 06:00 Temperature 97.7 F Pulse Rate 142 H 142 H 126 H Respiratory 22 20 20 Rate Blood Pressure 134/109 141/88 111/92 O2 Sat by Pulse 97 94 L 94 L Oximetry 12/31/21 12/31/21 06:31 07:00 Temperature Pulse Rate 138 H 142 H Respiratory 22 Rate Blood Pressure 120/70 104/90 O2 Sat by Pulse 93 L Oximetry Medical Decision Making - Lab Data Result diagrams: 01/01/22 08:30 01/01/22 08:30 Lab Results 12/31/21 12/31/21 12/31/21 Range/Units 04:20 04:20 04:20 WBC 11.8 H (3.8-10.6) k/uL RBC 5.64 H (3.80-5.40) m/uL Hgb 16.9 H (11.4-16.0) gm/dL Hct 52.2 H (34.0-46.0) % MCV 92.6 (80.0-100.0) fL MCH 29.9 (25.0-35.0) pg MCHC 32.3 (31.0-37.0) g/dL RDW 12.8 (11.5-15.5) % Plt Count 264 (150-450) k/uL MPV 9.3 Neutrophils % 77 % Lymphocytes % 19 % Monocytes % 2 % Eosinophils % 1 % Basophils % 1 % Neutrophils # 9.1 H (1.3-7.7) k/uL Lymphocytes # 2.2 (1.0-4.8) k/uL Monocytes # 0.2 (0-1.0) k/uL Eosinophils # 0.2 (0-0.7) k/uL Basophils # 0.1 (0-0.2) k/uL PT 10.5 (9.0-12.0) sec INR 1.0 (<1.2) APTT 27.0 (22.0-30.0) sec Sodium 138 (137-145) mmol/L Potassium 3.6 (3.5-5.1) mmol/L Chloride 105 (98-107) mmol/L Carbon Dioxide 20 L (22-30) mmol/L Anion Gap 13 mmol/L BUN 11 (7-17) mg/dL Creatinine 0.80 (0.52-1.04) mg/dL Est GFR (CKD-EPI)AfAm >90 (>60 ml/min/1.73 sqM) Est GFR (CKD-EPI)NonAf 87 (>60 ml/min/1.73 sqM) Glucose 159 H (74-99) mg/dL Estimated Ave Glu mg/dL Hemoglobin A1c (0.0-6.0) % Calcium 8.7 (8.4-10.2) mg/dL Magnesium 1.6 (1.6-2.3) mg/dL Total Bilirubin 0.4 (0.2-1.3) mg/dL AST 24 (14-36) U/L ALT 19 (4-34) U/L Alkaline Phosphatase 85 (38-126) U/L Troponin I (0.000-0.034) ng/mL Total Protein 6.2 L (6.3-8.2) g/dL Albumin 3.8 (3.5-5.0) g/dL Procalcitonin (0.02-0.09) ng/mL TSH 2.310 (0.465-4.680) mIU/L 12/31/21 12/31/21 12/31/21 Range/Units 04:20 04:20 04:20 WBC (3.8-10.6) k/uL RBC (3.80-5.40) m/uL Hgb (11.4-16.0) gm/dL Hct (34.0-46.0) % MCV (80.0-100.0) fL MCH (25.0-35.0) pg MCHC (31.0-37.0) g/dL RDW (11.5-15.5) % Plt Count (150-450) k/uL MPV Neutrophils % % Lymphocytes % % Monocytes % % Eosinophils % % Basophils % % Neutrophils # (1.3-7.7) k/uL Lymphocytes # (1.0-4.8) k/uL Monocytes # (0-1.0) k/uL Eosinophils # (0-0.7) k/uL Basophils # (0-0.2) k/uL PT (9.0-12.0) sec INR (<1.2) APTT (22.0-30.0) sec Sodium (137-145) mmol/L Potassium (3.5-5.1) mmol/L Chloride (98-107) mmol/L Carbon Dioxide (22-30) mmol/L Anion Gap mmol/L BUN (7-17) mg/dL Creatinine (0.52-1.04) mg/dL Est GFR (CKD-EPI)AfAm (>60 ml/min/1.73 sqM) Est GFR (CKD-EPI)NonAf (>60 ml/min/1.73 sqM) Glucose (74-99) mg/dL Estimated Ave Glu mg/dL 125 Hemoglobin A1c 6.0 (0.0-6.0) % Calcium (8.4-10.2) mg/dL Magnesium (1.6-2.3) mg/dL Total Bilirubin (0.2-1.3) mg/dL AST (14-36) U/L ALT (4-34) U/L Alkaline Phosphatase (38-126) U/L Troponin I <0.012 (0.000-0.034) ng/mL Total Protein (6.3-8.2) g/dL Albumin (3.5-5.0) g/dL Procalcitonin 0.05 (0.02-0.09) ng/mL TSH (0.465-4.680) mIU/L Critical Care Time Critical Care Time: Yes (30 minutes) Disposition Clinical Impression: Atrial fibrillation with RVR Disposition: ADMITTED IP TO THIS HOSP Condition: Fair Is patient prescribed a controlled substance at d/c from ED?: No
[2021-12-31] MEDS ORDERED: DILTIAZEM 125 MG in SODIUM CHLORIDE 0.9% 100 ML IV SCH (04:15)
[2021-12-31 04:40] LABS: Basophils # (A) 0.1 k/uL (0-0.2); Basophils % (A) 1 %; Eosinophils # (A) 0.2 k/uL (0-0.7); Eosinophils % (A) 1 %; HCT 52.2 % (34.0-46.0); HGB 16.9 gm/dL (11.4-16.0); Lymphocytes # (A) 2.2 k/uL (1.0-4.8); Lymphocytes % (A) 19 %; MCH 29.9 pg (25.0-35.0); MCHC 32.3 g/dL (31.0-37.0); MCV 92.6 fL (80.0-100.0); Mean Platelet Volume 9.3; Monocytes # (A) 0.2 k/uL (0-1.0); Monocytes % (A) 2 %; Neutrophils # (A) 9.1 k/uL (1.3-7.7); Neutrophils % (A) 77 %; Platelet Count 264 k/uL (150-450); RBC 5.64 m/uL (3.80-5.40); RDW 12.8 % (11.5-15.5); WBC 11.8 k/uL (3.8-10.6)
--- NOTE | 2021-12-31 04:42 | XR ---
EXAMINATION TYPE: XR chest 1V portable DATE OF EXAM: 12/31/2021 COMPARISON: 07/29/2021 HISTORY: Dysrhythmia TECHNIQUE: FINDINGS: Heart and mediastinum are normal. Lungs are clear. Diaphragm is normal. Bony thorax is inta ct. There are chest leads. IMPRESSION: No active cardiopulmonary disease. No change.
[2021-12-31 04:50] LABS: Prothrombin Time 10.5 sec (9.0-12.0)
[2021-12-31 04:51] LABS: ALT 19 U/L (4-34); AST 24 U/L (14-36); African American GFR (CKD) >90 (>60 ml/min/1.73 sqM); Albumin 3.8 g/dL (3.5-5.0); Alkaline Phosphatase 85 U/L (38-126); Anion Gap 13 mmol/L; Blood Urea Nitrogen 11 mg/dL (7-17); Calcium 8.7 mg/dL (8.4-10.2); Carbon Dioxide 20 mmol/L (22-30); Chloride 105 mmol/L (98-107); Glucose 159 mg/dL (74-99); Magnesium 1.6 mg/dL (1.6-2.3); Non-African American GFR(CKD) 87 (>60 ml/min/1.73 sqM); Potassium 3.6 mmol/L (3.5-5.1); Sodium 138 mmol/L (137-145); Total Bilirubin 0.4 mg/dL (0.2-1.3); Total Protein 6.2 g/dL (6.3-8.2)
[2021-12-31] MEDS ORDERED: NITROGLYCERIN SL TABS 0.4 MG TAB SUBLINGUAL PRN (06:31)
[2021-12-31 07:02] LABS: Appearance,Urine Clear (Clear); Bilirubin,Urine Negative (Negative); Blood,Urine Negative (Negative); Color,Urine Colorless; Glucose,Urine (UA) Negative (Negative); Ketones,Urine Negative (Negative); Leukocyte Esterase,Urine Negative (Negative); Nitrite,Urine Negative (Negative); PH, Urine 7.5 (5.0-8.0); Protein,Urine Negative (Negative); Specific Gravity,Urine 1.005 (1.001-1.035); Urobilinogen,Urine <2.0 mg/dL (<2.0)
[2021-12-31 07:13] LABS: Amphetamine Screen,Urine Not Detected (NotDetected); Barbiturate Screen,Urine Not Detected (NotDetected); Benzodiazepines Screen,Urine Not Detected (NotDetected); Cocaine Screen,Urine Not Detected (NotDetected); Methadone Screen, Urine Not Detected (NotDetected); Opiate Screen,Urine Not Detected (NotDetected); Oxycodone Screen, Urine Not Detected (NotDetected); Phencyclidine Screen,Urine Not Detected (NotDetected); Tricyclic Antidepressant,Urine Not Detected (NotDetected); Urn Cannabinoid Scrn Detected (NotDetected)
[2021-12-31] MEDS ORDERED: METOPROLOL SUCCINATE (ER) 50 MG TAB.ER.24H PO STA (10:35)
[2021-12-31] MEDS: SPIRONOLACTONE 25 MG TAB PO SCH (11:16)
--- NOTE | 2021-12-31 11:23 | P.HPIM ---
History of Present Illness This is a pleasant 51 years old female with past medical history of atrial fibrillation, hypertension, asthma, coronary artery disease. Patient says that she was working in her house cleaning her kitchen, and in the evening when she went to his she started having dizziness with headache and nausea vomiting, she was vomiting contributed leg from 11 PM total 3:00 in the morning. Also she's been having cold symptoms sneezing and coughing with with phlegm but did not bring stuff up this time. Also she is complaining of from frontal sinusitis as she describes. She denies any dyspnea, no chest discomfort: No weakness or numbness or blurred vision or slurred speech. Patient states that she was tested negative workup at that time and all her family members were also tested, not sure of the bursectomy. She smokes about half pack to one pack per day, she was counseled to quit but she declines. She drinks a few and uses marijuana. She's been crying and stating that she is depressed but she denies any suicidal or homicidal ideation. She refused to take antidepression medication and I offered to ask psychiatrist to see her but she declines. Patient states that she has history of depression and anxiety and PTSD. Patient says that she has a normal bowel movement On admission patient was tachycardic 142, currently 56. Blood pressure 128/90. There is some vitals are stable and patient is afebrile. Labs showed mild leukocytosis of 11.8 and hemoglobin 16.9 and platelets 264, supple looks concentrated. INR is 1.0. occluding BMP and liver enzymes were unremarkable. On attempt are negative less than 0.012. TSH normal 2.3 and urinalysis is not suspicious for infection. Urine drug screen Is positive for marijuana EKG: Normal sinus rhythm at [address]-T changes. Patient is started on Cardizem drip Review of Systems Review of systems CONSTITUTIONAL: No fever, no malaise, no fatigue. HEENT: No recent visual problems or hearing problems. Denied any sore throat. CARDIOVASCULAR: No orthopnea, PND, no palpitations, no syncope. PULMONARY: No shortness of breath, no cough, no hemoptysis. GASTROINTESTINAL: No diarrhea, no nausea, no vomiting, no abdominal pain. Normoactive bowel sounds. NEUROLOGICAL: No headaches, no weakness, no numbness. HEMATOLOGICAL: Denies any bleeding or petechiae. GENITOURINARY: Denies any burning micturition, frequency, or urgency. MUSCULOSKELETAL/RHEUMATOLOGICAL: Denies any joint pain, swelling, or any muscle pain. ENDOCRINE: Denies any polyuria or polydipsia. Past Medical History Past Medical History: Atrial Fibrillation, Asthma, Hypertension, Myocardial Infarction ([place]) Additional Past Medical History / Comment(s): migraines, Last Myocardial Infarction Date:: 2017 History of Any Multi-Drug Resistant Organisms: None Reported Past Surgical History: Cholecystectomy, Ear Surgery, Hysterectomy, Tubal Ligation Additional Past Surgical History / Comment(s): carpal tunnel, cone biopsy, core biopsy Past Anesthesia/Blood Transfusion Reactions: No Reported Reaction Additional Past Anesthesia/Blood Transfusion Reaction / Comment(s): Emesis after anesthesia Past Psychological History: Anxiety Smoking Status: Current every day smoker Past Alcohol Use History: None Reported Additional Past Alcohol Use History / Comment(s): Patient is a smoker of less than a pack per day since she was 11 years of age. She also smokes marijuana 3 times per day. She denies any alcohol use or any other street drug use. Past Drug Use History: Marijuana - Past Family History Father Family Medical History: No Reported History Additional Family Medical History / Comment(s): Father is alive at age 69 with history of hypertension. Mother Additional Family Medical History / Comment(s): Mother is alive at age 65 with history of rheumatoid arthritis. Sister(s) Additional Family Medical History / Comment(s): Patient has one sister that was "born crippled.". Patient has 3 children ages 28, 23 and 20 with no major medical problems. Medications and Allergies Home Medications Medication Instructions Recorded Confirmed Type Aspirin 325 mg PO DAILY tab 08/01/21 Rx Losartan [Cozaar] 50 mg PO DAILY #30 tab 08/01/21 Rx Metoprolol Succinate (ER) [Toprol 50 mg PO DAILY #30 tab 08/01/21 Rx Xl] Allergies Allergy/AdvReac Type Severity Reaction Status Date / Time latex Allergy Dyspnea/Bret Verified 07/29/21 21:24 h/Hives morphine Allergy Unknown Verified 07/29/21 21:24 ofloxacin [From Floxin] Allergy Swelling Verified 07/29/21 21:24 of Ear Drums Sulfa (Sulfonamide Allergy Swelling Verified 07/29/21 21:24 Antibiotics) sulfamethoxazole Allergy Swelling Verified 07/29/21 21:24 [From Bactrim] trimethoprim [From Bactrim] Allergy Swelling Verified 07/29/21 21:24 nifedipine [From Procardia] AdvReac Increased Verified 07/29/21 21:24 Blood Pressure olmesartan medoxomil AdvReac Decreased Verified 07/29/21 21:24 [From Benicar] Heart Rate berries Allergy Rash/Hives Uncoded 07/29/21 21:24 nuts Allergy Rash/Hives Uncoded 07/29/21 21:24 Physical Exam Vitals: Vital Signs Temp Pulse Pulse Resp BP BP Pulse Ox 12/31/21 08:25 56 L 128/90 96 12/31/21 07:00 142 H 22 104/90 12/31/21 06:31 138 H 120/70 93 L 12/31/21 06:00 126 H 20 111/92 94 L 12/31/21 05:30 142 H 20 141/88 94 L 12/31/21 04:05 97.7 F 142 H 22 134/109 97 Intake and Output 12/30/21 12/31/21 12/31/21 22:59 06:59 14:59 Other: Weight 113.398 kg 113.398 kg -GENERAL: The patient is alert and oriented x3, not in any acute distress. Obese -HEENT: Pupils are round and equally reacting to light. EOMI. No scleral icterus. No conjunctival pallor. Normocephalic, atraumatic. No pharyngeal erythema. No thyromegaly. Global left frontal tenderness. Congested nasal mucous membranes CARDIOVASCULAR: S1 and S2 present. No murmurs, rubs, or gallops. PULMONARY: Chest is clear to auscultation, no wheezing or crackles. ABDOMEN: Soft, nontender, nondistended, normoactive bowel sounds. No palpable organomegaly. MUSCULOSKELETAL: No joint swelling or deformity. EXTREMITIES: No cyanosis, clubbing, or pedal edema. NEUROLOGICAL: Gross neurological examination did not reveal any focal deficits. SKIN: No rashes. no petechiae. Results CBC & Chem 7: 12/31/21 04:20 12/31/21 04:20 Labs: Abnormal Lab Results - Last 24 Hours (Table) 12/31/21 12/31/21 12/31/21 Range/Units 04:20 04:20 06:45 WBC 11.8 H (3.8-10.6) k/uL RBC 5.64 H (3.80-5.40) m/uL Hgb 16.9 H (11.4-16.0) gm/dL Hct 52.2 H (34.0-46.0) % Neutrophils # 9.1 H (1.3-7.7) k/uL Carbon Dioxide 20 L (22-30) mmol/L Glucose 159 H (74-99) mg/dL Total Protein 6.2 L (6.3-8.2) g/dL U Marijuana (THC) Screen Detected H (NotDetected) Thrombosis Risk Factor Assmnt - Choose All That Apply Any of the Below Risk Factors Present?: Yes Each Factor Represents 1 point: Age 41-60 years Other Risk Factors: No Other congenital or acquired thrombophilia - If yes, enter type in comment: No Thrombosis Risk Factor Assessment Total Risk Factor Score: 1 Thrombosis Risk Factor Assessment Level: Low Risk Assessment and Plan Assessment: Atrial fibrillation with RVR Sinusitis Common cold symptoms, rule out covid or influenza Nausea and vomiting. Most likely viral gastroenteritis Nicotine dependence Substance abuse with marijuana Hypertension History of coronary artery disease and History of asthma, not an active issue. History of migraine Morbid obesity with 38 BMI Plan: This is a pleasant 51 years old female who presents with A. fib and RVR. Continue with Cardizem drip Cardiology consult was stuck to the patient on Xarelto. Risk of bleeding are explained for the patient . check KUB Patient counseled to quit smoking, she declines. Labs and medication were reviewed.. Continue same treatment. Continue with symptomatic treatment. Resume home medication. Monitor lytes and vitals. DVT and GI prophylaxis. Further recommendations as per clinical course of the patient DVT prophylaxis: Xarelto GI Prophylaxis: Pepcid Prognosis is guarded
--- NOTE | 2021-12-31 13:13 | P.CRDCN ---
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 She has a known history of paroxysmal atrial fibrillation, not on anticoagulation, cardiomyopathy with most recent echocardiogram in July of this year showing fairly impaired LV systolic function with ejection fraction of about 35% with anteroseptal kinesis and mild anterior wall hypokinesia, hypertension, hyperlipidemia, obstructive sleep apnea for which she could not tolerate the CPAP. Remote history of drug abuse with crack and cocaine which she has abstained from. She is a current smoker and struggles to quit. Denies alcohol use. Limits caffeine rarely consuming at this point. Presented to the emergency department with complaints of dizziness and feeling her heart racing and she felt as if she was in atrial fibrillation. EMS records confirm atrial fibrillation with rapid ventricular response. She apparently been cleaning her kitchen did have a cup of coffee which she normally does not consume inserted feeling unwell with dizziness and some nausea and rapid heart rate. At home she was on metoprolol succinate 50 mg daily as well as losartan 50 mg daily and aspirin which she's been taking regularly. She had been recommended in July and anticoagulation however at that time was discharged only on aspirin. She is apparently had issues with cost of anticoagulants in the past. Upon examination she is resting comfortably in bed. She is feeling a bit better. Complains of a cough with some wheezing and does have a history of asthma. She is currently maintaining sinus mechanism. She has an underlying left bundle-branch block wh ich has been noted in the past. Troponins have been negative. Renal function is normal. Labs show an elevated white blood cell count, RBC, hemoglobin and hematocrit. Past Medical History Past Medical History: Atrial Fibrillation, Asthma, Hypertension, Myocardial Infarction (CT) Additional Past Medical History / Comment(s): migraines, Last Myocardial Infarction Date:: 2017 History of Any Multi-Drug Resistant Organisms: None Reported Past Surgical History: Cholecystectomy, Ear Surgery, Hysterectomy, Tubal Ligation Additional Past Surgical History / Comment(s): carpal tunnel, cone biopsy, core biopsy Past Anesthesia/Blood Transfusion Reactions: No Reported Reaction Additional Past Anesthesia/Blood Transfusion Reaction / Comment(s): Emesis after anesthesia Past Psychological History: Anxiety Smoking Status: Current every day smoker Past Alcohol Use History: None Reported Additional Past Alcohol Use History / Comment(s): Patient is a smoker of less than a pack per day since she was 11 years of age. She also smokes marijuana 3 times per day. She denies any alcohol use or any other street drug use. Past Drug Use History: Marijuana - Past Family History Father Family Medical History: No Reported History Additional Family Medical History / Comment(s): Father is alive at age 69 with history of hypertension. Mother Additional Family Medical History / Comment(s): Mother is alive at age 65 with history of rheumatoid arthritis. Sister(s) Additional Family Medical History / Comment(s): Patient has one sister that was "born crippled.". Patient has 3 children ages 28, 23 and 20 with no major medical problems. Medications and Allergies Home Medications Medication Instructions Recorded Confirmed Type Aspirin 325 mg PO DAILY tab 08/01/21 12/31/21 Rx Losartan [Cozaar] 50 mg PO DAILY #30 tab 08/01/21 12/31/21 Rx Metoprolol Succinate (ER) [Toprol 50 mg PO DAILY #30 tab 08/01/21 12/31/21 Rx Xl] Allergies Allergy/AdvReac Type Severity Reaction Status Date / Time latex Allergy Dyspnea/Bret Verified 12/31/21 12:13 h/Hives morphine Allergy Unknown Verified 12/31/21 12:13 ofloxacin [From Floxin] Allergy Swelling Verified 12/31/21 12:13 of Ear Drums Sulfa (Sulfonamide Allergy Swelling Verified 12/31/21 12:13 Antibiotics) sulfamethoxazole Allergy Swelling Verified 12/31/21 12:13 [From Bactrim] trimethoprim [From Bactrim] Allergy Swelling Verified 12/31/21 12:13 nifedipine [From Procardia] AdvReac Increased Verified 12/31/21 12:13 Blood Pressure olmesartan medoxomil AdvReac Decreased Verified 12/31/21 12:13 [From Benicar] Heart Rate berries Allergy Rash/Hives Uncoded 12/31/21 12:13 nuts Allergy Rash/Hives Uncoded 12/31/21 12:13 Physical Exam Vitals: Vital Signs Temp Pulse Pulse Resp BP BP Pulse Ox 12/31/21 11:58 65 167/88 96 09/25/22 08:25 56 L 128/90 96 12/31/21 07:00 142 H 22 104/90 12/31/21 06:31 138 H 120/70 93 L 12/31/21 06:00 126 H 20 111/92 94 L 12/31/21 05:30 142 H 20 141/88 94 L 12/31/21 04:05 97.7 F 142 H 22 134/109 97 Intake and Output 12/30/21 12/31/21 12/31/21 22:59 06:59 14:59 Intake Total 540 Balance 540 Intake: Oral 540 Other: Weight 113.398 kg 113.398 kg PHYSICAL EXAMINATION: This is a 51-year-old female in no apparent distress at the time of my examination. VITAL SIGNS: Blood pressure 128/90, heart rate 56, respirations 22, temp 97.7F. Patient is 96 % on where. HEENT: Head is atraumatic, normocephalic. Pupils are equal, round. Sclerae anicteric. Conjunctivae are clear. Mucous membranes of the mouth are moist. Neck is supple. There is no elevated jugular venous pressure. No carotid bruit is heard. CHEST EXAMINATION: Clear to auscultation bilaterally. No wheezes rales or rhonchi. Respirations even and nonlabored. HEART EXAMINATION: Heart regular, positive S1 and S2. No S3. No S4. With a systolic murmur. ABDOMEN: Soft, nontender. Bowel sounds are heard. No organomegaly noted. EXTREMITIES: 2+ peripheral pulses with no evidence of peripheral edema and no calf tenderness noted. NEUROLOGIC EXAMINATION: Patient is awake, alert and oriented x3. Results 12/31/21 04:20 12/31/21 04:20 Cardiac Enzymes 12/31/21 12/31/21 12/31/21 Range/Units 04:20 04:20 08:16 AST 24 (14-36) U/L Troponin I <0.012 <0.012 (0.000-0.034) ng/mL 12/31/21 Range/Units 10:11 AST (14-36) U/L Troponin I <0.012 (0.000-0.034) ng/mL Coagulation 12/31/21 Range/Units 04:20 PT 10.5 (9.0-12.0) sec APTT 27.0 (22.0-30.0) sec CBC 12/31/21 Range/Units 04:20 WBC 11.8 H (3.8-10.6) k/uL RBC 5.64 H (3.80-5.40) m/uL Hgb 16.9 H (11.4-16.0) gm/dL Hct 52.2 H (34.0-46.0) % Plt Count 264 (150-450) k/uL Comprehensive Metabolic Panel 12/31/21 Range/Units 04:20 Sodium 138 (137-145) mmol/L Potassium 3.6 (3.5-5.1) mmol/L Chloride 105 (98-107) mmol/L Carbon Dioxide 20 L (22-30) mmol/L BUN 11 (7-17) mg/dL Creatinine 0.80 (0.52-1.04) mg/dL Glucose 159 H (74-99) mg/dL Calcium 8.7 (8.4-10.2) mg/dL AST 24 (14-36) U/L ALT 19 (4-34) U/L Alkaline Phosphatase 85 (38-126) U/L Total Protein 6.2 L (6.3-8.2) g/dL Albumin 3.8 (3.5-5.0) g/dL Current Medications Generic Name Dose Route Start Last Admin Trade Name Freq PRN Reason Stop Dose Admin Famotidine 20 mg 12/31/21 21:00 Famotidine 20 Mg/2 Ml Vial IV Q12HR ON LICENSE OF [facility] Losartan Potassium 50 mg 01/01/22 09:00 Losartan 50 Mg Tab PO DAILY ON LICENSE OF [facility] Meclizine HCl 25 mg 12/31/21 11:51 Meclizine 25 Mg Tab PO TID PRN Vertigo Metoprolol Succinate 50 mg 01/01/22 09:00 Metoprolol Succinate (Er) 50 Mg Tab.Er.24h PO DAILY ON LICENSE OF [facility] Nitroglycerin 0.4 mg 12/31/21 06:31 Nitroglycerin Sl Tabs 0.4 Mg Tab SUBLINGUAL Q5M PRN Chest Pain Rivaroxaban 20 mg 12/31/21 17:30 Rivaroxaban 20 Mg Tab PO W/SUPPER ON LICENSE OF [facility] Protocol Spironolactone 25 mg 12/31/21 10:30 12/31/21 11:16 Spironolactone 25 Mg Tab PO 25 mg DAILY ON LICENSE OF [facility] Administration Intake and Output 12/30/21 12/31/21 12/31/21 22:59 06:59 14:59 Intake Total 540 Balance 540 Intake: Oral 540 Other: Weight 113.398 kg 113.398 kg Patient Weight 01/01/22 06:59 Weight 113.398 kg 12/31/21 04:20 12/31/21 04:20 EKG Interpretations (text) Sinus rhythm with left bundle branch block Assessment and Plan Assessment: #1 paroxysmal atrial fibrillation with rapid ventricular response #2 cardiomyopathy #3 left bundle branch block #4 hypertension #5 obstructive sleep apnea unable to tolerate CPAP #6 nicotine dependence Plan: From cardiology's perspective we did have a long discussion with the patient in regards to the rationale including risks and benefits of anticoagulation. She is willing to start anticoagulation and we will add Xarelto 20 mg daily. We will resume home metoprolol and losartan. We will add Aldactone. The patient will require further cardiac workup to rule out underlying ischemia as an outpatient. She will likely require biventricular ICD due to underlying severe cardiomyopathy and left bundle branch block. We will continue to follow the patient and provide further recommendations accordingly. BREAKER OILER note has been reviewed, I agree with a documented findings and plan of care. Patient was seen and examined.
--- NOTE | 2021-12-31 14:09 | US ---
EXAMINATION TYPE: US carotid duplex BILAT DATE OF EXAM: 12/31/2021 COMPARISON: NONE CLINICAL HISTORY: CALVILLO, vertigo. TECHNIQUE: Carotid duplex ultrasound examination. Indirect Doppler criteria was utilized. FINDINGS: EXAM MEASUREMENTS: RIGHT: Peak Systolic Velocity (PSV) cm/sec ----- Right CCA: 68.8 ----- Right ICA: 87.5 ----- Right ECA: 180.6 ICA/CCA ratio: 1.3 RIGHT: End Diastole cm/sec ----- Right CCA: 25.9 ----- Right ICA: 32.5 ----- Right ECA: 22.9 LEFT: Peak Systolic Velocity (PSV) cm/sec ----- Left CCA: 99.1 ----- Left ICA: 177.9 ----- Left ECA: 147.8 ICA/CCA ratio: 1.8 LEFT: End Diastole cm/sec ----- Left CCA: 34.4 ----- Left ICA: 63.6 ----- Left ECA: 27.0 VERTEBRALS (direction of flow): Right Vertebral: Antegrade Left Vertebral: Antegrade Rhythm: Normal FLATWORK CATCHER NOTES: Mild to moderate atherosclerotic changes with mild velocity increase seen in left ICA and bilateral ECA's IMPRESSION: 1. Minimal plaque formation in the right common and internal carotid artery with less than 50% stenos is. 2. Moderate plaque formation of the left carotid bifurcation and proximal internal carotid artery wit h peak systolic velocity and ratios indicating moderate 50-69% stenosis. Criteria for Assigning % of Stenosis / Diameter reduction (Estimation based on the indirect measurements of the internal carotid artery velocities (ICA PSV). 1. Normal (no stenosis)=ICA PSV < 125 cm/s: ratio < 2.0: ICA EDV<40 cm/s. 2. Less than 50% stenosis=ICA PSV < 125 cm/s: ratio < 2.0: ICA EDV<40 cm/s. 3. 50 to 69% stenosis=ICA PSV of 125 to 230 cm/s: ration 2.0 ? 4.0: ICA EDV 40-100 cm/s. 4. Greater than 70% stenosis to near occlusion= ICA PSV > 230 cm/s: ratio > 4.0: ICA EDV > 100 cm/s. 5. Near occlusion= ICA PSV velocities may be low or undetectable: variable ratio and ICA EDV. 6. Total occlusion=unable to detect flow.
[2021-12-31] MEDS: MECLIZINE 25 MG TAB PO PRN (14:37)
--- NOTE | 2021-12-31 14:42 | CT ---
EXAMINATION TYPE: CT brain wo con DATE OF EXAM: 12/31/2021 COMPARISON: None HISTORY: headaches and dizziness, no head injury CT DLP: 1146.4 mGycm. Automated Exposure Control for Dose Reduction was Utilized. TECHNIQUE: CT scan of the head is performed without contrast. FINDINGS: The ventricles, basal cisterns and sulci over the convexities are within normal limits and there is n o mass effect or shift of midline structures. No abnormal density is seen throughout the brain parenchyma. There is no acute intra or extra-axial h emorrhage. The posterior fossa including the brainstem, fourth ventricle and cerebellar pontine angles appear gr ossly normal. The intraorbital contents appear normal and symmetric. There are mild chronic inflammatory changes in the maxillary sinuses. The frontal sinuses are hypopla stic. The right mastoid air cells and middle ear cavity are opacified with fluid. The left mastoid air cell s and middle ear cavities are well aerated. IMPRESSION: 1. No evidence of acute bleed or mass effect. 2. Fluid opacification of the right mastoid air cells and middle ear cavity. 3. Mild chronic inflammatory changes in the maxillary sinuses
[2021-12-31] MEDS: RIVAROXABAN 20 MG TAB PO SCH (16:49)
[2021-12-31] MEDS ORDERED: ONDANSETRON 4 MG/2 ML VIAL IVP PRN (16:54)
[2021-12-31] MEDS ORDERED: IPRATROPIUM-ALBUTEROL 3 ML NEB INHALATION PRN (16:56)
[2021-12-31] MEDS: guaiFENesin SYRUP 100MG/5ML 200 MG/10 ML CUP PO PRN (17:06)
[2021-12-31] MEDS: FAMOTIDINE 20 MG/2 ML VIAL IV SCH (22:54)
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
[2022-01-01] MEDS ORDERED: LOSARTAN 50 MG TAB PO SCH (09:00)
[2022-01-01] MEDS ORDERED: ASPIRIN 325 MG TAB PO SCH (09:00)
[2022-01-01] MEDS ORDERED: METOPROLOL SUCCINATE (ER) 50 MG TAB.ER.24H PO SCH (09:00)
[2022-01-01] MEDS: FAMOTIDINE 20 MG/2 ML VIAL IV SCH (09:30)
[2022-01-01] MEDS: MECLIZINE 25 MG TAB PO PRN (09:31)
[2022-01-01] MEDS: guaiFENesin SYRUP 100MG/5ML 200 MG/10 ML CUP PO PRN (09:31)
[2022-01-01] MEDS: SPIRONOLACTONE 25 MG TAB PO SCH (09:31)
[2022-01-01 09:33] LABS: HCT 45.5 % (34.0-46.0); HGB 14.5 gm/dL (11.4-16.0); MCH 29.9 pg (25.0-35.0); MCHC 31.8 g/dL (31.0-37.0); MCV 94.2 fL (80.0-100.0); Platelet Count 206 k/uL (150-450); RBC 4.83 m/uL (3.80-5.40); RDW 12.9 % (11.5-15.5); WBC 9.2 k/uL (3.8-10.6)
[2022-01-01 10:02] LABS: African American GFR (CKD) 87 (>60 ml/min/1.73 sqM); Anion Gap 10 mmol/L; Blood Urea Nitrogen 8 mg/dL (7-17); Calcium 9.1 mg/dL (8.4-10.2); Carbon Dioxide 27 mmol/L (22-30); Chloride 102 mmol/L (98-107); Glucose 100 mg/dL (74-99); Non-African American GFR(CKD) 76 (>60 ml/min/1.73 sqM); Sodium 139 mmol/L (137-145)
--- NOTE | 2022-01-01 11:47 | P.PN ---
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 She has a known history of paroxysmal atrial fibrillation, not on anticoagulation, cardiomyopathy with most recent echocardiogram in July of this year showing fairly impaired LV systolic function with ejection fraction of about 35% with anteroseptal kinesis and mild anterior wall hypokinesia, hypertension, hyperlipidemia, obstructive sleep apnea for which she could not tolerate the CPAP. Remote history of drug abuse with crack and cocaine which she has abstained from. She is a current smoker and struggles to quit. Denies alcohol use. Presented to the emergency department with complaints of dizziness and feeling her heart racing and she felt as if she was in atrial fibrillation. EMS records confirm atrial fibrillation with rapid ventricular response. She apparently been cleaning her kitchen did have a cup of coffee which she normally does not c onsume inserted feeling unwell with dizziness and some nausea and rapid heart rate. She was initially started on IV Cardizem. She converted to sinus mechanism 01/01 Patient seen and examined at bedside, no acute distress. She denies any shortness of breath, chest pain, palpitations. She stats she has some lightheadedness/foggy feeling in her head when she moves her head from side to side. Her vital signs are stable and she is maintaining sinus mechanism with HR 50s-60s. Meds: Losartan 50 mg daily, metoprolol succinate 50 mg daily, Xarelto 20 mg nightly, spironolactone 25 mg daily GENERAL: Well-appearing, well-nourished and in no acute distress. NECK: Supple without JVD or thyromegaly. LUNGS: Breath sounds clear to auscultation bilaterally. Respiration equal and unlabored. No wheezes, rales or rhonchi. HEART: Regular rate and rhythm without murmurs, rubs or gallops. S1 and S2 heard. EXTREMITIES: Normal range of motion, no edema. No clubbing or cyanosis. Peripheral pulses intact. ASSESSMENT Paroxysmal atrial fibrillation with rapid ventricular response on Xarelto currently Cardiomyopathy, ischemic vs non-ischemic Left bundle branch block Hypertension Obstructive sleep apnea unable to tolerate CPAP Nicotine dependence History of cocaine use PLAN From cardiology's perspective we did have a long discussion with the patient in regards to the rationale including risks and benefits of anticoagulation. Sheis willing to start anticoagulation and is currently on Xarelto 20 mg daily. Medication sent to pharmacy for coverage assistance Continue aldactone, metoprolol and losartan. The patient will require further cardiac workup to rule out underlying ischemia as an outpatient. She will likely require biventricular ICD due to underlying severe cardiomyopathy and left bundle branch block, evaluated as an outpatient Nurse Practitioner note has been reviewed, I agree with a documented findings and plan of care. Patient was seen and examined. Objective - Vital Signs Vital signs: Vital Signs Temp 98.2 F 01/01/22 04:30 Pulse 67 01/01/22 04:30 Resp 16 01/01/22 04:30 BP 146/81 01/01/22 04:30 Pulse Ox 94 L 01/01/22 04:30 FiO2 Intake & Output 12/31/21 01/01/22 01/01/22 18:59 06:59 18:59 Intake Total 540 Balance 540 Weight 113.398 kg Intake: Oral 540 Other: Voiding Method Toilet Toilet # Voids 2 2 - Labs CBC & Chem 7: 01/01/22 08:30 01/01/22 08:30 Labs: Abnormal Lab Results - Last 24 Hours (Table) 12/31/21 Range/Units 10:11 Vitamin B12 1707.0 H (200.0-944.0) pg/mL
[2022-01-01 12:42] VITALS: PULSE 68; RESP 17
[2022-01-01] MEDS: RIVAROXABAN 20 MG TAB PO SCH (16:54)
[2022-01-01 16:55] VITALS: BP 137/84; TEMP 98.2
[2022-01-01 17:06] LABS: Chol/HDL Ratio 4.67 Ratio; LDL Cholesterol,Calculated 106.3 mg/dL (0.0-131.0)
--- NOTE | 2022-01-10 14:53 | P.DS ---
Providers Date of admission: 12/31/21 06:31 Expected date of discharge: 01/01/22 Attending physician: Shravan Lowe Consults: 12/31/21 06:31 Consult Physician Routine Consulting Provider: Richard Albarran Consult Reason/Comments: Atrial fibrillation with rapid ventricular rate Do you want consulting provider notified?: Yes 12/31/21 11:48 Consult Physician Routine Consulting Provider: Wendie Reynoso Consult Reason/Comments: dizziness Do you want consulting provider notified?: Yes Primary care physician: [facility] Course: Discharge diagnosis Atrial fibrillation with RVR Possible right mastoiditis and otitis media. Sinusitis Common cold symptoms, rule out covid or influenza Nausea and vomiting. Most likely viral gastroenteritis Nicotine dependence Substance abuse with marijuana Hypertension History of coronary artery disease and History of asthma, not an active issue. History of migraine Morbid obesity with 38 BMI Hospital course This is a pleasant 51 years old female with past medical history of atrial fibrillation, hypertension, asthma, coronary artery disease. Patient says that she was working in her house cleaning her kitchen, and in the evening when she went to his she started having dizziness with headache and nausea vomiting, she was vomiting contributed leg from 11 PM total 3:00 in the morning. Also she's been having cold symptoms sneezing and coughing with with phlegm but did not bring stuff up this time. Also she is complaining of from frontal sinusitis as she describes. She denies any dyspnea, no chest discomfort: No weakness or numbness or blurred vision or slurred speech. Patient states that she was tested negative workup at that time and all her family members were also tested, not sure of the bursectomy. She smokes about half pack to one pack per day, she was counseled to quit but she declines. She drinks a few and uses marijuana. She's been crying and stating that she is depressed but she denies any suicidal or homicidal ideation. She refused to take antidepression medication and I offered to ask psychiatrist to see her but she declines. Patient states that she has history of depression and anxiety and PTSD. Patient says that she has a normal bowel movement On admission patient was tachycardic 142, currently 56. Blood pressure 128/90. There is some vitals are stable and patient is afebrile. Labs showed mild leukocytosis of 11.8 and hemoglobin 16.9 and platelets 264, supple looks concentrated. INR is 1.0. occluding BMP and liver enzymes were unremarkable. On attempt are negative less than 0.012. TSH normal 2.3 and urinalysis is not suspicious for infection. Urine drug screen Is positive for marijuana EKG: Normal sinus rhythm at [address]-T changes. Patient is started on Cardizem drip 01/01/2022 Patient is currently resting in the bed. Awake alert and oriented x3. No complaints of chest pain or shortness of breath. No palpitations. Patient does have dizziness and lightheadedness but improved clinically. Patient was started on antibiotics and above Augmentin for 10 days for mastoiditis and otitis media. Patient does have chronic otitis media and was seen by ENT previously. Patient was recommended to follow-up with ENT and cardiology follow-up and primary care physician follow-up next 2 to 3 days. Patient is being discharged home today. Currently maintaining sinus rhythm. No other acute overnight issues. Cleared from cardiology and neurology standpoint -GENERAL: The patient is alert and oriented x3, not in any acute distress. Obese -HEENT: Pupils are round and equally reacting to light. EOMI. No scleral icterus. No conjunctival pallor. Normocephalic, atraumatic. No pharyngeal erythema. No thyromegaly. Global left frontal tenderness. Congested nasal mucous membranes CARDIOVASCULAR: S1 and S2 present. No murmurs, rubs, or gallops. PULMONARY: Chest is clear to auscultation, no wheezing or crackles. ABDOMEN: Soft, nontender, nondistended, normoactive bowel sounds. No palpable organomegaly. MUSCULOSKELETAL: No joint swelling or deformity. EXTREMITIES: No cyanosis, clubbing, or pedal edema. NEUROLOGICAL: Gross neurological examination did not reveal any focal deficits. SKIN: No rashes. no petechiae. Vital signs: Vital Signs Temp 98.2 F 01/01/22 04:30 Pulse 67 01/01/22 04:30 Resp 16 01/01/22 04:30 BP 146/81 01/01/22 04:30 Pulse Ox 94 L 01/01/22 04:30 FiO2 Intake & Output 12/31/21 01/01/22 01/01/22 18:59 06:59 18:59 Intake Total 540 Balance 540 Weight 113.398 kg Intake: Oral 540 Other: Voiding Method Toilet Toilet # Voids 2 2 - Labs CBC & Chem 7: 01/01/22 08:30 01/01/22 08:30 Labs: Abnormal Lab Results - Last 24 Hours (Table) 12/31/21 Range/Units 10:11 Vitamin B12 1707.0 H (200.0-944.0) pg/mL Discharge vitals reviewed. Time taking greater than 35 minutes in patient care out of which more than 50% was spent counseling and coordination of care. Patient Condition at Discharge: Fair Plan - Discharge Summary Discharge Rx Participant: Yes New Discharge Prescriptions: New Rivaroxaban [Xarelto] 20 mg PO W/SUPPER #30 tab Spironolactone [Aldactone] 25 mg PO DAILY #30 tab Amoxic-Pot Clav 875-125Mg [Augmentin 875-125] 1 tab PO Q12HR 10 Days #20 tab Continue Losartan [Cozaar] 50 mg PO DAILY #30 tab Metoprolol Succinate (ER) [Toprol XL] 50 mg PO DAILY #30 tab Discontinued Aspirin 325 mg PO DAILY tab Discharge Medication List Losartan [Cozaar] 50 mg PO DAILY #30 tab 08/01/21 [Rx] Metoprolol Succinate (ER) [Toprol XL] 50 mg PO DAILY #30 tab 08/01/21 [Rx] Rivaroxaban [Xarelto] 20 mg PO W/SUPPER #30 tab 01/01/22 [Rx] Spironolactone [Aldactone] 25 mg PO DAILY #30 tab 01/01/22 [Rx] Amoxic-Pot Clav 875-125Mg [Augmentin 875-125] 1 tab PO Q12HR 10 Days #20 tab 01/03/22 [Rx] Follow up Appointment(s)/Referral(s): Gregorio Beltran MD [STAFF PHYSICIAN] - 1 Week (January 10, 10:45) Anival Gann DO [Primary Care Provider] - 1-2 days (office will call you with appt. time) Patient Instructions/Handouts: Spironolactone (By mouth), Rivaroxaban (By mouth), A-fib (Atrial Fibrillation) (GEN) Activity/Diet/Wound Care/Special Instructions: heart healthy diet activity limited until follow up Discharge Disposition: HOME SELF-CARE
== END 2022-01-01 16:54 | disposition home or self-care (01) ==
LOC: EC 03:47 → INTOOBSV 06:31 → 3SCARD 06:31 → UNDODISIN 01-01 16:54
PROVIDERS: ADMIT Internal Medicine; ATTEND Internal Medicine
DX: I48.0 Paroxysmal atrial fibrillation (principal); J32.1 Chronic frontal sinusitis; H66.90 Otitis media, unspecified, unspecified ear; G43.109 Migraine with aura, not intractable, without status migrainosus; I25.2 Old myocardial infarction; I25.10 Atherosclerotic heart disease of native coronary artery without angina pectoris; I10 Essential (primary) hypertension; J45.909 Unspecified asthma, uncomplicated; I44.7 Left bundle-branch block, unspecified; G89.29 Other chronic pain; M25.569 Pain in unspecified knee; I42.9 Cardiomyopathy, unspecified; G47.33 Obstructive sleep apnea (adult) (pediatric); D72.829 Elevated white blood cell count, unspecified; E78.5 Hyperlipidemia, unspecified; F32.A Depression, unspecified; F43.10 Post-traumatic stress disorder, unspecified; F41.9 Anxiety disorder, unspecified; E66.01 Morbid (severe) obesity due to excess calories; Z68.38 Body mass index [BMI] 38.0-38.9, adult; Z71.6 Tobacco abuse counseling; Z20.822 Contact with and (suspected) exposure to COVID-19; F17.210 Nicotine dependence, cigarettes, uncomplicated; Z79.82 Long term (current) use of aspirin; Z79.01 Long term (current) use of anticoagulants; Z79.899 Other long term (current) drug therapy; Z91.040 Latex allergy status; Z88.1 Allergy status to other antibiotic agents; Z88.2 Allergy status to sulfonamides; Z88.5 Allergy status to narcotic agent; Z91.018 Allergy to other foods; Z90.710 Acquired absence of both cervix and uterus; Z98.51 Tubal ligation status; Z87.898 Personal history of other specified conditions; Z90.49 Acquired absence of other specified parts of digestive tract; Z98.890 Other specified postprocedural states; Z82.49 Family history of ischemic heart disease and other diseases of the circulatory system; Z82.61 Family history of arthritis
CPT/HCPCS: 96366 ×2; 96375; 96376; 96365; 99291; 36415; 80061; 80053; 80048; 82607; 82746; 83735; 84443; 84484; 85025; 85027; 85610; 85730; 81003; 80306; 87502; 83036; 84145; 87635; 71045; 93880; 70450; G0378 ×2; J2405; 99285

== ENCOUNTER → 2022-01-29 | Outpatient (CLI) | payer OTHER ==
[2022-01-29 15:01] LABS: HGB 14.8 g/dL (12.0-15.0); MCH 29.8 pg (27.0-32.0); MCHC 32.9 g/dL (32.0-37.0); MCV 90.5 fL (80.0-97.0); Mean Platelet Volume 11.7 fL (9.5-12.2); NRBC Per 100 WBC 0 /100 WBCS (0.0-0.0); Platelet Count 240 X 10*3/uL (140-440); RBC 4.97 X 10*6/uL (4.10-5.20); RDW 13.2 % (11.5-14.5); WBC 12.17 X 10*3/uL (4.50-10.00)
[2022-01-29 15:12] LABS: Anion Gap 9.5 mmol/L (10.00-18.00); Blood Urea Nitrogen 8.6 mg/dL (9.0-27.0); Carbon Dioxide 26.5 mmol/L (20.0-27.5); Non-African American GFR(CKD) 75.1 (60.0-200.0); Potassium 4.5 mmol/L (3.5-5.5)
== END | disposition home or self-care (01) ==
LOC: LABPAT 08:50
PROVIDERS: ATTEND Internal Medicine Interventional Cardiology
DX: Z01.812 Encounter for preprocedural laboratory examination (principal); I42.8 Other cardiomyopathies
CPT/HCPCS: 80051; 82565; 84520; 85027

== ENCOUNTER 2022-02-01 06:25 | Day surgery (SDC) | payer OTHER ==
[2022-02-01] MEDS ORDERED: HEPARIN SODIUM,PORCINE 10,000 UNIT in SODIUM CHLORIDE 0.9% 1,000 ML IRRIGATION PRN (06:30)
[2022-02-01] MEDS ORDERED: HEPARIN SODIUM,PORCINE 2,500 UNIT in SODIUM CHLORIDE 0.9% 250 ML IRRIGATION PRN (06:30)
[2022-02-01] MEDS ORDERED: ATORVASTATIN 80 MG TAB PO STA (06:30)
[2022-02-01] MEDS ORDERED: ALPRAZolam 0.25 MG TAB PO PRN (06:30)
[2022-02-01] MEDS ORDERED: SODIUM CHLORIDE 0.9% 1,000 ML in EMPTY BAG 1 BAG IV SCH (06:30)
[2022-02-01] MEDS ORDERED: NITROGLYCERIN SL TABS 0.4 MG TAB SUBLINGUAL PRN (06:30)
[2022-02-01] MEDS ORDERED: ASPIRIN 325 MG TAB PO STA (06:30)
[2022-02-01] MEDS ORDERED: ALPRAZolam 0.5 MG TAB PO PRN (06:30)
[2022-02-01 06:56] VITALS: RESP 18; TEMP 98.8
[2022-02-01] MEDS ORDERED: VERAPAMIL 2.5 MG/ML 2 ML AMP ONE (07:18)
[2022-02-01] MEDS ORDERED: fentaNYL (PF) 50 MCG/ML 2 ML AMP ONE (07:28)
[2022-02-01] MEDS ORDERED: HEPARIN SODIUM 1,000 UN/ML (10ML VL) ONE (07:31)
[2022-02-01] MEDS ORDERED: fentaNYL (PF) 50 MCG/ML 2 ML AMP IV ONE (07:36)
[2022-02-01] MEDS ORDERED: LIDOCAINE 1% INJ 10MG/ML (30 ML VIAL-PF) SQ ONE ×2 (07:39→07:40)
[2022-02-01] MEDS ORDERED: VERAPAMIL 2.5 MG/ML 2 ML AMP INTRAARTER ONE (07:39)
[2022-02-01] MEDS ORDERED: MIDAZOLAM 2 MG/2 ML VIAL IV ONE (07:39)
[2022-02-01] MEDS ORDERED: HEPARIN SODIUM 1,000 UN/ML (10ML VL) IV ONE (07:44)
[2022-02-01] MEDS ORDERED: IOPAMIDOL-370 125ML BTL INJ ONE (07:53)
[2022-02-01] MEDS ORDERED: IOPAMIDOL-370 100ML BTL INJ ONE (07:57)
[2022-02-01] MEDS ORDERED: RX INFO: IV CONTRAST WAS GIVEN 1 EACH MISC MISCELLANE PRN (08:03)
--- NOTE | 2022-02-01 08:10 | P.CARDCATH ---
Date of Procedure: 02/01/22 Description of Procedure: Cardiac Catheterization: The patient is a 51-year-old female with a known history of hypertension, chronic tobacco abuse and cardiomyopathy in addition to a left bundle branch block. She continues to have symptoms of dyspnea on exertion. Recommendations were made regarding cardiac catheterization, the risks and the complications were discussed with the patient who is in full understanding and agreement. Procedure Description: Patient was brought to chemical lab technician in fasting semi-sedated state after receiving Fentanyl and Benadryl achieiving moderate conscious sedated state. Using Xylocaine Anesthesia and Seldinger technique, a 6[place] sheath was introduced in the right radial artery . Subsequently, selective coronary angiography was performed using a 5-[place] 3.5 bend Bhargav catheter. Multiple views of the coronary artery including hemiaxial views were obtained. The 5-[place] pigtail catheter was used to cross the aortic valve and LVEDP was calculated. An VARNER view of the left ventricle was obtained. Following that, catheter and sheath were removed. Hemostasis was obtained with deployment of TR band . There was no immediate complication. Patient was returned to room in stable condition. Of note, the patient received a total of 5000 units of intravenous heparin as well as intra-arterial verapamil. Findings: Left main: This is a large-size vessel, trifurcating into LAD, left circumflex and ramus intermedius, left main has no high-grade stenosis. LAD: This is a large-size vessel, reaching to the apex giving rise to small diagonal branch, the LAD has no high-grade stenosis Left circumflex: This is a large nondominant vessel giving rise to a large obtuse marginal branch that has no evidence of high-grade stenosis RCA: This is a large dominant vessel, bifurcating into PDA and PLV, the RCA and its branches have no evidence of high-grade stenosis Ramus intermedius: This is a large-size vessel covering the lateral wall, and has no evidence of high-grade stenosis Left Ventriculogram: Performed in the 30 VARNER view revealed a normal left ventricle size and systolic function ejection fraction is about 60% there was no significant mitral regurgitation Hemodynamics: There was no gradient across the aortic valve, LVEDP was 20-25 mmHg Conclusion: 1. Normal coronary arteries 2. Right dominance 3. Normal limits ventricle size and systolic function 4. Elevated LVEDP Recommendations: Have recommended to continue medical therapy. There is improvement in the left ventricle systolic function, we'll continue aggressive coronary risk modification. The findings and the recommendations were discussed with the patient and the family and they were in full understanding and agreement. Duration of sedation is 17 minutes.
[2022-02-01] MEDS ORDERED: SODIUM CHLORIDE 0.9% 1,000 ML IV SCH (08:15)
[2022-02-01] MEDS ORDERED: SPIRONOLACTONE 25 MG TAB PO SCH (09:00)
[2022-02-01] MEDS ORDERED: ACETAMINOPHEN TAB 325 MG TAB ONE (10:35)
[2022-02-01] MEDS ORDERED: ACETAMINOPHEN TAB 325 MG TAB PO PRN (10:36)
[2022-02-01 11:27] VITALS: BP 138/66; PULSE 61
[2022-02-01] MEDS ORDERED: LOSARTAN 50 MG TAB PO SCH (12:00)
[2022-02-02] MEDS ORDERED: METOPROLOL SUCCINATE (ER) 50 MG TAB.ER.24H PO SCH (09:00)
== END 2022-02-01 11:51 | disposition home or self-care (01) ==
LOC: CATHCVL 06:25
PROVIDERS: ATTEND Internal Medicine Interventional Cardiology
DX: I42.8 Other cardiomyopathies (principal); F17.210 Nicotine dependence, cigarettes, uncomplicated; I25.10 Atherosclerotic heart disease of native coronary artery without angina pectoris; I44.7 Left bundle-branch block, unspecified; I48.0 Paroxysmal atrial fibrillation; I11.0 Hypertensive heart disease with heart failure; I50.1 Left ventricular failure, unspecified
CPT/HCPCS: 93458; C1769 ×2; C1894; J2250; J2001; J3010; J1644; Q9967 ×2

== ENCOUNTER 2023-04-10 06:42 | Emergency (ER) | payer OTHER ==
--- NOTE | 2023-04-10 07:13 | ED ---
Allergic Reaction HPI - General Chief complaint: Allergic Reaction Stated complaint: Allergic Reaction Time Seen by Provider: 04/10/23 07:02 Source: patient, RN notes reviewed Mode of arrival: ambulatory Limitations: no limitations - History of Present Illness Initial Comments: Patient is a 52-year-old female presented to the emergency room today with a chief complaint of possible ALLERGIC reaction. She does admit that she's used a new laundry detergent.. She to her arms also some spots in her chest and face. States she's been trying Benadryl one tablet every 4-5 hours with some relief. She states she's had multiple ALLERGIC reactions in the past. Denies any other complaints or symptoms at this time. Patient denies any recent fever, chills, shortness of breath, chest pain, back pain, abdominal pain, nausea or vomiting, numbness or tingling, headaches or visual changes, or any other complaints. - Related Data Home Medications Medication Instructions Recorded Confirmed Losartan [Cozaar] 100 mg PO 1200 01/30/22 02/01/22 Previous Rx's Medication Instructions Recorded Metoprolol Succinate (ER) [Toprol 50 mg PO DAILY #30 tab 08/01/21 XL] Rivaroxaban [Xarelto] 20 mg PO W/SUPPER #30 tab 01/01/22 Spironolactone [Aldactone] 25 mg PO DAILY #30 tab 01/01/22 predniSONE [Deltasone] 20 mg PO BID 5 Days #10 tab 04/10/23 Allergies Allergy/AdvReac Type Severity Reaction Status Date / Time adhesive Allergy red skin, Verified 04/10/23 06:59 pulls skin off latex Allergy Dyspnea/Bret Verified 04/10/23 06:59 h/Hives morphine Allergy nauseated, Verified 04/10/23 06:59 dizzy ofloxacin [From Floxin] Allergy Swelling Verified 04/10/23 06:59 of Ear Drums Sulfa (Sulfonamide Allergy Swelling Verified 04/10/23 06:59 Antibiotics) sulfamethoxazole Allergy Swelling Verified 04/10/23 06:59 [From Bactrim] trimethoprim [From Bactrim] Allergy Swelling Verified 04/10/23 06:59 nifedipine [From Procardia] AdvReac Increased Verified 04/10/23 06:59 Blood Pressure olmesartan medoxomil AdvReac Decreased Verified 04/10/23 06:59 [From Benicar] Heart Rate berries Allergy Rash/Hives Uncoded 04/10/23 06:59 nuts Allergy Rash/Hives Uncoded 04/10/23 06:59 Review of Systems ROS Statement: Those systems with pertinent positive or pertinent negative responses have been documented in the HPI. ROS Other: All systems not noted in ROS Statement are negative. Past Medical History Past Medical History: Atrial Fibrillation, Asthma, Hypertension, Myocardial Infarction (PR) Additional Past Medical History / Comment(s): migraines, recent adm. to [facility] for a-fib, & ear infection, still w/fluid in ear but is better Last Myocardial Infarction Date:: 2017 History of Any Multi-Drug Resistant Organisms: None Reported Past Surgical History: Cholecystectomy, Ear Surgery, Hysterectomy, Tubal Ligation Additional Past Surgical History / Comment(s): carpal tunnel, cone biopsy, core biopsy Past Anesthesia/Blood Transfusion Reactions: Postoperative Nausea & Vomiting (PONV) Additional Past Anesthesia/Blood Transfusion Reaction / Comment(s): Emesis after anesthesia Past Psychological History: Anxiety Smoking Status: Current every day smoker Past Alcohol Use History: None Reported Past Drug Use History: None Reported - Past Family History Father Family Medical History: No Reported History Additional Family Medical History / Comment(s): Father is alive at age 69 with history of hypertension. Mother Additional Family Medical History / Comment(s): Mother is alive at age 65 with history of rheumatoid arthritis. Sister(s) Additional Family Medical History / Comment(s): Patient has one sister that was "born crippled.". Patient has 3 children ages 28, 23 and 20 with no major medical problems. General Exam - General Exam Comments Initial Comments: General: The patient is awake and alert, in no distress, and does not appear acutely ill. Eye: Pupils are equal, round and reactive to light, extra-ocular movements are intact. No nystagmus. There is normal conjunctiva bilaterally. No signs of icterus. Ears, nose, mouth and throat: There are moist mucous membranes and no oral lesions. TMs clear bilaterally. Neck: The neck is supple, there is no tenderness or JVD. Cardiovascular: There is a regular rate and rhythm. No murmur, rub or gallop is appreciated. Respiratory: Lungs are clear to auscultation, respirations are non-labored, breath sounds are equal. No wheezes, stridor, rales, or rhonchi. Musculoskeletal: Normal ROM, no tenderness. Strength 5/5. Neurological: A&O x 3. CN II-XII intact, There are no obvious motor or sensory deficits. Coordination appears grossly intact. Speech is normal. Skin: Skin is warm and dry and no rashes or lesions are noted. Psychiatric: Cooperative, appropriate mood & affect, normal judgment. Limitations: no limitations Course Vital Signs 04/10/23 06:50 Temperature 97.5 F L Pulse Rate 74 Respiratory 20 Rate Blood Pressure 129/72 O2 Sat by Pulse 99 Oximetry Medical Decision Making - Medical Decision Making History was obtained from patient/Nurse/Family/ Initial assessment and chief complaint: ALLERGIC reaction Chronic conditions affecting care: Hip, asthma, hypertension Social determinants affecting care: None Differential diagnosis included, but not limited to:. Contact dermatitis, ALL ERGIC reaction 52-year-old female presented to the emergency room today with a chief complaint of ALLERGIC reaction. Does admit to a new laundry injury. Was discussed about the possibility of this causing rash and itching. Patient advised them to 1-2 tabs every 6 hours along with [id number] Pepcid and will be given a prescription for prednisone which extends into her pharmacy. Advised to follow with PCP or return here to emergency room for any other concerns. States her stated and prescription plan. Disposition Clinical Impression: Allergic reaction, Allergic reaction to latex Disposition: HOME SELF-CARE Condition: Good Instructions (If sedation given, give patient instructions): Urticaria (ED) Prescriptions: predniSONE [Deltasone] 20 mg PO BID 5 Days #10 tab Is patient prescribed a controlled substance at d/c from ED?: No Referrals: Anival Gann DO [Primary Care Provider] - 1-2 days Time of Disposition: 07:12
[2023-04-10] MEDS ORDERED: predniSONE 50 MG TAB PO STA (07:59)
[2023-04-10 08:05] VITALS: BP 137/86; PULSE 65; RESP 16; TEMP 97.9
== END 2023-04-10 08:08 | disposition home or self-care (01) ==
LOC: EC 06:42
DX: T65.811A Toxic effect of latex, accidental (unintentional), initial encounter (principal); T49.2X5A Adverse effect of local astringents and local detergents, initial encounter; J45.909 Unspecified asthma, uncomplicated; I10 Essential (primary) hypertension; I25.2 Old myocardial infarction; I48.91 Unspecified atrial fibrillation; F41.9 Anxiety disorder, unspecified; F17.200 Nicotine dependence, unspecified, uncomplicated; Z91.040 Latex allergy status; Z88.8 Allergy status to other drugs, medicaments and biological substances; Z88.2 Allergy status to sulfonamides; Z88.1 Allergy status to other antibiotic agents; Z88.5 Allergy status to narcotic agent; Z91.018 Allergy to other foods; Z79.899 Other long term (current) drug therapy
CPT/HCPCS: 99283; J7512